=== PATIENT | male | born 1990 | race Caucasian/White ===

== ENCOUNTER 2019-10-18 22:22 | Inpatient (IN) | payer OTHER, SELFPAY ==
[2019-10-18] MEDS ORDERED: NA CHLORIDE 0.9% 1,000 ML ONE ×2 (23:00→23:40)
[2019-10-18 23:06] LABS: Absolute Lymphocytes (CBC) 1.4 K/uL (0.7-4.9); Basophils % 1.2 % (0-1.3); Hematocrit 37.7 % (39.6-49.0); Lymphocytes % 28.3 % (15.3-44.8); MPV 7.3 fL (7.6-11.3); RBC Red Blood Cell Count 4.03 M/uL (4.33-5.43)
[2019-10-18 23:19] LABS: ALT/SGPT 28 U/L (12-78); AST/SGOT 15 U/L (15-37); Albumin 3.7 g/dL (3.4-5.0); Alkaline Phosphatase 84 U/L (45-117); BUN Blood Urea Nitrogen 9 mg/dL (7-18); Bicarbonate 23 mmol/L (21-32); Bilirubin Direct < 0.1 mg/dL (0-0.2); Bilirubin Total 0.3 mg/dL (0.2-1.0); Lipase 1772 U/L (73-393); Potassium 3.6 mmol/L (3.5-5.1); Protein, Total 6.2 g/dL (6.4-8.2); Sodium Level 135 mmol/L (136-145)
[2019-10-18 23:20] LABS: Glucose Level 558 mg/dL (74-106)
--- NOTE | 2019-10-18 23:31 | ER ---
Nurse's Notes [facility] Name: Chinmay Mitchell Age: 29 yrs Sex: Male : 1990 Arrival Date: 10/18/2019 Time: 22:23 Bed 15 Private MD: Diagnosis: Other acute pancreatitis;Hyperglycemia, unspecified Presentation: 10/17 22:29 Chief complaint: Patient states: he is having abdominal pain since this morning with 3 bb to 4 episodes of diarrhea pt is type 1 diabetic his last BGL was 140 at 1800, he denies cough or fever. Coronavirus screen: At this time, the client does not indicate any symptoms associated with coronavirus-19. Ebola Screen: No symptoms or risks identified at this time. Initial Sepsis Screen: Does the patient meet any 2 criteria? No. Patient's initial sepsis screen is negative. Does the patient have a suspected source of infection? No. Patient's initial sepsis screen is negative. Risk Assessment: Do you want to hurt yourself or someone else? Patient reports no desire to harm self or others. Onset of symptoms was October 18, 2019. 22:29 Method Of Arrival: Ambulatory bb 22:29 Acuity: BROOKE 3 bb Triage Assessment: 22:32 General: Appears uncomfortable, slender, Behavior is calm, cooperative. Pain: Complains bb of pain in abdomen Pain currently is 10 out of 10 on a pain scale. GI: Reports upper abdominal pain, diarrhea. Historical: - Allergies: 22:32 Amoxicillin; bb - Home Meds: 22:32 insulin [Active]; bb - PMHx: 22:32 Diabetes - IDDM; bb - PSHx: 22:32 None; bb - Immunization history:: Adult Immunizations up to date. - Social history:: Smoking status: Patient reports the use of cigarette tobacco products, smokes one pack cigarettes per day. Screenin:30 Abuse screen: Denies threats or abuse. Nutritional screening: No deficits noted. vc Tuberculosis screening: No symptoms or risk factors identified. Fall Risk None identified. Assessment: 22:30 GI: Bowel sounds present X 4 quads. Abdomen is tender to palpation Guarding noted. vc 22:30 General: Appears in no apparent distress. uncomfortable, Behavior is calm, cooperative, vc appropriate for age. Pain: Complains of pain in left upper quadrant Pain does not radiate. Pain currently is 10 out of 10 on a pain scale. Quality of pain is described as sharp, stabbing, Pain began gradually, Is intermittent. Neuro: Level of Consciousness is awake, alert, obeys commands, Oriented to person, place, time, situation, Appropriate for age. Cardiovascular: Capillary refill < 3 seconds Patient's skin is warm and dry. Respiratory: Airway is patent Respiratory effort is even, unlabored, Respiratory pattern is regular, symmetrical. : No signs and/or symptoms were reported regarding the genitourinary system. EENT: No signs and/or symptoms were reported regarding the EENT system. Derm: Skin is intact, is healthy with good turgor, Skin temperature is warm. Musculoskeletal: Circulation, motion, and sensation intact. Range of motion:. 23:30 Reassessment: Patient appears in no apparent distress at this time. Patient and/or vc family updated on plan of care and expected duration. Pain level reassessed. Patient is alert, oriented x 3, equal unlabored respirations, skin warm/dry/pink. 10/18 00:30 Reassessment: Patient appears in no apparent distress at this time. Patient and/or vc family updated on plan of care and expected duration. Pain level reassessed. Patient is alert, oriented x 3, equal unlabored respirations, skin warm/dry/pink. Patient states symptoms have not improved. 01:14 Reassessment: FSBS 263. Reassessment: Patient appears in no apparent distress at this vc time. Patient and/or family updated on plan of care and expected duration. Pain level reassessed. Patient is alert, oriented x 3, equal unlabored respirations, skin warm/dry/pink. Patient states symptoms have improved. Vital Signs: 10/17 22:29 BP 146 / 91; Pulse 102; Resp 18 S; Temp 98.3(O); Pulse Ox 98% on R/A; Weight 68.04 kg bb (R); Height 5 ft. 10 in. (177.80 cm) (R); Pain 12/17; 22:30 BP 141 / 86; Pulse 91; Resp 18; Pulse Ox 99% ; vc 23:00 BP 133 / 92; Pulse 84; Resp 18; Pulse Ox 100% on R/A; vc 23:30 BP 139 / 86; Pulse 90; Resp 18; Pulse Ox 100% on R/A; vc 08/11 00:00 BP 126 / 75; Pulse 101; Resp 18; Pulse Ox 99% on R/A; vc 01:10 BP 127 / 79; Pulse 86; Resp 17; Pulse Ox 100% ; vc 10/17 22:29 Body Mass Index 21.52 (68.04 kg, 177.80 cm) bb ED Course: 10/17 22:23 Patient arrived in ED. cl3 22:31 Triage completed. bb 22:32 Arm band placed on Patient placed in an exam room, on a stretcher, on pulse oximetry. bb 22:36 Hiwot Morrison, TRELL is Primary Nurse. vc 22:38 Yusuf Jacobs PA is PHCP. jr8 22:38 Param Walden MD is Attending Physician. jr8 22:45 Initial lab(s) drawn, by me, sent to lab. Inserted saline lock: 20 gauge in right jp3 forearm, using aseptic technique. Blood collected. Patient maintains SpO2 saturation greater than 95% on room air. 22:52 Bed in low position. Call light in reach. Side rails up X 1. Verbal reassurance given. jp3 Pulse ox on. NIBP on. 22:52 Notified Nurse Practitioner and/or Physician Journeyman Molder of POC Blood Sugar reading = HI. jp3 23:30 Zahra Spencer MD is Hospitalizing Provider. jr8 10/18 02:01 No provider procedures requiring assistance completed. Patient admitted, IV remains in vc place. Administered Medications: 10/17 22:55 Drug: NS 0.9% 1000 ml Route: IV; Rate: 1000 ml; Site: right forearm; 23:53 Follow up: IV Status: Completed infusion vc 23:36 Drug: Insulin Regular Human 10 units {Co-Signature: [email or web address] (Liliana Recio RN).} Route: vc Sub-Q; Site: abdomen; 10/18 01:13 Follow up: Response: Blood sugar is lowered 10/17 23:36 Drug: NS 0.9% 1000 ml Route: IV; Rate: 125 ml/hr; Site: right antecubital; 10/18 01:14 Follow up: IV Status: Infusion continued upon admission vc 10/17 23:38 Drug: Insulin Regular Human 10 units {Co-Signature: asher (Liliana Recio RN).} Route: vc IVP; Site: right forearm; 10/18 01:13 Follow up: Response: Blood sugar is lowered vc Outcome: 10/17 23:30 Decision to Hospitalize by Provider. nelly 10/18 02:01 Admitted to Med/surg accompanied by tech, via wheelchair, with chart. vc Condition: good Instructed on the need for admit. 02:01 Patient left the ED. vc Signatures: Bronwyn Holbrook, RN RN Yusuf Maria PA PA jr8 Bo Lorenzo jp3 Brett Bee cl3 Hiwot Morrison RN RN vc Liliana Recio RN ks7
--- NOTE | 2019-10-18 23:31 | EDPHYS ---
Physician Documentation [facility] Name: Chinmay Mitchell Age: 29 yrs Sex: Male : 1990 Arrival Date: 10/18/2019 Time: 22:23 Bed 15 Private MD: ED Physician Param Walden HPI: 10/17 23:22 This 29 yrs old Male presents to ER via Ambulatory with complaints of jr8 Abdominal Pain. 23:22 The patient presents with abdominal pain in the upper abdomen. Onset: The jr8 symptoms/episode began/occurred acutely, this morning. The symptoms do not radiate. Associated signs and symptoms: Pertinent positives: diarrhea, nausea. The symptoms are described as sharp. Modifying factors: The symptoms are alleviated by nothing, the symptoms are aggravated by nothing. Severity of pain: At its worst the pain was moderate in the emergency department the pain is unchanged. The patient has not experienced similar symptoms in the past. The patient has not recently seen a physician. Historical: - Allergies: 22:32 Amoxicillin; bb - Home Meds: 22:32 insulin [Active]; bb - PMHx: 22:32 Diabetes - IDDM; bb - PSHx: 22:32 None; bb - Immunization history:: Adult Immunizations up to date. - Social history:: Smoking status: Patient reports the use of cigarette tobacco products, smokes one pack cigarettes per day. ROS: 23:27 Eyes: Negative for injury, pain, redness, and discharge, ENT: Negative for injury, jr8 pain, and discharge, Neck: Negative for injury, pain, and swelling, Cardiovascular: Negative for chest pain, palpitations, and edema, Respiratory: Negative for shortness of breath, cough, wheezing, and pleuritic chest pain, Back: Negative for injury and pain, MS/Extremity: Negative for injury and deformity, Skin: Negative for injury, rash, and discoloration, Neuro: Negative for headache, weakness, numbness, tingling, and seizure. 23:27 Abdomen/GI: Positive for abdominal pain, nausea, diarrhea, Negative for abdominal distension, anorexia, hematemesis, black/tarry stool, rectal pain, rectal bleeding, bowel incontinence, flatulence. Exam: 23:27 Eyes: Pupils equal round and reactive to light, extra-ocular motions intact. Lids and jr8 lashes normal. Conjunctiva and sclera are non-icteric and not injected. Cornea within normal limits. Periorbital areas with no swelling, redness, or edema. ENT: Nares patent. No nasal discharge, no septal abnormalities noted. Tympanic membranes are normal and external auditory canals are clear. Oropharynx with no redness, swelling, or masses, exudates, or evidence of obstruction, uvula midline. Mucous membranes moist. Neck: Trachea midline, no thyromegaly or masses palpated, and no cervical lymphadenopathy. Supple, full range of motion without nuchal rigidity, or vertebral point tenderness. No Meningismus. Cardiovascular: Regular rate and rhythm with a normal S1 and S2. No gallops, murmurs, or rubs. Normal PMI, no JVD. No pulse deficits. Respiratory: Lungs have equal breath sounds bilaterally, clear to auscultation and percussion. No rales, rhonchi or wheezes noted. No increased work of breathing, no retractions or nasal flaring. Back: No spinal tenderness. No costovertebral tenderness. Full range of motion. Skin: Warm, dry with normal turgor. Normal color with no rashes, no lesions, and no evidence of cellulitis. MS/ Extremity: Pulses equal, no cyanosis. Neurovascular intact. Full, normal range of motion. Neuro: Awake and alert, GCS 15, oriented to person, place, time, and situation. Cranial nerves II-XII grossly intact. Motor strength 5/5 in all extremities. Sensory grossly intact. Cerebellar exam normal. Normal gait. 23:27 Abdomen/GI: Inspection: abdomen appears normal, Bowel sounds: active, all quadrants, Palpation: soft, in all quadrants, moderate abdominal tenderness, in the epigastric area and left upper quadrant, mass, is not appreciated, rebound tenderness, is not appreciated, voluntary guarding, is not appreciated, involuntary guarding, is not appreciated, no appreciated organomegaly, Indicators: McBurney's point is not tender, Lawson's sign is negative, Rovsing's sign is negative, Liver: tenderness, is not appreciated. Vital Signs: 22:29 BP 146 / 91; Pulse 102; Resp 18 S; Temp 98.3(O); Pulse Ox 98% on R/A; Weight 68.04 kg bb (R); Height 5 ft. 10 in. (177.80 cm) (R); Pain 10/10; 22:30 BP 141 / 86; Pulse 91; Resp 18; Pulse Ox 99% ; vc 23:00 BP 133 / 92; Pulse 84; Resp 18; Pulse Ox 100% on R/A; vc 23:30 BP 139 / 86; Pulse 90; Resp 18; Pulse Ox 100% on R/A; vc 10/18 00:00 BP 126 / 75; Pulse 101; Resp 18; Pulse Ox 99% on R/A; vc 01:10 BP 127 / 79; Pulse 86; Resp 17; Pulse Ox 100% ; vc 10/17 22:29 Body Mass Index 21.52 (68.04 kg, 177.80 cm) bb MDM: 10/17 22:38 Patient medically screened. [facility] 23:29 Data reviewed: vital signs, nurses notes, lab test result(s), radiologic studies, CT jr scan. Data interpreted: Pulse oximetry: on room air is 98 %. Interpretation: normal. Counseling: I had a detailed discussion with the patient and/or guardian regarding: the historical points, exam findings, and any diagnostic results supporting the discharge/admit diagnosis, lab results, radiology results, the need for further work-up and treatment in the hospital. 10/17 22:38 Order name: Basic Metabolic Panel [facility] 10/17 22:38 Order name: CBC with Diff [facility] 10/17 22:38 Order name: Hepatic Function [facility] 10/17 22:38 Order name: Lipase [facility] 10/17 22:47 Order name: Ketone, Serum [facility] 10/17 22:59 Order name: Glucose, Ancillary Testing; Complete Time: 23:13 [facility] 10/17 23:08 Order name: CBC with Automated Diff; Complete Time: 23:13 EDOH 10/17 23:20 Order name: Basic Metabolic Panel; Complete Time: 23:23 EDOH 10/17 23:20 Order name: Liver (Hepatic) Function; Complete Time: 23:23 EDOH 10/17 23:20 Order name: Lipase; Complete Time: 23:23 EDOH 10/17 23:25 Order name: CT Abd/Pelvis - IV Contrast Only [facility] 10/18 01:25 Order name: Glucose, Ancillary Testing; Complete Time: 01:34 EDOH 10/17 22:38 Order name: IV Saline Lock; Complete Time: 22:54 [facility] 10/17 22:38 Order name: Labs collected and sent; Complete Time: 22:54 jr8 Administered Medications: 22:55 Drug: NS 0.9% 1000 ml Route: IV; Rate: 1000 ml; Site: right forearm; vc 23:53 Follow up: IV Status: Completed infusion vc 23:36 Drug: Insulin Regular Human 10 units {Co-Signature: [email or web address] (Liliana Recio RN).} Route: vc Sub-Q; Site: abdomen; 10/18 01:13 Follow up: Response: Blood sugar is lowered vc 10/17 23:36 Drug: NS 0.9% 1000 ml Route: IV; Rate: 125 ml/hr; Site: right antecubital; vc 10/18 01:14 Follow up: IV Status: Infusion continued upon admission vc 10/17 23:38 Drug: Insulin Regular Human 10 units {Co-Signature: [email or web address] (Liliana Recio RN).} Route: vc IVP; Site: right forearm; 10/18 01:13 Follow up: Response: Blood sugar is lowered vc Disposition: 10/18/19 23:30 Hospitalization ordered by Zahra Spencer for Inpatient Admission. Preliminary diagnosis are Other acute pancreatitis, Hyperglycemia, unspecified. - Bed requested for Telemetry/MedSurg (Inpatient). - Status is Inpatient Admission. vc - Condition is Stable. - Problem is new. - Symptoms are unchanged. Addendum: 10/25/2019 07:04 Co-signature as Attending Physician, Param Walden MD. r n Signatures: Dispatcher [employer] EDMS Bronwyn Holbrook RN RN bb Nieto, Roman, MD MD rn Roszak, Josh, PA PA jr8 Nelsy Lewis RN RN Hiwot Morrison RN RN Liliana Recio RN [email or web address] Corrections: (The following items were deleted from the chart) 10/18 01:01 10/17 23:30 Hospitalization Ordered by Zahra Spencer MD for Inpatient Admission. cg Preliminary diagnosis is Other acute pancreatitis; Hyperglycemia, unspecified. Bed requested for Telemetry/MedSurg (Inpatient). Status is Inpatient Admission. Condition is Stable. Problem is new. Symptoms are unchanged. jr8 10/18 02:01 01:01 10/18/2019 23:30 Hospitalization Ordered by Zahra Spencer MD for Inpatient vc Admission. Preliminary diagnosis is Other acute pancreatitis; Hyperglycemia, unspecified. Bed requested for Telemetry/MedSurg (Inpatient). Status is Inpatient Admission. Condition is Stable. Problem is new. Symptoms are unchanged. cg
[2019-10-18] MEDS ORDERED: INSULIN -REGULAR HUMAN 50 UNIT/0.5 ML ML ONE (23:39)
--- NOTE | 2019-10-19 01:08 | P.HP ---
Certification for Inpatient With expected LOS: >2 Midnights Patient will require the following post-hospital care: None Practitioner: I am a practitioner with admitting privileges, knowledge of patient current condition, hospital course, and medical plan of care. Services: Services provided to patient in accordance with Admission requirements found in Title 42 Section 412.3 of the Code of Federal Regulations <Jesus Gunter - Last Filed: 10/19/19 01:11> Patient History Date of Service: 10/19/19 Primary Care Provider: Alex Martinez Reason for admission: Acute pancreatitis History of Present Illness: 29-year-old male with a past medical history of type 1 diabetes mellitus presents to the emergency room with complaints of worsening abdominal pain. Patient states that the onset was acutely this morning and has progressively worsened. Patient states he has had some diarrhea and nausea this morning and now has mostly resolved. In the emergency room patient was noted to have a blood glucose higher than 500 on fingerstick with lab work showing a glucose level of 558. Patient states that he did not take his medication today. States he had breakfast and had worsening abdominal pain. States he went to the rest on the bed and his pain never resolved. He came to the emergency room. Patient states he does not drink alcohol. He is a heavy smoker and smokes 1 pack of cigarettes per day. Denies any drug use. Lab work in the emergency room shows a blood glucose of 558. Patient has a lipase of 1772. Rest of lab work is unremarkable. CT scan abdomen pelvis pending. On physical exam patient is complaining of left upper quadrant pain. States that the pain medications have helped but that all last long enough. He is alert and oriented x3. In mild distress from the left upper quadrant pain. Patient will be admitted and further evaluated. Home medications list reviewed: Yes - Past Medical/Surgical History Diabetic: Yes -: Type 1 diabetes mellitus -: None Psychosocial/ Personal History: , lives at home with - Family History Family History: Reviewed- Non-Contributory - Social History Smoking Status: Heavy Tobacco smoker (>10 cigarettes/day) Counseled patient to stop smoking for: more than 10 minutes Smoking therapy provided: No (Refused) Patient receptive to therapy: No Alcohol use: No CD- Drugs: No Caffeine use: Yes Place of Residence: Home <Jesus Gunter - Last Filed: 10/19/19 01:11> Date of Service: 10/26/19 <Zahra Spencer - Last Filed: 10/26/19 11:43> Allergies amoxicillin Allergy (Verified 10/19/19 02:45) Unknown Home Medications: Insulin Detemir [Levemir Flextouch] 30 unit SQ BID 10/19/19 Review of Systems General: As per HPI Eyes: Unremarkable ENT: Unremarkable Respiratory: Unremarkable Cardiovascular: Unremarkable Gastrointestinal: Nausea, Vomiting, Abdominal Pain (Left upper quadrant pain), Diarrhea Genitourinary: Unremarkable Musculoskeletal: Unremarkable Integumentary: Unremarkable Neurological: Unremarkable <Jesus Gunter - Last Filed: 10/19/19 01:11> Physical Examination - Vital Signs Temperature: 98.3 F Blood Pressure: 146/91 Pulse: 102 Respirations: 18 Pulse Ox (%): 98 (RA) - Physical Exam General: Alert, Oriented x3, Mild distress HEENT: Atraumatic, Normocephalic, PERRLA, Mucous membr. moist/pink Neck: Supple, No Thyromegaly Respiratory: Clear to auscultation bilaterally, Normal air movement Cardiovascular: No edema, Normal pulses, Normal S1 S2 Capillary refill: <2 Seconds Gastrointestinal: Normal bowel sounds, Soft and benign, Tenderness (Mild to moderate pain with palpation to left upper quadrant) Musculoskeletal: No clubbing, No swelling, No contractures Integumentary: No breakdown, No significant lesion, No tenderness/swelling Neurological: Normal speech, Normal strength at 5/5 x4 extr, Normal tone - Studies Laboratory Data (last 24 hrs) 10/18/19 22:45: Sodium 135 L, Potassium 3.6, BUN 9, Creatinine 0.80, Glucose 558 H*, Total Bilirubin 0.3, AST 15, ALT 28, Alkaline Phosphatase 84, Lipase 1772 H 10/18/19 22:45: WBC 5.0, Hgb 13.1 L, Hct 37.7 L, Plt Count 302 <Jesus Gunter - Last Filed: 10/19/19 01:11> Assessment and Plan - Plan Impression: Acute pancreatitis: Type 1 diabetes mellitus: Nicotine dependence: Plan: Acute pancreatitis: Sudden onset this morning. Patient denies alcohol use but smokes 1 pack of cigarettes a day. Will start gentle IV hydration and pain control with IV morphine. Will keep patient NPO except for ice chips. Will trend lipase. Goal is to slowly start patient back on clear liquid diet and advanced as tolerated. Type 1 diabetes mellitus: Patient is insulin-dependent type 1 diabetic. Will order hemoglobin A1c for the morning. Will start Accu-Cheks a.c. HS and sliding scale insulin. Monitor blood glucose. Nicotine dependence: Patient smokes 1 pack of cigarettes per day. Patient does not want a nicotine patch at this time. Counseled greater than 15 min. Discharge Plan: Home Plan to discharge in: Greater than 2 days - Advance Directives Does patient have a Living Will: No Does patient have a Durable POA for Healthcare: No - Code Status/Comfort Care Code Status Assessed: Yes Time Spent Managing Pts Care (In Minutes): 55 <Jesus Gunter - Last Filed: 10/19/19 01:11> Date of Service: 10/19/19 Patient was admitted with pain and nausea and vomiting. Lipase was elevated. Patient was found have acute pancreatitis. Vitals-reviewed Physical exam: Awake, alert, oriented x3 cardiovascular: Regular rate and rhythm no murmur Lungs: Clear bilaterally Extremity: No clubbing, no cyanosis Assessment: 1. Acute pancreatitis 2. Poorly controlled diabetes Plan: 1. IV hydration 2. Repeat lipase level 3. Pain control 4. Antiemetics 5. Monitor labs and electrolytes 6. GI and DVT prophylaxis <Zahra Spencer - Last Filed: 10/26/19 11:43>
[2019-10-19] MEDS ORDERED: ACETAMINOPHEN 500 MG TAB PO PRN (01:31)
[2019-10-19] MEDS: NA CHLORIDE 0.9% 1,000 ML IV SCH ×4 (01:31→21:31)
[2019-10-19 02:05] VITALS: BMI 19.6
[2019-10-19] MEDS: INSULIN -REGULAR HUMAN 50 UNIT/0.5 ML ML SQ SCH ×4 (05:26→20:37)
[2019-10-19 06:43] LABS: Potassium 3.3 mmol/L (3.5-5.1)
[2019-10-19] MEDS ORDERED: INSULIN -REGULAR HUMAN 50 UNIT/0.5 ML ML SQ SCH (07:30)
[2019-10-19] MEDS: KCL 20 MEQ/100 mL IVPB 20 MEQ/100 ML BAG IV SCH ×2 (08:00→10:10)
[2019-10-19] MEDS: ENOXAPARIN 40 MG/0.4 ML SQ SCH (08:01)
[2019-10-19 11:37] LABS: Urine Appearance CLEAR; Urine Bilirubin NEGATIVE (NEG); Urine Blood NEGATIVE (NEG); Urine Color YELLOW; Urine Glucose 3+ (NEG); Urine Protein NEGATIVE (NEG); Urine Specific Gravity >=1.030 (1.005-1.030); Urine Urobilinogen 0.2 mg/dL (0.2-1.0)
[2019-10-19 12:03] LABS: Urine Microscopic Reflex NO UMIC
--- NOTE | 2019-10-19 12:48 | RAD REPORT ---
EXAM DESCRIPTION: CT - Abdomen Pelvis W Contrast - 10/19/2019 1:36 am CLINICAL HISTORY: Abdominal pain TECHNIQUE: Contiguous axial images obtained through the abdomen and pelvis following the uneventful administration of IV contrast. Coronal and sagittal reformatted images were provided. This exam was performed according to our departmental dose-optimization program, which includes autom ated exposure control, adjustment of the mA and/or kV according to patient size and/or use of iterati ve reconstruction technique. COMPARISON: None available for comparison. FINDINGS: Lung bases: Clear Liver: The liver is enlarged. Gallbladder and biliary system: Unremarkable Pancreas: Unremarkable Spleen: Unremarkable Adrenals: Unremarkable Kidneys: Normal renal cortical enhancement. No calculi. No hydronephrosis. Bowel: Multiple small bowel loops appear somewhat thickened. Air-fluid levels are present throughout the large bowel. No obstruction. Appendix: Normal caliber appendix. No findings to suggest acute appendicitis. Urinary bladder: The urinary bladder is significantly distended. Reproductive: Unremarkable as visualized Lymph nodes: No pathologically enlarged lymph nodes. Peritoneum: Trace free fluid within the paracolic gutters bilaterally. No free air. Vessels: No abdominal aortic aneurysm. Abdominal wall: Unremarkable Bones: Unremarkable IMPRESSION: 1. Findings which may be related to mild nonspecific enteritis. Air-fluid levels within the large elisabet wel which can be seen in the clinical setting of diarrhea. 2. Other findings as above. Electronically signed by: Barry Roca MD 10/19/2019 1:01 AM CDT Due to temporary technical issues with the PACS/Fluency reporting system, reports are being signed by the in house radiologist without review as a courtesy to ensure prompt reporting. The interpreting r adiologist is fully responsible for the content of the report.
[2019-10-19] MEDS: INSULIN GLARGINE 100 UNITS/ML SQ SCH (20:37)
[2019-10-19] MEDS ORDERED: POTASSIUM 25 MEQ EFFERV TAB PO ONE (22:00)
[2019-10-20] MEDS: NA CHLORIDE 0.9% 1,000 ML IV SCH ×2 (04:34→07:31)
[2019-10-20 06:16] LABS: Absolute Lymphocytes (CBC) 1.6 K/uL (0.7-4.9); Basophils % 0.7 % (0-1.3); Hematocrit 35.9 % (39.6-49.0); Lymphocytes % 28.5 % (15.3-44.8); MPV 6.9 fL (7.6-11.3); RBC Red Blood Cell Count 3.88 M/uL (4.33-5.43)
[2019-10-20 06:22] LABS: BUN Blood Urea Nitrogen 5 mg/dL (7-18); Bicarbonate 25 mmol/L (21-32); Glucose Level 98 mg/dL (74-106); HDL Cholesterol 41 mg/dL (40-60); LDL Cholesterol, Calculated 42 (<130); Lipase 53 U/L (73-393); Magnesium 1.6 mg/dL (1.8-2.4); Phosphorus 3.7 mg/dL (2.5-4.9); Potassium 3.2 mmol/L (3.5-5.1); Sodium Level 142 mmol/L (136-145)
[2019-10-20] MEDS: INSULIN -REGULAR HUMAN 50 UNIT/0.5 ML ML SQ SCH ×2 (07:30→11:30)
[2019-10-20] MEDS ORDERED: MAGNESIUM SULFATE 1 gm IVPB 1 GM/100 ML BAG IV ONE (08:00)
[2019-10-20] MEDS: ENOXAPARIN 40 MG/0.4 ML SQ SCH (08:01)
[2019-10-20] MEDS: INSULIN GLARGINE 100 UNITS/ML SQ SCH (08:01)
[2019-10-20] MEDS ORDERED: POTASSIUM CL SA 10 MEQ TAB PO ONE (09:00)
[2019-10-20 09:16] VITALS: O2SAT 98
[2019-10-20 12:08] VITALS: TEMP 97.5
[2019-10-20 16:51] VITALS: BP 125/79
--- NOTE | 2019-10-26 11:45 | P.DS ---
Discharge Date: 10/20/19 Primary Care Provider: Alex Martinez Disposition: ROUTINE DISCHARGE Discharge Condition: GOOD Reason for Admission: Acute pancreatitis Brief History of Present Illness: Patient is a 29-year-old gentleman who came into the hospital with acute pancreatitis. Hospital Course: Patient's symptoms improve quicker than expected. His lipase normalized. He was not a drinker and did not have gallstones. Triglycerides were normal. I was sure as to the etiology of his pancreatitis. It could have just been a viral gastroenteritis with secondary pancreatitis. At this time, patient is doing well. Was stable for discharge home with outpatient follow up. Vital Signs/Physical Exam: Temp Pulse Resp BP Pulse Ox 97.5 F 68 16 125/79 100 10/20/19 16:00 10/20/19 16:00 10/20/19 16:00 10/20/19 16:00 10/20/19 16:00 General: Alert, In no apparent distress, Oriented x3 Laboratory Data at Discharge: WBC Cancelled 10/20/19 06:00 Hgb Cancelled 10/20/19 06:00 Hct Cancelled 10/20/19 06:00 Plt Count Cancelled 10/20/19 06:00 Sodium Cancelled 10/20/19 06:00 Potassium 3.5 mmol/L (3.5-5.1) 10/20/19 15:26 BUN Cancelled 10/20/19 06:00 Creatinine Cancelled 10/20/19 06:00 Glucose Cancelled 10/20/19 06:00 Phosphorus Cancelled 10/20/19 06:00 Magnesium Cancelled 10/20/19 06:00 Total Bilirubin 0.3 mg/dL (0.2-1.0) 10/18/19 22:45 AST 15 U/L (15-37) 10/18/19 22:45 ALT 28 U/L (12-78) 10/18/19 22:45 Alkaline Phosphatase 84 U/L (45-117) 10/18/19 22:45 Triglycerides Cancelled 10/20/19 06:00 Cholesterol Cancelled 10/20/19 06:00 HDL Cholesterol Cancelled 10/20/19 06:00 Cholesterol/HDL Ratio Cancelled 10/20/19 06:00 Lipase 53 U/L (73-393) L 10/20/19 05:52 Home Medications: Insulin Detemir [Levemir Flextouch] 30 unit SQ BID 10/19/19 Patient Discharge Instructions: OK TO DC IV AND DC HOME. FOLLOW-UP WITH PRIMARY CARE PROVIDER IN 1-2 WEEKS. RETURN TO THE ER IF symptoms worsen. CALL or TEXT DR. CHANEY AT [phone] IF ANY QUESTIONS REGARDING HOSPITAL STAY. PLEASE CALL THE FLOOR AT [phone] IF ANY MEDICATION OR NURSING QUESTIONS. Diet: ADA Activity: Ad jaun Time spent managing pt's care (in minutes): 25
== END 2019-10-20 16:09 | disposition home or self-care (01) | DRG 438 ==
LOC: ER 22:22 → ERHOLD 10-19 00:51 → 2ND 10-19 01:27
PROVIDERS: ADMIT Hospitalist; ATTEND Hospitalist
DX: K85.90 Acute pancreatitis without necrosis or infection, unspecified (principal); E10.10 Type 1 diabetes mellitus with ketoacidosis without coma; F17.210 Nicotine dependence, cigarettes, uncomplicated; Z88.1 Allergy status to other antibiotic agents; Z79.4 Long term (current) use of insulin; Z11.59 Encounter for screening for other viral diseases
CPT/HCPCS: 36415; 74177; 80048; 80061; 80076; 81003; 82947; 83036; 83690; 83735; 84100; 84132; 85025; 96361; 96372; 96374; 99285; J1650; J1815; J3475; J3480; J7030; Q9967; U0002

== ENCOUNTER 2020-03-27 00:59 | Emergency (ER) | payer OTHER, SELFPAY ==
[2020-03-27] MEDS ORDERED: ONDANSETRON 4 MG/2 ML VIAL ONE (01:53)
[2020-03-27] MEDS ORDERED: FAMOTIDINE 20 MG/2 ML VIAL IV ONE (01:53)
[2020-03-27] MEDS ORDERED: MORPHINE 4 MG/ML SYR ONE (01:53)
[2020-03-27] MEDS ORDERED: NA CHLORIDE 0.9% 1,000 ML ONE ×2 (01:53→03:08)
[2020-03-27 01:59] LABS: Absolute Lymphocytes (CBC) 1.3 K/uL (0.7-4.9); Basophils % 0.7 % (0-1.3); Hematocrit 37.7 % (39.6-49.0); Lymphocytes % 25.4 % (15.3-44.8); MPV 7.3 fL (7.6-11.3); RBC Red Blood Cell Count 3.96 M/uL (4.33-5.43)
[2020-03-27 02:48] LABS: ALT/SGPT 27 U/L (12-78); AST/SGOT 14 U/L (15-37); Albumin 3.7 g/dL (3.4-5.0); Alkaline Phosphatase 93 U/L (45-117); BUN Blood Urea Nitrogen 11 mg/dL (7-18); Bicarbonate 26 mmol/L (21-32); Bilirubin Direct < 0.1 mg/dL (0-0.2); Bilirubin Total 0.3 mg/dL (0.2-1.0); Glucose Level 473 mg/dL (74-106); Lipase 635 U/L (73-393); Potassium 3.9 mmol/L (3.5-5.1); Sodium Level 132 mmol/L (136-145)
[2020-03-27] MEDS ORDERED: INSULIN -REGULAR HUMAN 50 UNIT/0.5 ML ML ONE (03:13)
[2020-03-27 03:25] LABS: Arterial Blood Carboxyhemoglob 4.4 % (0-1.5); Blood Gas Oxyhemoglobin 90.5 % (94-97); Blood O2 Saturation 95.5 % (92-98.5)
--- NOTE | 2020-03-27 03:46 | EDPHYS ---
Physician Documentation [facility] Name: Chinmay Mitchell Age: 30 yrs Sex: Male : 1990 Arrival Date: 03/27/2020 Time: 01:02 Bed 5 Private MD: ED Physician Mario Quinonez HPI: 03/27 01:42 This 30 yrs old Male presents to ER via Ambulatory with complaints of mh7 Abdominal Pain. 01:42 The patient presents with abdominal pain in the lower abdomen. Onset: The mh7 symptoms/episode began/occurred 1 week(s) ago. The symptoms do not radiate. Associated signs and symptoms: Pertinent positives: diarrhea, Pertinent negatives: nausea and vomiting, anorexia, blood in stools, chest pain, constipation, dysuria, fever, headache, hematuria, nausea, palpitations, shortness of breath, testicular pain, vomiting, vomiting blood. The symptoms are described as intermittent, vague, waxing/waning. Modifying factors: The symptoms are alleviated by nothing, the symptoms are aggravated by nothing. Severity of pain: At its worst the pain was moderate 5 day(s) ago, in the emergency department the pain has improved moderately. 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 - Social history:: Smoking status: Patient reports the use of cigarette tobacco products, smokes one pack cigarettes per day. ROS: 01:42 Constitutional: Negative for fever, chills, and weight loss, Eyes: Negative for injury, mh7 pain, redness, and discharge, ENT: Negative for injury, pain, and discharge, Neck: Negative for injury, pain, and swelling, Cardiovascular: Negative for chest pain, palpitations, and edema, Respiratory: Negative for shortness of breath, cough, wheezing, and pleuritic chest pain, Back: Negative for injury and pain, : Negative for injury, bleeding, discharge, and swelling, MS/Extremity: Negative for injury and deformity, Skin: Negative for injury, rash, and discoloration, Neuro: Negative for headache, weakness, numbness, tingling, and seizure, Psych: Negative for depression, anxiety, suicide ideation, homicidal ideation, and hallucinations, Allergy/Immunology: Negative for hives, rash, and allergies, Endocrine: Negative for neck swelling, polydipsia, polyuria, polyphagia, and marked weight changes, Hematologic/Lymphatic: Negative for swollen nodes, abnormal bleeding, and unusual bruising. Exam: 01:42 Constitutional: This is a well developed, well nourished patient who is awake, alert, mh7 and in no acute distress. Head/Face: Normocephalic, atraumatic. Eyes: Pupils equal round and reactive to light, extra-ocular motions intact. Lids and lashes normal. Conjunctiva and sclera are non-icteric and not injected. Cornea within normal limits. Periorbital areas with no swelling, redness, or edema. Neck: Trachea midline, no thyromegaly or masses palpated, and no cervical lymphadenopathy. Supple, full range of motion without nuchal rigidity, or vertebral point tenderness. No Meningismus. Chest/axilla: Normal chest wall appearance and motion. Nontender with no deformity. No lesions are appreciated. Cardiovascular: Regular rate and rhythm with a normal S1 and S2. No gallops, murmurs, or rubs. Normal PMI, no JVD. No pulse deficits. Respiratory: Lungs have equal breath sounds bilaterally, clear to auscultation and percussion. No rales, rhonchi or wheezes noted. No increased work of breathing, no retractions or nasal flaring. 01:42 Back: No spinal tenderness. No costovertebral tenderness. Full range of motion. Skin: Warm, dry with normal turgor. Normal color with no rashes, no lesions, and no evidence of cellulitis. MS/ Extremity: Pulses equal, no cyanosis. Neurovascular intact. Full, normal range of motion. Neuro: Awake and alert, GCS 15, oriented to person, place, time, and situation. Cranial nerves II-XII grossly intact. Motor strength 5/5 in all extremities. Sensory grossly intact. Cerebellar exam normal. Normal gait. Psych: Awake, alert, with orientation to person, place and time. Behavior, mood, and affect are within normal limits. 01:42 Abdomen/GI: Inspection: abdomen appears normal, Bowel sounds: normal, in all quadrants, Palpation: moderate abdominal tenderness, in the left lower quadrant, Rectal exam: the exam is deferred, because of patient request, Indicators: McBurney's point is not tender, Lawson's sign is negative, Rovsing's sign is negative, Obturator sign is negative, Psoas sign is negative, Liver: no appreciated palpable abnormalities, Hernia: not appreciated. Vital Signs: 01:16 BP 139 / 94; Pulse 89; Resp 16; Temp 97.9(O); Pulse Ox 99% on R/A; Weight 68.04 kg (R); lp1 Height 6 ft. 0 in. (182.88 cm); Pain 3/10; 03:21 Pulse 86; Resp 18; Pulse Ox 100% on R/A; mg2 03:59 BP 135 / 75; Pulse 80; Resp 17; Pulse Ox 99% ; rr5 01:16 Body Mass Index 20.34 (68.04 kg, 182.88 cm) lp1 MDM: 03:42 Differential diagnosis: bowel obstruction, diverticulitis, non-specific abd pain, mh7 pancreatitis, urinary tract infection, DKA, Colitis, Enteritis. Data reviewed: vital signs, nurses notes, old medical records, lab test result(s), amylase and lipase, CBC, electrolytes, urinalysis, radiologic studies, CT scan. Data interpreted: Pulse oximetry: on room air is 100 %. Interpretation: normal. Counseling: I had a detailed discussion with the patient and/or guardian regarding: the historical points, exam findings, and any diagnostic results supporting the discharge/admit diagnosis, lab results, radiology results, the need for further work-up and treatment in the hospital. Response to treatment: the patient's symptoms have resolved after treatment, the patient's blood pressure is in an acceptable range, mental status has returned to baseline, the patient no longer shows bradycardia, the patient is not short of breath, the patient is not tachycardic, the patient's pain is gone, the patient's temperature has normalized. Refusal of service: The patient/guardian displays adequate decision making capability and despite a detailed discussion of alternatives, benefits, risks, and consequences refuses: Admission to the hospital for further work-up and treatment. 03:46 Patient medically screened. [facility] 03/27 01:33 Order name: Basic Metabolic Panel; Complete Time: 02:49 [facility] 03/27 01:33 Order name: CBC with Diff; Complete Time: 02:18 [facility] 03/27 01:33 Order name: Hepatic Function; Complete Time: 02:49 [facility] 03/27 01:33 Order name: Lipase; Complete Time: 02:49 [facility] 03/27 02:49 Order name: Ketone, Serum; Complete Time: 03:10 [facility] 03/27 03:11 Order name: Arterial Blood Gas [facility] 03/27 02:18 Order name: CT Abd/Pelvis - IV Contrast Only [facility] 03/27 03:50 Order name: Urine Dipstick--Ancillary (enter results) [facility] 03/27 01:33 Order name: IV Saline Lock; Complete Time: 01:47 [facility] 03/27 01:33 Order name: Labs collected and sent; Complete Time: 01:48 [facility] 03/27 01:33 Order name: Urine Dipstick-Ancillary (obtain specimen); Complete Time: 03:44 Administered Medications: 01:46 Drug: Pepcid 20 mg Route: IVP; Site: right antecubital; mg2 03:09 Follow up: Response: No adverse reaction mg2 01:47 Drug: NS 0.9% 1000 ml Route: IV; Rate: 1000 ml; Site: right antecubital; mg2 03:10 Follow up: Response: No adverse reaction; IV Status: Completed infusion; IV Intake: mg2 1000ml 01:47 Drug: morphine 4 mg Route: IVP; Site: right antecubital; mg2 03:10 Follow up: Response: No adverse reaction mg2 01:47 Drug: Zofran (Ondansetron) 4 mg Route: IVP; Site: right antecubital; mg2 03:09 Follow up: Response: No adverse reaction mg2 03:09 Drug: Insulin Regular Human 10 units {Co-Signature: rr5 (Kamari Hays RN).} Route: mg2 IVP; Site: right antecubital; 03:57 Follow up: Response: No adverse reaction; Blood sugar is lowered rr5 03:10 Drug: NS 0.9% 1000 ml Route: IV; Rate: 1000 ml; Site: right antecubital; mg2 03:57 Follow up: Response: No adverse reaction; IV Status: Completed infusion; IV Intake: rr5 1000ml 03:42 CANCELLED (Duplicate Order): Cipro 500 mg PO once rr5 03:42 CANCELLED (Duplicate Order): Flagyl 500 mg PO once rr5 03:55 Drug: Cipro 500 mg Route: PO; rr5 03:57 Follow up: Response: Medication administered at discharge. rr5 03:55 Drug: Flagyl 500 mg Route: PO; rr5 03:57 Follow up: Response: Medication administered at discharge. rr5 Disposition: 03/27/20 03:46 Patient has left against medical advice. Impression: Enteritis, Pancreatitis, Diabetic Ketoacidosis. - Patients states they are going to Home. - Condition is Stable. - Discharge Instructions: Acute Pancreatitis, [id number], Viral Gastroenteritis, Adult, [id number], Diabetic Ketoacidosis. - Prescriptions for Bentyl 20 mg Oral Tablet - take 1 tablet by ORAL route every 6 hours As needed; 20 tablet. Flagyl 500 mg Oral Tablet - take 1 tablet by ORAL route every 8 hours for 7 days; 21 tablet. Pepcid 20 mg Oral Tablet - take 1 tablet by ORAL route every 12 hours for 5 days; 10 tablet. Cipro 500 mg Oral Tablet - take 1 tablet by ORAL route every 12 hours for 7 days; 14 tablet. Follow up: Private Physician; When: Today; Reason: Worsening of condition, Recheck today's complaints, Continuance of care, Re-evaluation by your physician. - Problem is an acute exacerbation. - Symptoms have improved. Signatures: Dispatcher [employer] EDMS Ml Bernardo RN RN lp1 Quan Romero RN RN mg2 Kamari Hays RN RN rr5 Mario Quinonez MD MD 7 Kamari Hays RN rr5 Corrections: (The following items were deleted from the chart) 03:42 03:42 Cipro 500 mg PO once ordered. [facility] rr5 03:42 03:42 Flagyl 500 mg PO once ordered. [facility] rr5 03:59 03:46 03/27/2020 03:46 Patients has left against medical advice. Impression: Enteritis; rr5 Pancreatitis; Diabetic Ketoacidosis. Patient states they are going to Home. Condition is Stable. Follow up: Private Physician; When: Today; Reason: Worsening of condition, Recheck today's complaints, Continuance of care, Re-evaluation by your physician. Problem is an acute exacerbation. Symptoms have improved. [facility]
--- NOTE | 2020-03-27 03:46 | ER ---
Nurse's Notes [facility] Name: Chinmay Mitchell Age: 30 yrs Sex: Male : 1990 Arrival Date: 03/27/2020 Time: 01:02 Bed 5 Private MD: Diagnosis: Enteritis;Pancreatitis;Diabetic Ketoacidosis Presentation: 03/27 01:16 Chief complaint: Patient states: left lower abdominal pain and rectal pain; reports lp1 diarrhea x 1 week; Denies fever, N/V. Coronavirus screen: Client denies travel out of the [place] in the last 14 days. At this time, the client does not indicate any symptoms associated with coronavirus-19. Ebola Screen: No symptoms or risks identified at this time. Initial Sepsis Screen: Does the patient meet any 2 criteria? No. Patient's initial sepsis screen is negative. Does the patient have a suspected source of infection? No. Patient's initial sepsis screen is negative. Risk Assessment: Do you want to hurt yourself or someone else? Patient reports no desire to harm self or others. Onset of symptoms was March 27, 2020. 01:16 Method Of Arrival: Ambulatory lp1 01:16 Acuity: BROOKE 3 lp1 Triage Assessment: 02:16 General: Appears in no apparent distress. comfortable, Behavior is calm, cooperative. mg2 Historical: - Allergies: 01:21 Amoxicillin; lp1 - Home Meds: 01:21 None [Active]; lp1 - PMHx: 01:21 Diabetes - IDDM; lp1 - PSHx: 01:21 None; lp1 - Immunization history:: Adult Immunizations up to date. - Social history:: Smoking status: Patient reports the use of cigarette tobacco products, smokes one pack cigarettes per day. Screenin:21 Abuse screen: Denies threats or abuse. Denies injuries from another. Nutritional lp1 screening: No deficits noted. Tuberculosis screening: No symptoms or risk factors identified. Fall Risk None identified. Assessment: 01:50 General: Appears in no apparent distress. comfortable. mg2 02:15 Pain: Complains of pain in left lower quadrant. Neuro: Level of Consciousness is awake, mg2 alert, obeys commands, Oriented to person, place, time, situation. Cardiovascular: Capillary refill < 3 seconds Patient's skin is warm and dry. Respiratory: Airway is patent Respiratory effort is even, unlabored, Respiratory pattern is regular, symmetrical. GI: Bowel sounds present X 4 quads. Reports lower abdominal pain, nausea. EENT: No signs and/or symptoms were reported regarding the EENT system. Derm: Skin is intact, is healthy with good turgor, Skin is pink, warm \T\ dry. normal. Musculoskeletal: Circulation, motion, and sensation intact. Capillary refill < 3 seconds. 02:49 Reassessment: blood sugar 473 mg/Dl checked ED provider aware. rr5 03:21 Reassessment: RT at bedside for ABG. mg2 03:35 Reassessment: ED provider advised for admission, patient refused and will sign AMA. rr5 03:35 Reassessment: Patient appears in no apparent distress at this time. Patient is alert, rr5 oriented x 3, equal unlabored respirations, skin warm/dry/pink. discharge instruction given and explained without complaints made, AMA form signed, repeat CBG 281 mg/Dl rechecked ED provider informed Patient states symptoms have improved. Vital Signs: 01:16 BP 139 / 94; Pulse 89; Resp 16; Temp 97.9(O); Pulse Ox 99% on R/A; Weight 68.04 kg (R); lp1 Height 6 ft. 0 in. (182.88 cm); Pain 3/10; 03:21 Pulse 86; Resp 18; Pulse Ox 100% on R/A; mg2 03:59 BP 135 / 75; Pulse 80; Resp 17; Pulse Ox 99% ; rr5 01:16 Body Mass Index 20.34 (68.04 kg, 182.88 cm) lp1 ED Course: 01:02 Patient arrived in ED. ag3 01:10 Mario Quinonez MD is Attending Physician. mh7 01:20 Triage completed. lp1 01:20 Arm band placed on. lp1 01:24 Kamari Hays RN is Primary Nurse. rr5 01:40 Inserted saline lock: 20 gauge in right antecubital area, using aseptic technique. mg2 Blood collected. 02:16 Patient has correct armband on for positive identification. mg2 02:16 No provider procedures requiring assistance completed. mg2 03:09 CT Abd/Pelvis - IV Contrast Only In Process Unspecified. EDMS 03:44 EKG done, by ED staff, reviewed by Mario Quinonez MD. rr5 Administered Medications: 01:46 Drug: Pepcid 20 mg Route: IVP; Site: right antecubital; mg2 03:09 Follow up: Response: No adverse reaction mg2 01:47 Drug: NS 0.9% 1000 ml Route: IV; Rate: 1000 ml; Site: right antecubital; mg2 03:10 Follow up: Response: No adverse reaction; IV Status: Completed infusion; IV Intake: mg2 1000ml 01:47 Drug: morphine 4 mg Route: IVP; Site: right antecubital; mg2 03:10 Follow up: Response: No adverse reaction mg2 01:47 Drug: Zofran (Ondansetron) 4 mg Route: IVP; Site: right antecubital; mg2 03:09 Follow up: Response: No adverse reaction mg2 03:09 Drug: Insulin Regular Human 10 units {Co-Signature: rr5 (Kamari Hays RN).} Route: mg2 IVP; Site: right antecubital; 03:57 Follow up: Response: No adverse reaction; Blood sugar is lowered rr5 03:10 Drug: NS 0.9% 1000 ml Route: IV; Rate: 1000 ml; Site: right antecubital; mg2 03:57 Follow up: Response: No adverse reaction; IV Status: Completed infusion; IV Intake: rr5 1000ml 03:42 CANCELLED (Duplicate Order): Cipro 500 mg PO once rr5 03:42 CANCELLED (Duplicate Order): Flagyl 500 mg PO once rr5 03:55 Drug: Cipro 500 mg Route: PO; rr5 03:57 Follow up: Response: Medication administered at discharge. rr5 03:55 Drug: Flagyl 500 mg Route: PO; rr5 03:57 Follow up: Response: Medication administered at discharge. rr5 Intake: 03:10 IV: 1000ml; Total: 1000ml. mg2 03:57 IV: 1000ml; Total: 2000ml. rr5 Outcome: 03:59 Patient left the ED. rr5 Signatures: Dispatcher [employer] EDMS Ml Bernardo RN RN lp1 Quan Romero, RN RN mg2 Yi Etienne 3 Kamari Hays RN RN rr5 Mario Quinonez MD MD 7 Kamari Hays RN rr5
[2020-03-27 04:04] VITALS: TEMP 97.9
[2020-03-27 04:07] VITALS: BP 135/75; O2SAT 99
[2020-03-27 05:50] LABS: Urine Blood NEGATIVE (NEG); Urine Glucose 2+ (NEG); Urine Protein NEGATIVE (NEG); Urine Specific Gravity 1.015 (1.005-1.030); Urine pH 5.5 (5.0-7.0)
--- NOTE | 2020-03-27 11:30 | RAD REPORT ---
EXAM DESCRIPTION: CT - Abdomen Pelvis W Contrast - 03/27/2020 7:24 am CLINICAL HISTORY: The patient is 30 years old and is Male; ABD PAIN TECHNIQUE: Axial computed tomography images of the abdomen and pelvis with intravenous contrast. S agittal and coronal reformatted images were created and reviewed. This CT exam was performed using one or more of the following dose reduction techniques: automated exposure control, adjustment of t he mA and/or kV according to patient size, and/or use of iterative reconstruction technique. COMPARISON: CT of the abdomen and pelvis October 19, 2019 FINDINGS: LUNG BASES: Unremarkable. No mass. No consolidation. ABDOMEN: LIVER: Unremarkable. No mass. GALLBLADDER AND BILE DUCTS: The gallbladder slightly contracted. PANCREAS: No ductal dilation. No mass. SPLEEN: Unremarkable. ADRENALS: Unremarkable. No mass. KIDNEYS AND URETERS: Unremarkable. The kidneys enhance symmetrically. No obstructing renal or ur eteral calculus is seen. No hydronephrosis or hydroureter. No perinephric fluid or stranding. STOMACH AND BOWEL: The stomach is not well distended. Multiple small bowel loops within the left upper quadrant are distended and filled with fecal material. There is associated mucosal thickening. The remainder the small bowel is normal in caliber. A moderate amount stool is present throughout co murray. There is no bowel obstruction. PELVIS: APPENDIX: The appendix is normal in caliber without surrounding inflammation. BLADDER: The bladder is significantly distended. REPRODUCTIVE: Unremarkable as visualized. ABDOMEN and PELVIS: INTRAPERITONEAL SPACE: Unremarkable. No free air. No significant fluid collection. BONES/JOINTS: No acute fracture. SOFT TISSUES: The soft tissues are normal. VASCULATURE: Unremarkable. No abdominal aortic aneurysm. LYMPH NODES: Unremarkable. No enlarged lymph nodes. IMPRESSION: 1. Findings suggest a focal enteritis involving several small bowel loops within left upper quadrant. 2. Significant distention of the bladder. Electronically signed by: Delaney Kee MD 03/27/2020 3:26 AM LINE MAINTAINER Due to temporary technical issues with the PACS/Fluency reporting system, reports are being signed by the in house radiologist without review as a courtesy to ensure prompt reporting. The interpreting r adiologist is fully responsible for the content of the report.
== END 2020-03-27 03:59 | disposition left against medical advice (07) ==
LOC: ER 00:59
DX: K52.9 Noninfective gastroenteritis and colitis, unspecified (principal); E11.10 Type 2 diabetes mellitus with ketoacidosis without coma; K85.90 Acute pancreatitis without necrosis or infection, unspecified; F17.210 Nicotine dependence, cigarettes, uncomplicated; Z79.4 Long term (current) use of insulin
CPT/HCPCS: 36415; 74177; 80048; 80076; 81003; 82010; 82805; 82947; 83690; 85025; 96361; 96374; 96375; 99284; J2405; J7030; Q9967

== ENCOUNTER 2020-05-31 01:08 | Observation (INO) | payer OTHER, SELFPAY ==
[2020-05-31 02:04] LABS: Absolute Lymphocytes (CBC) 1.5 K/uL (0.7-4.9); Basophils % 0.9 % (0-1.3); Hematocrit 35.4 % (39.6-49.0); Lymphocytes % 30.2 % (15.3-44.8); MPV 7.5 fL (7.6-11.3); RBC Red Blood Cell Count 3.77 M/uL (4.33-5.43)
[2020-05-31] MEDS ORDERED: MORPHINE 4 MG/ML SYR ONE (02:15)
[2020-05-31] MEDS ORDERED: FAMOTIDINE 20 MG/2 ML VIAL IV ONE (02:16)
[2020-05-31] MEDS ORDERED: NA CHLORIDE 0.9% 2,000 ML ONE (02:16)
[2020-05-31] MEDS ORDERED: ONDANSETRON 4 MG/2 ML VIAL ONE (02:16)
[2020-05-31 04:02] LABS: ALT/SGPT 27 U/L (12-78); AST/SGOT 11 U/L (15-37); Albumin 3.3 g/dL (3.4-5.0); Alkaline Phosphatase 71 U/L (45-117); BUN Blood Urea Nitrogen 10 mg/dL (7-18); Bicarbonate 19 mmol/L (21-32); Bilirubin Direct < 0.1 mg/dL (0-0.2); Bilirubin Total 0.2 mg/dL (0.2-1.0); Glucose Level 392 mg/dL (74-106); Lipase 331 U/L (73-393); Potassium 3.8 mmol/L (3.5-5.1); Protein, Total 5.5 g/dL (6.4-8.2); Sodium Level 137 mmol/L (136-145)
[2020-05-31] MEDS ORDERED: NA CHLORIDE 0.9% 1,000 ML ONE ×3 (04:58→11:02)
--- NOTE | 2020-05-31 05:09 | ER ---
Nurse's Notes [facility] Name: Chinmay Mitchell Age: 30 yrs Sex: Male : 1990 Arrival Date: 05/31/2020 Time: 01:11 Bed 6 Private MD: Diagnosis: Abdominal tenderness-enteritis;Hyperlipidemia, unspecified-hypertriglyceridemia;Vomiting;Type 1 diabetes mellitus Presentation: 05/31 01:34 Chief complaint: Patient states: abd pain that started yesterday evening. Pt C/O left side abdominal pain and diarrhea. Coronavirus screen: Client denies travel out of the [place] in the last 14 days. At this time, the client does not indicate any symptoms associated with coronavirus-19. Ebola Screen: Patient negative for fever greater than or equal to 101.5 degrees Fahrenheit, and additional compatible Ebola Virus Disease symptoms Patient denies exposure to infectious person. Risk Assessment: Do you want to hurt yourself or someone else? Patient reports no desire to harm self or others. Onset of symptoms was May 31, 2020. :34 Method Of Arrival: Ambulatory 01:34 Acuity: BROOKE 3 01:39 Initial Sepsis Screen: Does the patient meet any 2 criteria? No. Patient's initial sepsis screen is negative. Does the patient have a suspected source of infection? Yes: Acute abdominal pain. Historical: - Allergies: :37 Amoxicillin; - Home Meds: 01:37 Insulin: Regular Sub-Q [Active]; - PMHx: 01:37 Diabetes - IDDM; - PSHx: 01:37 None; - Immunization history:: Adult Immunizations unknown. - Social history:: Smoking status: Patient reports the use of cigarette tobacco products, smokes one-half pack cigarettes per day. - Family history:: not pertinent. Screenin:37 Abuse screen: Denies threats or abuse. Denies injuries from another. Nutritional screening: No deficits noted. Tuberculosis screening: No symptoms or risk factors identified. Fall Risk None identified. Assessment: 01:37 General: Appears in no apparent distress. Behavior is calm, cooperative, appropriate for age. Pain: Complains of pain in abdomen Quality of pain is described as burning, Pain began 4 hours ago. Neuro: Level of Consciousness is awake, alert, obeys commands, Oriented to person, place, time, situation, Appropriate for age. Cardiovascular: Capillary refill < 3 seconds. Respiratory: Airway is patent Respiratory effort is even, unlabored, Respiratory pattern is regular, symmetrical. GI: Abdomen is flat, non-distended, Abd is soft Abd is non tender Reports lower abdominal pain, diarrhea. : No signs and/or symptoms were reported regarding the genitourinary system. EENT: No signs and/or symptoms were reported regarding the EENT system. Derm: Skin is intact, is healthy with good turgor, Skin is pink, warm \T\ dry. normal. Musculoskeletal: Circulation, motion, and sensation intact. 03:41 Reassessment: Patient appears in no apparent distress at this time. Patient and/or mg2 family updated on plan of care and expected duration. Pain level reassessed. Patient is alert, oriented x 3, equal unlabored respirations, skin warm/dry/pink. 05:10 Reassessment: Patient appears in no apparent distress at this time. Patient and/or wh family updated on plan of care and expected duration. Pain level reassessed. Patient is alert, oriented x 3, equal unlabored respirations, skin warm/dry/pink. Vital Signs: 01:39 BP 138 / 84; Pulse 80; Resp 18; Temp 98.2; Pulse Ox 99% ; Weight 68.04 kg; Height 5 ft. 11 in. (180.34 cm); Pain 8/10; 03:41 BP 138 / 94; Pulse 94; Resp 18; Pulse Ox 98% on R/A; mg2 05:08 BP 131 / 86; Pulse 101; Resp 18; Pulse Ox 100% on R/A; mg2 01:39 Body Mass Index 20.92 (68.04 kg, 180.34 cm) ED Course: 01:11 Patient arrived in ED. am4 01:27 Larry Mejia, TRELL is Primary Nurse. 01:35 Triage completed. 01:36 Dorian Mckenzie MD is Attending Physician. [facility] [place] 01:37 Arm band placed on right wrist. 01:40 Patient has correct armband on for positive identification. Placed in gown. Bed in low wh position. Call light in reach. Side rails up X 1. Pulse ox on. NIBP on. 01:49 No provider procedures requiring assistance completed. Inserted saline lock: 20 gauge mg2 in right antecubital area, using aseptic technique. Blood collected. 04:40 CT Abd/Pelvis - IV Contrast Only In Process Unspecified. EDMS 05:07 Zahra Spencer MD is Hospitalizing Provider. [facility] [place] 05:20 COVID swab sent to lab. Patient admitted, IV remains in place. mg2 07:08 Primary Nurse role handed off by Larry Mejia, TRELL bd 08:19 Jack Wright, TRELL is Primary Nurse. jl7 10:35 Lipase Sent. jl7 10:35 Hepatic Function Sent. jl7 10:35 CBC with Diff Sent. jl7 10:35 Basic Metabolic Panel Sent. jl7 Administered Medications: 02:03 Drug: Pepcid 20 mg Route: IVP; Site: right antecubital; mg2 04:38 Follow up: Response: No adverse reaction mg2 02:03 Drug: Zofran (Ondansetron) 4 mg Route: IVP; Site: right antecubital; mg2 04:38 Follow up: Response: No adverse reaction mg2 02:03 Drug: NS 0.9% 1000 ml Route: IV; Rate: 1 bolus; Site: right antecubital; mg2 04:38 Follow up: Response: No adverse reaction; IV Status: Completed infusion; IV Intake: mg2 1000ml 02:04 Drug: morphine 4 mg Route: IVP; Site: right antecubital; mg2 04:38 Follow up: Response: No adverse reaction mg2 02:45 Drug: NS 0.9% 1000 ml Route: IV; Rate: 1 bolus; Site: right antecubital; wh 04:38 Follow up: Response: No adverse reaction; IV Status: Completed infusion; IV Intake: mg2 1000ml 04:38 Drug: NS 0.9% 1000 ml Route: IV; Rate: 1 bolus; Site: right antecubital; mg2 07:00 Follow up: Response: No adverse reaction; IV Status: Completed infusion; IV Intake: jl7 1000ml 05:08 Drug: Insulin Regular Human 8 units {Co-Signature: wh (Larry Mejia RN).} Route: IVP; mg2 Site: left antecubital; 07:00 Follow up: Response: No adverse reaction; Blood sugar is lowered jl7 Intake: 04:38 IV: 1000ml; Total: 1000ml. mg2 04:38 IV: 1000ml; Total: 2000ml. mg2 07:00 IV: 1000ml; Total: 3000ml. jl7 Outcome: 05:09 Decision to Hospitalize by Provider. carlos 10:34 Admitted to ER Hold. Please see [facility] for further documentation. jlErma 10:34 Condition: stable 10:34 Discharge instructions given to patient, Instructed on the need for admit, Demonstrated understanding of instructions. 12:54 Patient left the ED. jl7 Signatures: Dispatcher [employer] EDMS Marii Brown Corey, MD MD cha Leal, Jahala, RN RN jl7 Habalo, Winsy, RN RN Quan Romero RN RN [facility] Johanna Paiz RN
--- NOTE | 2020-05-31 05:09 | EDPHYS ---
Physician Documentation [facility] Name: Chinmay Mitchell Age: 30 yrs Sex: Male : 1990 Arrival Date: 05/31/2020 Time: 01:11 Bed 6 Private MD: MAGAN Physician Dorian Mckenzie HPI: 05/31 01:55 This 30 yrs old Male presents to ER via Ambulatory with complaints of STOMACH carlos INFLAMMATION. 01:55 The patient presents with abdominal pain in the epigastric area, in the upper abdomen. carlos Onset: The symptoms/episode began/occurred 1 day(s) ago. The symptoms do not radiate. Associated signs and symptoms: Pertinent positives: anorexia. The symptoms are described as constant, crampy. Modifying factors: The symptoms are alleviated by nothing, the symptoms are aggravated by nothing. Severity of pain: At its worst the pain was mild in the emergency department the pain is unchanged. The patient has experienced similar episodes in the past, a few times, today's symptoms are similar, to previous DX PANCREATITIS. Historical: - Allergies: 01:37 Amoxicillin; - Home Meds: 01:37 Insulin: Regular Sub-Q [Active]; - PMHx: 01:37 Diabetes - IDDM; - PSHx: 01:37 None; - Immunization history:: Adult Immunizations unknown. - Social history:: Smoking status: Patient reports the use of cigarette tobacco products, smokes one-half pack cigarettes per day. - Family history:: not pertinent. ROS: 01:55 Constitutional: Negative for fever, chills, and weight loss, Eyes: Negative for injury, carlos pain, redness, and discharge, ENT: Negative for injury, pain, and discharge, Neck: Negative for injury, pain, and swelling, Cardiovascular: Negative for chest pain, palpitations, and edema, Respiratory: Negative for shortness of breath, cough, wheezing, and pleuritic chest pain, Back: Negative for injury and pain, : Negative for injury, bleeding, discharge, and swelling, MS/Extremity: Negative for injury and deformity, Skin: Negative for injury, rash, and discoloration, Neuro: Negative for headache, weakness, numbness, tingling, and seizure, Psych: Negative for depression, anxiety, suicide ideation, homicidal ideation, and hallucinations, Allergy/Immunology: Negative for hives, rash, and allergies, Endocrine: Negative for neck swelling, polydipsia, polyuria, polyphagia, and marked weight changes, Hematologic/Lymphatic: Negative for swollen nodes, abnormal bleeding, and unusual bruising. 01:55 Abdomen/GI: Positive for abdominal pain, nausea and vomiting, abdominal cramps, of the epigastric area, left upper quadrant and left lower quadrant. Exam: 01:55 Constitutional: This is a well developed, well nourished patient who is awake, alert, carlos and in no acute distress. Head/Face: Normocephalic, atraumatic. Eyes: Pupils equal round and reactive to light, extra-ocular motions intact. Lids and lashes normal. Conjunctiva and sclera are non-icteric and not injected. Cornea within normal limits. Periorbital areas with no swelling, redness, or edema. ENT: Nares patent. No nasal discharge, no septal abnormalities noted. Tympanic membranes are normal and external auditory canals are clear. Oropharynx with no redness, swelling, or masses, exudates, or evidence of obstruction, uvula midline. Mucous membranes moist. Neck: Trachea midline, no thyromegaly or masses palpated, and no cervical lymphadenopathy. Supple, full range of motion without nuchal rigidity, or vertebral point tenderness. No Meningismus. Chest/axilla: Normal chest wall appearance and motion. Nontender with no deformity. No lesions are appreciated. Cardiovascular: Regular rate and rhythm with a normal S1 and S2. No gallops, murmurs, or rubs. Normal PMI, no JVD. No pulse deficits. Respiratory: Lungs have equal breath sounds bilaterally, clear to auscultation and percussion. No rales, rhonchi or wheezes noted. No increased work of breathing, no retractions or nasal flaring. Back: No spinal tenderness. No costovertebral tenderness. Full range of motion. Male : Normal genitalia with no discharge or lesions. Skin: Warm, dry with normal turgor. Normal color with no rashes, no lesions, and no evidence of cellulitis. MS/ Extremity: Pulses equal, no cyanosis. Neurovascular intact. Full, normal range of motion. Neuro: Awake and alert, GCS 15, oriented to person, place, time, and situation. Cranial nerves II-XII grossly intact. Motor strength 5/5 in all extremities. Sensory grossly intact. Cerebellar exam normal. Normal gait. Psych: Awake, alert, with orientation to person, place and time. Behavior, mood, and affect are within normal limits. 01:55 Abdomen/GI: Inspection: abdomen appears normal, Bowel sounds: normal, Palpation: mild abdominal tenderness, in the left upper quadrant and left lower quadrant, Liver: no appreciated palpable abnormalities, Hernia: not appreciated. Vital Signs: 01:39 BP 138 / 84; Pulse 80; Resp 18; Temp 98.2; Pulse Ox 99% ; Weight 68.04 kg; Height 5 ft. wh 11 in. (180.34 cm); Pain 8/10; 03:41 BP 138 / 94; Pulse 94; Resp 18; Pulse Ox 98% on R/A; mg2 05:08 BP 131 / 86; Pulse 101; Resp 18; Pulse Ox 100% on R/A; mg2 01:39 Body Mass Index 20.92 (68.04 kg, 180.34 cm) MDM: 01:37 Patient medically screened. carlos 01:58 Differential diagnosis: cholecystitis, Cholelithiasis, diverticulitis, gastritis, carlos gastroesophageal reflux disease, non-specific abd pain, pancreatitis, Peptic Ulcer Disease, Perf. Duodenal Ulcer, Pyelonephritis, Ureterolithiasis, urinary tract infection. Data reviewed: vital signs, nurses notes, lab test result(s), radiologic studies, CT scan. Data interpreted: compliance monitor: rate is 80 beats/min, rhythm is regular. Counseling: I had a detailed discussion with the patient and/or guardian regarding: the historical points, exam findings, and any diagnostic results supporting the discharge/admit diagnosis, lab results, radiology results. 05/31 01:35 Order name: Basic Metabolic Panel mg2 05/31 01:35 Order name: CBC with Diff mg2 05/31 01:35 Order name: Hepatic Function mg2 05/31 01:35 Order name: Lipase mg2 05/31 01:37 Order name: Basic Metabolic Panel; Complete Time: 04:33 EDMS 05/31 01:37 Order name: Liver (Hepatic) Function; Complete Time: 04:33 EDMS 05/31 01:37 Order name: Lipase; Complete Time: 04:33 EDMS 05/31 01:37 Order name: CBC with Automated Diff; Complete Time: 03:02 EDMS 05/31 04:10 Order name: Urine Dipstick--Ancillary (enter results) mw2 05/31 06:17 Order name: SARS-COV-2 RT PCR EDNE 05/31 06:48 Order name: Glucose, Ancillary Testing EDNE 05/31 09:12 Order name: CBC with Automated Diff EDNE 05/31 09:12 Order name: CBC with Automated Diff EDNE 05/31 01:35 Order name: IV Saline Lock; Complete Time: 01:49 mg2 05/31 01:54 Order name: CT Abd/Pelvis - IV Contrast Only [facility] 05/31 09:12 Order name: Clear Liquid EDNE 05/31 09:12 Order name: Comprehensive Metabolic Panel EDNE 05/31 09:12 Order name: Comprehensive Metabolic Panel EDNE 05/31 09:12 Order name: Lipase EDNE 05/31 09:12 Order name: Lipase EDNE 05/31 09:12 Order name: Lipid Profile EDNE 05/31 09:12 Order name: Lipid Profile EDNE 05/31 01:35 Order name: Labs collected and sent; Complete Time: 01:49 [facility] 05/31 01:54 Order name: Urine Dipstick-Ancillary (obtain specimen); Complete Time: 04:01 [facility] Administered Medications: 02:03 Drug: Pepcid 20 mg Route: IVP; Site: right antecubital; mg2 04:38 Follow up: Response: No adverse reaction mg2 02:03 Drug: Zofran (Ondansetron) 4 mg Route: IVP; Site: right antecubital; mg2 04:38 Follow up: Response: No adverse reaction mg2 02:03 Drug: NS 0.9% 1000 ml Route: IV; Rate: 1 bolus; Site: right antecubital; mg2 04:38 Follow up: Response: No adverse reaction; IV Status: Completed infusion; IV Intake: mg2 1000ml 02:04 Drug: morphine 4 mg Route: IVP; Site: right antecubital; mg2 04:38 Follow up: Response: No adverse reaction mg2 02:45 Drug: NS 0.9% 1000 ml Route: IV; Rate: 1 bolus; Site: right antecubital; wh 04:38 Follow up: Response: No adverse reaction; IV Status: Completed infusion; IV Intake: mg2 1000ml 04:38 Drug: NS 0.9% 1000 ml Route: IV; Rate: 1 bolus; Site: right antecubital; mg2 07:00 Follow up: Response: No adverse reaction; IV Status: Completed infusion; IV Intake: jl7 1000ml 05:08 Drug: Insulin Regular Human 8 units {Co-Signature: bear (Larry Mejia RN).} Route: IVP; mg2 Site: left antecubital; 07:00 Follow up: Response: No adverse reaction; Blood sugar is lowered jl7 Disposition: 05/31/20 05:09 Hospitalization ordered by Zahra Spencer for Observation. Preliminary diagnosis are Abdominal tenderness - enteritis, Hyperlipidemia, unspecified - hypertriglyceridemia, Vomiting, Type 1 diabetes mellitus. - Bed requested for [facility] ER HOLD. - Status is Observation. jl7 - Condition is Fair. - Problem is new. - Symptoms have improved. Signatures: Dispatcher [employer] [facility] Dorian Mckenzie MD MD cha Smirch, Shelby, RN RN Jack Wright RN RN Larry Benjamin RN RN Quan Romero RN RN [facility] Larry Mejia RN Corrections: (The following items were deleted from the chart) 05:36 05:10 CORONAVIRUS+MR.LAB.BRZ ordered. [facility] EDNE 08:21 05:09 Hospitalization Ordered by Zahra Spencer MD for Observation. Preliminary ss diagnosis is Abdominal tenderness - enteritis; Hyperlipidemia, unspecified - hypertriglyceridemia; Vomiting; Type 1 diabetes mellitus. Bed requested for Telemetry/MedSurg (observation). Status is Observation. Condition is Fair. Problem is new. Symptoms have improved. [facility] 12:54 08:21 05/31/2020 05:09 Hospitalization Ordered by Zahra Spencer MD for Observation. jl7 Preliminary diagnosis is Abdominal tenderness - enteritis; Hyperlipidemia, unspecified - hypertriglyceridemia; Vomiting; Type 1 diabetes mellitus. Bed requested for [facility] ER HOLD. Status is Observation. Condition is Fair. Problem is new. Symptoms have improved. ss
[2020-05-31 05:10] LABS: Urine Blood NEGATIVE (NEG); Urine Glucose 2+ (NEG); Urine Protein NEGATIVE (NEG); Urine Specific Gravity 1.015 (1.005-1.030); Urine pH 5.5 (5.0-7.0)
[2020-05-31] MEDS ORDERED: INSULIN -REGULAR HUMAN 50 UNIT/0.5 ML ML ONE (05:22)
[2020-05-31] MEDS ORDERED: ONDANSETRON 4 MG/2 ML VIAL IV PRN (09:11)
[2020-05-31] MEDS ORDERED: ACETAMINOPHEN 500 MG TAB PO PRN (09:11)
[2020-05-31] MEDS ORDERED: MORPHINE 2 MG/ML SYR IV PRN (09:11)
[2020-05-31] MEDS ORDERED: NA CHLORIDE 0.9% 1,000 ML IV SCH ×2 (09:11)
--- NOTE | 2020-05-31 11:31 | RAD REPORT ---
EXAM DESCRIPTION: CT - Abdomen Pelvis W Contrast - 05/31/2020 7:16 am CLINICAL HISTORY: The patient is 30 years old and is Male; ABD PAIN TECHNIQUE: Axial computed tomography images of the abdomen and pelvis with intravenous contrast. S agittal and coronal reformatted images were created and reviewed. This CT exam was performed using one or more of the following dose reduction techniques: automated exposure control, adjustment of t he mA and/or kV according to patient size, and/or use of iterative reconstruction technique. COMPARISON: CT abdomen pelvis 03/27/2020. FINDINGS: Lung bases: Unremarkable. No mass. No consolidation. ABDOMEN: Liver: Unremarkable. No mass. Gallbladder and bile ducts: Unremarkable. No calcified stones. No ductal dilation. Pancreas: Unremarkable. No mass. No ductal dilation. Spleen: Unremarkable. No splenomegaly. Adrenals: Unremarkable. No mass. Kidneys and ureters: Unremarkable. No solid mass. No hydronephrosis. Stomach and bowel: There is mild distention and wall thickening involving the small bowel. PELVIS: Appendix: No findings to suggest acute appendicitis. Bladder: Significant distention the bladder, similar to prior. Reproductive: Unremarkable as visualized. ABDOMEN and PELVIS: Intraperitoneal space: Unremarkable. No free air. No significant fluid collection. Bones/joints: No acute fracture. No dislocation. Soft tissues: Unremarkable. Vasculature: Unremarkable. No abdominal aortic aneurysm. Lymph nodes: Unremarkable. No enlarged lymph nodes. IMPRESSION: 1. There is mild distention and wall thickening involving the small bowel. Findings are suggestive of enteritis, similar to prior. 2. Significant distention the bladder, similar to prior. Electronically signed by: Claus Bauer MD 05/31/2020 4:55 AM CDT Due to temporary technical issues with the PACS/Fluency reporting system, reports are being signed by the in house radiologist without review as a courtesy to ensure prompt reporting. The interpreting r adiologist is fully responsible for the content of the report.
[2020-05-31 12:04] VITALS: BP 110/70; TEMP 98
--- NOTE | 2020-05-31 12:04 | P.SSS ---
Patient History Date of Service: 05/31/20 Reason for admission: ABD pain/N/V History of Present Illness: Patient is a 30-year-old gentleman came hospital with abdominal pain along with nausea and vomiting. Patient states his symptoms were at home and he is feeling better. Will admit him to the hospital for observation. Patient has a history of chronic issues with nausea and vomiting. He is a diabetic type 1. He denies having DKA episodes. He is not severely acidotic. He will need admission for IV fluids and monitoring diet. Allergies amoxicillin Allergy (Verified 10/19/19 02:45) Unknown Home Medications: Insulin Detemir [Levemir Flextouch] 30 unit SQ BID 10/19/19 Ondansetron [Zofran] 4 mg PO Q6H PRN #20 tab 05/31/20 - Past Medical/Surgical History Diabetic: Yes -: Type 1 diabetes mellitus -: None Psychosocial/ Personal History: , lives at home with - Family History Father -: Diabetes - Social History Alcohol use: No CD- Drugs: No Caffeine use: Yes Review of Systems 10-point ROS is otherwise unremarkable Physical Examination - Vital Signs Temperature: 98 F Blood Pressure: 110/70 Pulse: 80 Respirations: 18 Pulse Ox (%): 99 - Physical Exam General: Alert, In no apparent distress, Oriented x3 HEENT: Atraumatic, PERRLA, Mucous membr. moist/pink, EOMI, Sclerae nonicteric Neck: Supple, 2+ carotid pulse no bruit, No LAD, Without JVD or thyroid abnormality Respiratory: Clear to auscultation bilaterally, Normal air movement Cardiovascular: Regular rate/rhythm, Normal S1 S2 Gastrointestinal: Normal bowel sounds, Soft and benign, Non-distended, No tenderness Musculoskeletal: No clubbing, No swelling, No tenderness Integumentary: No rashes Neurological: Normal gait, Normal speech, Normal strength at 5/5 x4 extr, Normal tone, Sensation intact, Cranial nerves 3-12 intact, Normal affect Lymphatics: No axilla or inguinal lymphadenopathy - Studies Laboratory Data (last 24 hrs) 05/31/20 02:33: Sodium 137, Potassium 3.8, BUN 10, Creatinine 0.46 L, Glucose 392 H, Total Bilirubin 0.2, AST 11 L, ALT 27, Alkaline Phosphatase 71, Lipase 331 05/31/20 01:40: WBC 5.00, Hgb 13.0 L, Hct 35.4 L, Plt Count 310 - Diagnosis (Problem(s)) (1) Enteritis Status: Acute Treatment Summary: Patient has done well during hospital stay. Patient is tolerating diet. Patient was hydrated with IV fluids. He clinically feels much better. At this time patient stable for discharge home. - Disposition Disposition: ROUTINE DISCHARGE Condition: GOOD Patient Discharge Instructions: OK TO DC IV AND DC HOME. FOLLOW-UP WITH PCP IN 1-2 WEEKS. CALL ME AT [phone] IF ANY QUESTIONS REGARDING HOSPITAL STAY. RETURN TO THE ER IF SYMPTOMS WORSENS. FOLLOW-UP WITH GI IN 1-2 WEEKS Diet: Regular Activity: Ad jaun Critical Care: No Time Spent Managing Pts Care (In Minutes): 35
[2020-05-31] MEDS ORDERED: GLUCAGON 1 MG/VIAL IM PRN (12:06)
[2020-05-31] MEDS ORDERED: D50W 25 GM/50 ML SYRINGE IV PRN (12:06)
[2020-05-31] MEDS ORDERED: INSULIN GLARGINE 100 UNITS/ML SQ ONE (12:07)
[2020-05-31 13:07] VITALS: O2SAT 100
== END 2020-05-31 12:59 | disposition home or self-care (01) ==
LOC: ER 01:08 → ERHOLD 09:11
PROVIDERS: ADMIT Hospitalist; ATTEND Hospitalist
DX: K52.9 Noninfective gastroenteritis and colitis, unspecified (principal); E10.9 Type 1 diabetes mellitus without complications; Z79.4 Long term (current) use of insulin; E78.5 Hyperlipidemia, unspecified; E78.1 Pure hyperglyceridemia; F17.210 Nicotine dependence, cigarettes, uncomplicated; Z88.0 Allergy status to penicillin; Z20.822 Contact with and (suspected) exposure to COVID-19; Z83.3 Family history of diabetes mellitus
CPT/HCPCS: 36415; 74177; 80048; 80076; 81003; 82947; 83690; 85025; 99285; G0378; J2405; J7030; Q9967; U0003

== ENCOUNTER 2020-06-19 22:26 | Emergency (ER) | payer OTHER, SELFPAY ==
[2020-06-19 23:24] LABS: Arterial Blood Carboxyhemoglob 6.5 % (0-1.5); Blood Gas Oxyhemoglobin 89.3 % (94-97); Blood O2 Saturation 97.2 % (92-98.5)
[2020-06-19] MEDS ORDERED: NA CHLORIDE 0.9% 3,000 ML ONE (23:36)
[2020-06-19] MEDS ORDERED: INSULIN -REGULAR HUMAN 50 UNIT/0.5 ML ML ONE (23:36)
[2020-06-19 23:47] LABS: Urine Blood Negative (Negative); Urine Glucose 2+ (Negative); Urine Protein Negative (Negative)
[2020-06-20 00:02] LABS: Absolute Lymphocytes (CBC) 1.2 K/uL (0.7-4.9); Basophils % 0.8 % (0-1.3); Hematocrit 37.4 % (39.6-49.0); Lymphocytes % 26.3 % (15.3-44.8); MPV 7.1 fL (7.6-11.3); RBC Red Blood Cell Count 3.85 M/uL (4.33-5.43)
[2020-06-20 00:13] LABS: ALT/SGPT 31 U/L (12-78); AST/SGOT 10 U/L (15-37); Albumin 3.9 g/dL (3.4-5.0); Alkaline Phosphatase 93 U/L (45-117); BUN Blood Urea Nitrogen 10 mg/dL (7-18); Bicarbonate 27 mmol/L (21-32); Bilirubin Total 0.2 mg/dL (0.2-1.0); Glucose Level 561 mg/dL (74-106); Potassium 3.2 mmol/L (3.5-5.1); Protein, Total 6.2 g/dL (6.4-8.2); Sodium Level 131 mmol/L (136-145)
--- NOTE | 2020-06-20 01:42 | ER ---
Nurse's Notes [facility] Name: Chinmay Mitchell Age: 30 yrs Sex: Male : 1990 Arrival Date: 06/19/2020 Time: 22:31 Bed 2 Private MD: Diagnosis: Hyperglycemia, unspecified Presentation: 06/19 22:52 Chief complaint: Patient states: I am having headache, bodyache started these morning I rr5 just want to be tested for COVID. denies fever and cough. Coronavirus screen: Client denies travel out of the [place] in the last 14 days. headache, muscle pain, Client presents with at least one sign or symptom that may indicate coronavirus-19. Standard/surgical mask placed on the client. Provider contacted for isolation considerations. Ebola Screen: Patient negative for fever greater than or equal to 101.5 degrees Fahrenheit, and additional compatible Ebola Virus Disease symptoms Patient denies exposure to infectious person. Patient denies travel to an Ebola-affected area in the 21 days before illness onset. Initial Sepsis Screen: Does the patient meet any 2 criteria? No. Patient's initial sepsis screen is negative. Does the patient have a suspected source of infection? No. Patient's initial sepsis screen is negative. Risk Assessment: Do you want to hurt yourself or someone else? Patient reports no desire to harm self or others. Onset of symptoms was June 19, 2020. 22:52 Method Of Arrival: Ambulatory rr5 22:52 Acuity: BROOKE 4 rr5 23:15 Acuity: BROOKE 2 rr5 Historical: - Allergies: 22:54 Amoxicillin; rr5 - Home Meds: 22:54 Insulin: Regular Sub-Q [Active]; rr5 - PMHx: 22:54 Diabetes - IDDM; rr5 - PSHx: 22:54 None; rr5 - Immunization history:: Adult Immunizations up to date. - Social history:: Smoking status: Patient reports the use of cigarette tobacco products, smokes one pack cigarettes per day. Patient/guardian denies using alcohol, street drugs. Screenin:00 Abuse screen: Denies threats or abuse. Denies injuries from another. Nutritional rr5 screening: No deficits noted. Tuberculosis screening: No symptoms or risk factors identified. Fall Risk IV access (20 points). Total Villarreal Fall Scale indicates No Risk (0-24 pts). Assessment: 23:10 General: Appears in no apparent distress. comfortable, Behavior is calm, cooperative, rr5 appropriate for age. Pain: Complains of pain in head, and body Pain currently is 5 out of 10 on a pain scale. Quality of pain is described as aching, Pain began gradually, Is intermittent. Neuro: Level of Consciousness is awake, alert, obeys commands, Oriented to person, place, time, Reports headache. Cardiovascular: Capillary refill < 3 seconds Patient's skin is warm and dry. Respiratory: Airway is patent Respiratory effort is even, unlabored, Respiratory pattern is regular, symmetrical. GI: No signs and/or symptoms were reported involving the gastrointestinal system. : No signs and/or symptoms were reported regarding the genitourinary system. EENT: No signs and/or symptoms were reported regarding the EENT system. Derm: Skin is intact, is healthy with good turgor, Skin temperature is warm. Musculoskeletal: Capillary refill < 3 seconds, Reports pain in body. 23:25 Reassessment: finger stick result HIGH ED provider aware, blood glucose test per rr5 protocol included to BMP test that the provider ordered. Vital Signs: 22:52 BP 139 / 77; Pulse 86; Resp 16; Temp 98.1; Pulse Ox 99% ; Weight 68.04 kg; Height 5 ft. rr5 11 in. (180.34 cm); Pain 5/10; 23:47 BP 128 / 85; Pulse 80; Resp 17; Pulse Ox 98% ; rr5 06/20 00:15 BP 128 / 91; Pulse 101; Resp 18; Temp 98; Pulse Ox 100% on R/A; mg2 06/19 22:52 Body Mass Index 20.92 (68.04 kg, 180.34 cm) rr5 ED Course: 06/19 22:31 Patient arrived in ED. ag3 22:48 Kamari Hays, TRELL is Primary Nurse. rr5 22:54 Triage completed. rr5 22:55 Arm band placed on right wrist. rr5 22:56 Chu Workman PA is PHCP. brendam 22:56 Zahra Smith MD is Attending Physician. jmm 23:10 Patient has correct armband on for positive identification. Bed in low position. Call rr5 light in reach. shelter monitor on. Pulse ox on. NIBP on. 23:20 COVID swab sent to lab. rr5 23:40 Inserted saline lock: 18 gauge in right forearm, using aseptic technique. Blood rr5 collected. 23:40 First set of blood cultures drawn by me. rr5 06/20 01:50 No provider procedures requiring assistance completed. IV discontinued, intact, mg2 bleeding controlled, No redness/swelling at site. Pressure dressing applied. Administered Medications: 06/19 23:40 Drug: NS 0.9% 3000 ml Route: IV; Rate: 1 bolus; Site: right forearm; rr5 06/20 00:52 Follow up: Response: No adverse reaction; IV Status: Completed infusion; IV Intake: rr5 3000ml 06/19 23:40 Drug: Insulin Regular Human 10 units {Co-Signature: mg2 (Quan Romero RN).} Route: rr5 IVP; Site: right forearm; 06/20 00:52 Follow up: Response: No adverse reaction; Blood sugar is lowered rr5 Intake: 00:52 IV: 3000ml; Total: 3000ml. rr5 Outcome: 01:42 Discharge ordered by . [email or web address] 01:49 Discharged to home ambulatory. mg2 01:49 Condition: stable 01:49 Discharge instructions given to patient, Instructed on discharge instructions, follow up and referral plans. Demonstrated understanding of instructions, follow-up care. 01:51 Patient left the ED. mg2 Signatures: Chu Workman PA PA jmm Alzahri, Mohammad, MD MD ma2 Gardose, Michele, RN RN mg2 Yi Etienne Raymond, RN RN rr5 Quan Romero RN mg2
--- NOTE | 2020-06-20 01:42 | EDPHYS ---
Physician Documentation [facility] Name: Chinmay Mitchell Age: 30 yrs Sex: Male : 1990 Arrival Date: 06/19/2020 Time: 22:31 Bed 2 Private MD: ED Physician Zahra Smith HPI: 06/19 23:06 This 30 yrs old Male presents to ER via Ambulatory with complaints of jmm Headache, BODY ACHES. 23:06 Onset: The symptoms/episode began/occurred gradually, this morning. Associated signs jmm and symptoms:. The symptoms are alleviated by nothing. the symptoms are aggravated by nothing. This is a 30 year old male with a history of IDDM that presents to the ED with complaints of headache, diarrhea, body aches beginning this morning. Patient is concerned he may have covid 19. Denies abdominal pain, patient states having a mild cough, denies shortness of breath. Denies neck stiffness. Historical: - Allergies: 22:54 Amoxicillin; rr5 - Home Meds: 22:54 Insulin: Regular Sub-Q [Active]; rr5 - PMHx: 22:54 Diabetes - IDDM; rr5 - PSHx: 22:54 None; rr5 - Immunization history:: Adult Immunizations up to date. - Social history:: Smoking status: Patient reports the use of cigarette tobacco products, smokes one pack cigarettes per day. Patient/guardian denies using alcohol, street drugs. ROS: 23:06 Constitutional: Positive for body aches. jmm 23:06 Respiratory: Positive for cough. 23:06 Respiratory: Positive for 23:06 Abdomen/GI: Positive for diarrhea, Negative for abdominal pain, nausea and vomiting. 23:06 All other systems are negative. Exam: 23:06 Constitutional: This is a well developed, well nourished patient who is awake, alert, jmm and in no acute distress. Head/Face: atraumatic. Eyes: EOMI, no conjunctival erythema appreciated ENT: Moist Mucus Membranes Neck: Trachea midline, Supple Chest/axilla: Normal chest wall appearance and motion. Cardiovascular: Regular rate and rhythm. No edema appreciated Respiratory: Normal respirations, no respiratory distress appreciated Abdomen/GI: Non distended, soft Back: Normal ROM Skin: General appearance color normal MS/ Extremity: Moves all extremities, no obvious deformities appreciated, no edema noted to the lower extremities Neuro: Awake and alert, normal gait Psych: Behavior is normal, Mood is normal, Patient is cooperative and pleasant Vital Signs: 22:52 BP 139 / 77; Pulse 86; Resp 16; Temp 98.1; Pulse Ox 99% ; Weight 68.04 kg; Height 5 ft. rr5 11 in. (180.34 cm); Pain 5/10; 23:47 BP 128 / 85; Pulse 80; Resp 17; Pulse Ox 98% ; rr5 06/20 00:15 BP 128 / 91; Pulse 101; Resp 18; Temp 98; Pulse Ox 100% on R/A; mg2 06/19 22:52 Body Mass Index 20.92 (68.04 kg, 180.34 cm) rr5 MDM: 06/19 22:59 Patient medically screened. [facility] 06/20 00:47 Transition of care: After a detail discussion of the patient's case, care is [facility] transferred to Zahra Smith MD. 01:41 Differential diagnosis: hypoglycemia, hyponatremia, sinusitis, uremia. Data reviewed: ma2 vital signs, nurses notes. Counseling: I had a detailed discussion with the patient and/or guardian regarding: the historical points, exam findings, and any diagnostic results supporting the discharge/admit diagnosis, the presence of at least one elevated blood pressure reading (>120/80) during this emergency department visit, radiology results, the need for outpatient follow up. Response to treatment: the patient's symptoms have markedly improved after treatment. 06/19 23:13 Order name: ABG [facility] 06/19 23:14 Order name: ABG Arterial Blood Gas; Complete Time: 23:29 [facility] 06/19 23:14 Order name: CBC with Diff; Complete Time: 00:21 [facility] 06/19 23:14 Order name: CMP; Complete Time: 00:21 [facility] 06/19 23:14 Order name: Ketone, Serum; Complete Time: 00:21 [facility] 06/19 23:15 Order name: Blood Culture Adult (2) [facility] 06/19 23:15 Order name: Lactate; Complete Time: 00:21 [facility] 06/19 23:15 Order name: Procalcitonin [facility] 06/19 23:24 Order name: Glucose, Ancillary Testing; Complete Time: 23:29 [facility] 06/19 23:47 Order name: Urine Dipstick-Ancillary; Complete Time: 23:52 [facility] 06/20 01:03 Order name: Glucose, Ancillary Testing [facility] 06/20 01:31 Order name: SARS-COV-2 RT PCR [facility] 06/19 23:04 Order name: Fingerstick Glucose; Complete Time: 23:46 [facility] 06/19 23:14 Order name: Saline Lock; Complete Time: 23:46 [facility] Administered Medications: 06/19 23:40 Drug: NS 0.9% 3000 ml Route: IV; Rate: 1 bolus; Site: right forearm; rr5 06/20 00:52 Follow up: Response: No adverse reaction; IV Status: Completed infusion; IV Intake: rr5 3000ml 06/19 23:40 Drug: Insulin Regular Human 10 units {Co-Signature: mg2 (Quan Romero RN).} Route: rr5 IVP; Site: right forearm; 06/20 00:52 Follow up: Response: No adverse reaction; Blood sugar is lowered rr5 Disposition: 06/20/20 01:42 Discharged to Home. Impression: Hyperglycemia, unspecified. - Condition is Stable. - Discharge Instructions: Hyperglycemia, Hyperglycemia, [id number]. - Medication Reconciliation Form, Thank You Letter, Antibiotic Education, Prescription Opioid Use form. - Follow up: Private Physician; When: Tomorrow; Reason: If symptoms return, Continuance of care. Addendum: 07/10/2020 11:07 Co-signature as Attending Physician, Zahra Smith MD. m a2 Signatures: Dispatcher [employer] [facility] Chu Workman PA PA [facility] Umberto Santos, CONCRETE SCULPTOR-C CONCRETE SCULPTOR-Cla1 Zahra Smith MD MD ma2 Quan Romero RN RN mg2 Kamari Hays RN RN rr5 Quan Romero RN mg2 Corrections: (The following items were deleted from the chart) 06/19 23:40 23:06 This is a 30 year old male with a history of IDDM that presents to the ED with [facility] complaints of headache, diarrhea, body aches beginning this morning. Patient is concerned he may have covid 19. Denies abdominal pain, patient states having a mild cough, denies shortness of breath. . [facility] 23:47 22:56 CORONAVIRUS+MR.LAB.BRZ ordered. [facility] EDMS 06/20 01:51 01:42 06/20/2020 01:42 Discharged to Home. Impression: Hyperglycemia, unspecified. mg2 Condition is Stable. Forms are Medication Reconciliation Form, Thank You Letter, Antibiotic Education, Prescription Opioid Use. Follow up: Private Physician; When: Tomorrow; Reason: If symptoms return, Continuance of care. ma2
[2020-06-20 01:58] VITALS: BP 128/91; TEMP 98; O2SAT 100
[2020-06-20] MEDS ORDERED: CEFTRIAXONE/SWI 1gm 1 GM/10 ML SYR ONE (02:02)
[2020-06-20] MEDS ORDERED: NA CHLORIDE 0.9% 100 ML ONE (02:02)
== END 2020-06-20 01:51 | disposition home or self-care (01) ==
LOC: ER 22:26
DX: E11.65 Type 2 diabetes mellitus with hyperglycemia (principal); Z79.4 Long term (current) use of insulin; F17.210 Nicotine dependence, cigarettes, uncomplicated; Z20.822 Contact with and (suspected) exposure to COVID-19
CPT/HCPCS: 96361; 87040 ×2; 85025; 36415; 82010; 82947 ×2; 83605; 81003; 80053; 84145; 82805; 96374; 99284; U0003; J0696; J7030

== ENCOUNTER 2021-04-20 09:08 | Emergency (ER) | payer BC ==
--- NOTE | 2021-04-20 10:00 | ER ---
Nurse's Notes [facility] Name: Chinmay Mitchell Age: 31 yrs Sex: Male : 1990 Arrival Date: 04/20/2021 Time: 09:13 Bed 20 Private MD: Diagnosis: Dental caries, unspecified;Cracked tooth;Acute gingivitis;Type 1 diabetes mellitus with hyperglycemia Presentation: 04/20 09:16 Chief complaint: Patient states: Went to dentist, clindamycin isn't helping for 2 ll1 weeks. N/V started today. Coronavirus screen: Vaccine status: Patient reports being unvaccinated. Client denies travel out of the [place] in the last 14 days. At this time, the client does not indicate any symptoms associated with coronavirus-19. Ebola Screen: Patient denies travel to an Ebola-affected area in the 21 days before illness onset. Initial Sepsis Screen: Does the patient meet any 2 criteria? No. Patient's initial sepsis screen is negative. Does the patient have a suspected source of infection? Yes: Other: teeth. Risk Assessment: Do you want to hurt yourself or someone else? Patient reports no desire to harm self or others. Onset of symptoms was April 07, 2021. 09:16 Method Of Arrival: Ambulatory ll1 09:16 Acuity: BROOKE 3 ll1 Triage Assessment: 09:19 General: Appears uncomfortable, Behavior is calm, cooperative, appropriate for age. ll1 Pain: Complains of pain in L mandible Quality of pain is described as aching. EENT: Reports pain in L mandible area. Neuro: No deficits noted. Cardiovascular: No deficits noted. GI: Reports nausea, vomiting. Historical: - Allergies: 09:16 Amoxicillin; ll1 - Home Meds: 09:37 Insulin: Regular Sub-Q [Active]; sf1 - PMHx: 09:16 Diabetes - IDDM; ll1 - PSHx: 09:16 None; ll1 - Immunization history:: Client reports having NOT received the Covid vaccine. Flu vaccine status is unknown. - Social history:: Smoking status: Patient reports the use of cigarette tobacco products, smokes one-half pack cigarettes per day. - Family history:: not pertinent. Screenin:35 Abuse screen: Denies threats or abuse. Denies injuries from another. Nutritional sf1 screening: No deficits noted. Tuberculosis screening: No symptoms or risk factors identified. Fall Risk None identified. Assessment: 09:35 General: Appears uncomfortable, Behavior is calm, cooperative. Pain: Complains of pain sf1 in pt reported tooth infection, seen dentist took anti-biotics need to see oral surgeon unable to get appointment til apr 26. EENT: Reports. Vital Signs: 09:16 Resp 16; Height 5 ft. 11 in. (180.34 cm); Pain 6/10; ll1 09:20 BP 126 / 89; Pulse 105; Temp 97.5; Pulse Ox 100% ; ll1 ED Course: 09:13 Patient arrived in ED. mr 09:16 Arm band placed on Patient placed in an exam room, on a stretcher. ll1 09:17 Dorian Mckenzie MD is Attending Physician. [facility] 09:18 Triage completed. ll1 09:35 Patient has correct armband on for positive identification. Bed in low position. sf1 09:35 No provider procedures requiring assistance completed. sf1 09:58 Manuel Marsh DDS is Referral Physician. [facility] 10:23 Patient did not have IV access during this emergency room visit. sf1 Administered Medications: 10:18 Drug: Clindamycin 300 mg Route: PO; sf1 10:23 Follow up: Response: No adverse reaction sf1 10:18 Drug: [place] (HYDROcodone-acetaminophen) 10 mg-325 mg 1 tabs Route: PO; sf1 10:23 Follow up: Response: No adverse reaction sf1 10:19 Drug: Ketorolac 60 mg Route: IM; Site: right gluteus; sf1 10:23 Follow up: Response: No adverse reaction sf1 Outcome: 10:00 Discharge ordered by . [facility] 10:23 Discharged to home sf1 10:23 Condition: good 10:23 Discharge instructions given to patient, Prescriptions given X 3. 10:23 Patient left the ED. sf1 Signatures: Dorian Mckenzie MD MD cha Rivera, Mary mr Lewis, Lynsay, RN RN 1 Zelda Rooney RN RN sf1
--- NOTE | 2021-04-20 10:00 | EDPHYS ---
Physician Documentation [facility] Name: Chinmay Mitchell Age: 31 yrs Sex: Male : 1990 Arrival Date: 04/20/2021 Time: 09:13 Bed 20 Private MD: MAGAN Physician Dorian Mckenzie HPI: 04/20 09:53 This 31 yrs old Male presents to ER via Ambulatory with complaints of carlos Toothache, Vomiting. 09:53 The patient presents with broken tooth/teeth, redness, swelling. The problem is located carlos in the lower left second molar. Onset: The symptoms/episode began/occurred 2 day(s) ago. Duration: The symptoms are continuous, and are steadily getting worse. Modifying factors: The symptoms are alleviated by nothing, the symptoms are aggravated by chewing, cold fluids, talking. Associated signs and symptoms: The patient has no apparent associated signs or symptoms. The patient has experienced similar episodes in the past, multiple times. Historical: - Allergies: 09:16 Amoxicillin; ll1 - Home Meds: 09:37 Insulin: Regular Sub-Q [Active]; sf1 - PMHx: 09:16 Diabetes - IDDM; ll1 - PSHx: 09:16 None; ll1 - Immunization history:: Client reports having NOT received the Covid vaccine. Flu vaccine status is unknown. - Social history:: Smoking status: Patient reports the use of cigarette tobacco products, smokes one-half pack cigarettes per day. - Family history:: not pertinent. ROS: 09:53 Constitutional: Negative for fever, chills, and weight loss, Eyes: Negative for injury, carlos pain, redness, and discharge, Neck: Negative for injury, pain, and swelling, Cardiovascular: Negative for chest pain, palpitations, and edema, Respiratory: Negative for shortness of breath, cough, wheezing, and pleuritic chest pain, Abdomen/GI: Negative for abdominal pain, nausea, vomiting, diarrhea, and constipation, Back: Negative for injury and pain, : Negative for injury, bleeding, discharge, and swelling, MS/Extremity: Negative for injury and deformity, Skin: Negative for injury, rash, and discoloration, Neuro: Negative for headache, weakness, numbness, tingling, and seizure, Psych: Negative for depression, anxiety, suicide ideation, homicidal ideation, and hallucinations, Allergy/Immunology: Negative for hives, rash, and allergies, Endocrine: Negative for neck swelling, polydipsia, polyuria, polyphagia, and marked weight changes, Hematologic/Lymphatic: Negative for swollen nodes, abnormal bleeding, and unusual bruising. 09:53 ENT: Positive for Gum pain Teeth pain Exam: 09:53 Constitutional: This is a well developed, well nourished patient who is awake, alert, carlos and in no acute distress. Eyes: Pupils equal round and reactive to light, extra-ocular motions intact. Lids and lashes normal. Conjunctiva and sclera are non-icteric and not injected. Cornea within normal limits. Periorbital areas with no swelling, redness, or edema. Neck: Trachea midline, no thyromegaly or masses palpated, and no cervical lymphadenopathy. Supple, full range of motion without nuchal rigidity, or vertebral point tenderness. No Meningismus. Chest/axilla: Normal chest wall appearance and motion. Nontender with no deformity. No lesions are appreciated. Cardiovascular: Regular rate and rhythm with a normal S1 and S2. No gallops, murmurs, or rubs. Normal PMI, no JVD. No pulse deficits. Respiratory: Lungs have equal breath sounds bilaterally, clear to auscultation and percussion. No rales, rhonchi or wheezes noted. No increased work of breathing, no retractions or nasal flaring. Abdomen/GI: Soft, non-tender, with normal bowel sounds. No distension or tympany. No guarding or rebound. No evidence of tenderness throughout. Back: No spinal tenderness. No costovertebral tenderness. Full range of motion. Male : Normal genitalia with no discharge or lesions. Skin: Warm, dry with normal turgor. Normal color with no rashes, no lesions, and no evidence of cellulitis. MS/ Extremity: Pulses equal, no cyanosis. Neurovascular intact. Full, normal range of motion. Neuro: Awake and alert, GCS 15, oriented to person, place, time, and situation. Cranial nerves II-XII grossly intact. Motor strength 5/5 in all extremities. Sensory grossly intact. Cerebellar exam normal. Normal gait. Psych: Awake, alert, with orientation to person, place and time. Behavior, mood, and affect are within normal limits. 09:53 Head/face: Noted is swelling, tenderness, that is mild, of the left jaw. 09:53 ENT: Mouth: Oral mucosa: normal, pink and intact, moist, Gums: noted to have cellulitis, reddened, swollen, on the lower left second molar, Posterior pharynx: is normal, airway is patent, no erythema, no exudate, no peritonsilar mass, no pooling of secretions, no swelling, normal tonsil apperance, normal sized tonsils, normal uvula appearance, normal uvula size, no acute changes, Airway: normal, no evidence of obstruction. Vital Signs: 09:16 Resp 16; Height 5 ft. 11 in. (180.34 cm); Pain 6/10; ll1 09:20 BP 126 / 89; Pulse 105; Temp 97.5; Pulse Ox 100% ; ll1 MDM: 09:17 Patient medically screened. carlos 09:57 Differential diagnosis: dental caries, gingivitis, dental abscess, pericoronitis. Data carlos reviewed: vital signs, EMS record. Data interpreted: library monitor: rate is 105 beats/min, rhythm is regular, Pulse oximetry: on room air is 100 %. Counseling: I had a detailed discussion with the patient and/or guardian regarding: the historical points, exam findings, and any diagnostic results supporting the discharge/admit diagnosis, lab results, radiology results. Administered Medications: 10:18 Drug: Clindamycin 300 mg Route: PO; sf1 10:23 Follow up: Response: No adverse reaction sf1 10:18 Drug: [place] (HYDROcodone-acetaminophen) 10 mg-325 mg 1 tabs Route: PO; sf1 10:23 Follow up: Response: No adverse reaction sf1 10:19 Drug: Ketorolac 60 mg Route: IM; Site: right gluteus; sf1 10:23 Follow up: Response: No adverse reaction sf1 Disposition Summary: 04/20/21 10:00 Discharge Ordered Location: Home carlos Problem: new carlos Symptoms: have improved carlos Condition: Stable carlos Diagnosis - Dental caries, unspecified carlos - Cracked tooth carlos - Acute gingivitis carlos - Type 1 diabetes mellitus with hyperglycemia carlos Followup: carlos - With: Private Physician - When: Today - Reason: Recheck today's complaints, Continuance of care, Re-evaluation by your physician Followup: carlos - With: Manuel Marsh DDS - When: Upon discharge from the Emergency Department - Reason: Recheck today's complaints, Continuance of care, Re-evaluation by your physician Discharge Instructions: - Discharge Summary Sheet carlos - Dental Caries, Adult carlos - Dental Pain carlos - Type 1 Diabetes Mellitus, Diagnosis, Adult carlos - Dental Pain, [id number] carlos - Diabetes Mellitus and Nutrition, Adult carlos - Dental Caries, Adult, [id number] [facility] Forms: - Medication Reconciliation Form [facility] - Thank You Letter carlos - Antibiotic Education [facility] - Prescription Opioid Use [facility] Prescriptions: - Clindamycin HCl 300 mg Oral Capsule - take 1 capsule by ORAL route every 6 hours for 10 days; 40 capsule; Refills: 0, [facility] Product Selection Permitted - Ibuprofen 600 mg Oral Tablet - take 1 tablet by ORAL route every 6 hours As needed take with food; 30 tablet; [facility] Refills: 0, Product Selection Permitted - Tylenol-Codeine #3 300 mg-30 mg Oral - take 2 tablet by ORAL route every 6 hours; 20 tablet; Refills: 0, Product [facility] Selection Permitted Signatures: Dorian Mckenzie MD MD cha Lewis, Lynsay RN RN ll1 Zelda Rooney RN RN sf1
[2021-04-20] MEDS ORDERED: KETOROLAC 30 MG/ML INJ ONE (10:14)
[2021-04-20] MEDS ORDERED: HYDROCODONE/APAP 10/325 TAB ONE (10:14)
[2021-04-20 10:30] VITALS: BP 126/89; TEMP 97.5; O2SAT 100
== END 2021-04-20 10:23 | disposition home or self-care (01) ==
LOC: ER 09:08
DX: K03.81 Cracked tooth (principal); K05.00 Acute gingivitis, plaque induced; K02.9 Dental caries, unspecified; E10.65 Type 1 diabetes mellitus with hyperglycemia; F17.210 Nicotine dependence, cigarettes, uncomplicated; Z79.4 Long term (current) use of insulin; Z88.1 Allergy status to other antibiotic agents
CPT/HCPCS: 96372; 99283

== ENCOUNTER 2022-03-25 12:49 | Observation (INO) | payer BC ==
--- NOTE | 2022-03-25 13:34 | RAD REPORT ---
EXAM DESCRIPTION: RAD - Chest Single View - 03/25/2022 1:22 pm CLINICAL HISTORY: CHEST PAIN Chest pain. COMPARISON: CHEST SINGLE VIEW dated 06/28/2011 FINDINGS: Portable technique limits examination quality. The lungs are grossly clear. The heart is normal in size. No displaced fractures. IMPRESSION: No acute intrathoracic process suspected.
[2022-03-25 13:50] LABS: Absolute Lymphocytes (CBC) 0.8 K/uL (0.7-4.9); Hematocrit 38.1 % (39.6-49.0); Lymphocytes % 10.6 % (15.3-44.8); MCV 94.8 fL (80-100); MPV 6.5 fL (7.6-11.3); RBC Red Blood Cell Count 4.02 M/uL (4.33-5.43)
[2022-03-25 14:21] LABS: ALT/SGPT 36 U/L (16-61); AST/SGOT 9 U/L (15-37); Albumin 3.5 g/dL (3.4-5.0); Alkaline Phosphatase 84 U/L (45-117); BUN Blood Urea Nitrogen 11 mg/dL (7-18); Bicarbonate 19 mmol/L (21-32); Bilirubin Total 0.4 mg/dL (0.2-1.0); Glomerular Filtration Rate 130 ml/min (=/>90); Lipase 346 U/L (73-393); Potassium 3.2 mmol/L (3.5-5.1); Protein, Total 6.3 g/dL (6.4-8.2); Sodium Level 135 mmol/L (136-145); Troponin High Sensitivity 4.7 pg/mL (<58.9)
[2022-03-25 14:23] LABS: Bilirubin Direct < 0.1 mg/dL (0-0.2)
[2022-03-25 14:26] LABS: Glucose Level 606 mg/dL (74-106)
[2022-03-25] MEDS ORDERED: POTASSIUM 25 MEQ EFFERV TAB ONE (15:01)
[2022-03-25] MEDS ORDERED: FAMOTIDINE 20 MG/2 ML VIAL IV ONE (15:02)
[2022-03-25] MEDS ORDERED: NA CHLORIDE 0.9% 1,000 ML ONE ×2 (15:02→15:32)
[2022-03-25] MEDS ORDERED: INSULIN -REGULAR HUMAN 50 UNIT/0.5 ML ML ONE (15:02)
--- NOTE | 2022-03-25 15:33 | ER ---
Nurse's Notes [facility] Name: Chinmay Mitchell Age: 32 yrs Sex: Male : 1990 Arrival Date: 03/25/2022 Time: 12:55 Bed 8 Private MD: Diagnosis: Other specified diabetes mellitus with ketoacidosis Presentation: 03/25 13:07 Chief complaint: Patient states: i have chest pain, its here to my left side of my jh5 chest. It just palacios, nothing else. Coronavirus screen: Vaccine status: Patient reports being unvaccinated. Client denies travel out of the [place] in the last 14 days. Ebola Screen: Patient negative for fever greater than or equal to 101.5 degrees Fahrenheit, and additional compatible Ebola Virus Disease symptoms Patient denies exposure to infectious person. Patient denies travel to an Ebola-affected area in the 21 days before illness onset. Initial Sepsis Screen: Does the patient meet any 2 criteria? No. Patient's initial sepsis screen is negative. Does the patient have a suspected source of infection? No. Patient's initial sepsis screen is negative. Risk Assessment: Do you want to hurt yourself or someone else? Patient reports no desire to harm self or others. Onset of symptoms was March 2022. 13:07 Method Of Arrival: Ambulatory [facility] 13:07 Acuity: BROOKE 3 jh5 Triage Assessment: 13:07 General: Appears in no apparent distress. slender, Behavior is calm, cooperative, jh5 appropriate for age. Pain: Complains of pain in chest. Cardiovascular: Reports chest pain. Historical: - Allergies: 13:07 Amoxicillin; [facility] - PMHx: 13:07 Diabetes - IDDM; [facility] - Immunization history:: Adult Immunizations up to date. - Social history:: Smoking status: Patient reports the use of cigarette tobacco products, smokes one-half pack cigarettes per day. Screenin:35 [facility] ED Fall Risk Assessment (Adult) History of falling in the last 3 months, ld1 including since admission No falls in past 3 months (0 pts). Abuse screen: Denies threats or abuse. Denies injuries from another. Nutritional screening: No deficits noted. Tuberculosis screening: No symptoms or risk factors identified. Assessment: 14:35 General: Appears in no apparent distress. comfortable, Behavior is calm, cooperative, ld1 appropriate for age. Pain: Complains of pain in chest Pain does not radiate. Pain currently is 8 out of 10 on a pain scale. Quality of pain is described as throbbing, Pain began gradually. 14:35 Neuro: Level of Consciousness is awake, alert, obeys commands, Oriented to person, ld1 place, time, situation. Cardiovascular: Capillary refill < 3 seconds Patient's skin is warm and dry. Rhythm is sinus tachycardia. Respiratory: Airway is patent Respiratory effort is even, unlabored. GI: Abdomen is flat, non-distended. : No signs and/or symptoms were reported regarding the genitourinary system. EENT: No signs and/or symptoms were reported regarding the EENT system. Derm: No signs and/or symptoms reported regarding the dermatologic system. Musculoskeletal: No signs and/or symptoms reported regarding the musculoskeletal system. 15:30 Reassessment: Patient appears in no apparent distress at this time. Patient and/or ld1 family updated on plan of care and expected duration. Pain level reassessed. Patient is alert, oriented x 3, equal unlabored respirations, skin warm/dry/pink. 16:30 Reassessment: Patient appears in no apparent distress at this time. Patient and/or ld1 family updated on plan of care and expected duration. Pain level reassessed. Patient denies pain at this time. 17:14 Reassessment: Patient appears in no apparent distress at this time. No changes from ld1 previously documented assessment. Patient and/or family updated on plan of care and expected duration. Pain level reassessed. 18:10 Reassessment: Patient appears in no apparent distress at this time. No changes from kc6 previously documented assessment. Patient and/or family updated on plan of care and expected duration. Pain level reassessed. Patient is alert, oriented x 3, equal unlabored respirations, skin warm/dry/pink. insulin drip increased to 9 units/hr per protocol. please see Tabtor for further charting Patient denies pain at this time. 18:32 Reassessment: attempted to call report to ICU. stated it will have to be after shift kc6 change because they only have one nurse. Vital Signs: 13:07 BP 115 / 73; Pulse 113; Resp 18; Temp 98.6; Pulse Ox 98% ; Weight 65.77 kg; Height 5 jh5 ft. 11 in. (180.34 cm); Pain 6/10; 14:35 BP 129 / 86; Pulse 115; Resp 14; Pulse Ox 98% on R/A; Pain 8/10; ld1 15:30 BP 123 / 89; Pulse 106; Resp 12; Temp 98.4(O); Pulse Ox 98% on R/A; ld1 16:30 BP 123 / 85; Pulse 96; Resp 18; Pulse Ox 99% on R/A; ld1 17:13 BP 131 / 85; Pulse 103; Resp 18; Pulse Ox 98% on R/A; Pain 0/10; ld1 18:12 BP 112 / 70; Pulse 110; Resp 13 S; Pulse Ox 98% on R/A; Pain 0/10; kc6 19:11 BP 119 / 75; Pulse 105; Resp 19; Pulse Ox 97% on R/A; kd3 13:07 Body Mass Index 20.22 (65.77 kg, 180.34 cm) [facility] ED Course: 12:55 Patient arrived in ED. mr 12:56 [facility]un[facility] Rod [facility] 12:56 Reza Cain MD is Attending Physician. [facility] 13:07 Arm band placed on right wrist. [facility] 13:09 Triage completed. [facility] 13:12 Michelle Colvin, TRELL is Primary Nurse. ld1 13:24 XRAY Chest (1 view) In Process Unspecified. EDMS 13:40 Inserted saline lock: 20 gauge in right forearm, using aseptic technique. Blood zm collected. 14:35 Patient has correct armband on for positive identification. Placed in gown. Bed in low ld1 position. Call light in reach. Side rails up X2. residential monitor on. Pulse ox on. NIBP on. Door closed. Noise minimized. Warm blanket given. 14:35 No provider procedures requiring assistance completed. Patient maintains SpO2 ld1 saturation greater than 95% on room air. 15:31 Fareed Infante MD is Hospitalizing Provider. [facility] 18:54 Patient admitted, IV remains in place. [facility] 19:15 Primary Nurse role handed off by Michelle Colvin, RN mw2 19:19 Elis Fry, TRELL is Primary Nurse. 3 Administered Medications: 15:08 Drug: Insulin Regular Human 10 units {Co-Signature: vg1 (Janie Lewis RN).} Route: ld1 IVP; Site: right forearm; 16:08 Follow up: Response: No adverse reaction; Blood sugar is lowered kc6 15:08 Drug: Potassium Effervescent Tablet 50 mEq Route: PO; ld1 16:08 Follow up: Response: No adverse reaction kc6 15:08 Drug: Pepcid (famotidine) 20 mg Route: IVP; Site: right forearm; ld1 16:08 Follow up: Response: No adverse reaction kc6 15:09 Drug: NS 0.9% 1000 ml Route: IV; Rate: 1 bolus; Site: right forearm; ld1 16:09 Follow up: Response: No adverse reaction; IV Status: Completed infusion; IV Intake: kc6 1000ml 15:31 Drug: NS 0.9% 1000 ml Route: IV; Rate: 1 bolus; Site: right antecubital; kc6 16:31 Follow up: Response: No adverse reaction; IV Status: Completed infusion; IV Intake: kc6 1000ml 16:10 Drug: Insulin Drip - (Insulin Regular Human 100 units, NS 0.9% 100 ml) {Co-Signature: ld1 vg1 (Janie Lewis RN).} Route: IV; Rate: calculated rate; Site: right forearm; 17:12 Follow up: Rate change 8 units/hr; IV Status: Infusion continued ld1 Medication: 14:35 VIS not applicable for this client. ld1 Point of Care Testing: Blood Glucose: 18:10 Blood Glucose: 276 mg/dL; kc6 Ranges: Intake: 16:09 IV: 1000ml; Total: 1000ml. kc6 16:31 IV: 1000ml; Total: 2000ml. kc6 Outcome: 15:32 Decision to Hospitalize by Provider. 7 18:54 Condition: stable kc6 18:54 Instructed on the need for admit. 19:38 Patient left the ED. kd3 Signatures: Dispatcher [employer] MAGANJodi Quintanilla MyKena mw2 Michelle Colvin, RN RN ld1 Marisela Laguerre RN RN jh5 Elis Fry RN RN kd3 Dana Paiz Jennifer, SANDWICH MACHINE OPERATOR SANDWICH MACHINE OPERATOR 7 Abby Tijerina RN RN kc6 Janie Joshua RN vg1 Corrections: (The following items were deleted from the chart) 17:15 16:30 Reassessment: Patient appears in no apparent distress at this time. No changes ld1 from previously documented assessment. Patient and/or family updated on plan of care and expected duration. Pain level reassessed. ld1 18:54 18:10 Reassessment: Patient appears in no apparent distress at this time. No changes kc6 from previously documented assessment. Patient and/or family updated on plan of care and expected duration. Pain level reassessed. Patient is alert, oriented x 3, equal unlabored respirations, skin warm/dry/pink. insulin drip increased to 9 units/hr per protocol. Patient denies pain at this time. kc6 18:59 18:12 Pulse 110bpm; Resp 13bpm; Spontaneous; Pulse Ox 98% RA; Pain 0/10; kc6 kc6
--- NOTE | 2022-03-25 15:33 | EDPHYS ---
Physician Documentation [facility] Name: Chinmay Mitchell Age: 32 yrs Sex: Male : 1990 Arrival Date: 03/25/2022 Time: 12:55 Bed 8 Private MD: ED Physician Reza Cain HPI: 03/25 13:10 This 32 yrs old Male presents to ER via Ambulatory with complaints of Chest Pain. [facility] 13:10 Onset: The symptoms/episode began/occurred acutely. Associated signs and symptoms: [facility] Pertinent negatives: abdominal pain, congestion, constipation, cough, fever, headache, shortness of breath, sore throat. 32-year-old male presents with left-sided chest pain for the past 2 to 3 hours. He denies any other symptoms, but states that the pain palacios when drinking liquids. History of type 1 diabetes. Denies any PCP due to just getting new insurance.. Historical: - Allergies: 13:07 Amoxicillin; jh5 - PMHx: 13:07 Diabetes - IDDM; 5 - Immunization history:: Adult Immunizations up to date. - Social history:: Smoking status: Patient reports the use of cigarette tobacco products, smokes one-half pack cigarettes per day. ROS: 13:10 Constitutional: Negative for fever, chills, and weight loss, Eyes: Negative for injury, jh7 pain, redness, and discharge, Respiratory: Negative for shortness of breath, cough, wheezing, and pleuritic chest pain, Abdomen/GI: Negative for abdominal pain, nausea, vomiting, diarrhea, and constipation, Back: Negative for injury and pain, Skin: Negative for injury, rash, and discoloration, Neuro: Negative for headache, weakness, numbness, tingling, and seizure. 13:10 Cardiovascular: Positive for chest pain, Negative for palpitations. 13:10 All other systems are negative. Exam: 13:10 Constitutional: This is a well developed, well nourished patient who is awake, alert, jh7 and in no acute distress. Head/Face: Normocephalic, atraumatic. ENT: Nares patent. No nasal discharge, no septal abnormalities noted. Oropharynx with no redness, swelling, or masses, exudates, or evidence of obstruction, uvula midline. Mucous membranes moist. Neck: Trachea midline, no thyromegaly or masses palpated, and no cervical lymphadenopathy. Supple, full range of motion without nuchal rigidity, or vertebral point tenderness. No Meningismus. Cardiovascular: Regular rate and rhythm with a normal S1 and S2. No gallops, murmurs, or rubs. Normal PMI, no JVD. No pulse deficits. Respiratory: Lungs have equal breath sounds bilaterally, clear to auscultation and percussion. No rales, rhonchi or wheezes noted. No increased work of breathing, no retractions or nasal flaring. Abdomen/GI: Soft, non-tender, with normal bowel sounds. No distension or tympany. No guarding or rebound. No evidence of tenderness throughout. Back: No spinal tenderness. No costovertebral tenderness. Full range of motion. Skin: Warm, dry with normal turgor. Normal color with no rashes, no lesions, and no evidence of cellulitis. MS/ Extremity: Pulses equal, no cyanosis. Neurovascular intact. Full, normal range of motion. Neuro: Awake and alert, GCS 15, oriented to person, place, time, and situation. Motor strength 5/5 in all extremities. Sensory grossly intact. Normal gait. Vital Signs: 13:07 BP 115 / 73; Pulse 113; Resp 18; Temp 98.6; Pulse Ox 98% ; Weight 65.77 kg; Height 5 jh5 ft. 11 in. (180.34 cm); Pain 6/10; 14:35 BP 129 / 86; Pulse 115; Resp 14; Pulse Ox 98% on R/A; Pain 8/10; ld1 15:30 BP 123 / 89; Pulse 106; Resp 12; Temp 98.4(O); Pulse Ox 98% on R/A; ld1 16:30 BP 123 / 85; Pulse 96; Resp 18; Pulse Ox 99% on R/A; ld1 17:13 BP 131 / 85; Pulse 103; Resp 18; Pulse Ox 98% on R/A; Pain 0/10; ld1 18:12 BP 112 / 70; Pulse 110; Resp 13 S; Pulse Ox 98% on R/A; Pain 0/10; kc6 19:11 BP 119 / 75; Pulse 105; Resp 19; Pulse Ox 97% on R/A; kd3 13:07 Body Mass Index 20.22 (65.77 kg, 180.34 cm) jh5 MDM: 12:56 Patient medically screened. 7 15:38 Differential diagnosis: pneumonia Acute NC, DKA, bronchitis, costochondritis. Data [facility] reviewed: vital signs, nurses notes, lab test result(s), EKG, radiologic studies, plain films. Consideration of Admission/Observation Patient was admitted/placed on observation. Management of patient was discussed with the following: Hospitalist: Carlos, with Dr. Infante. I considered the following discharge prescriptions or medication management in the emergency department Medications were administered in the Emergency Department. See MAR. Independent interpretation of the following test(s) in the Emergency Department EKG: See my EKG interpretation above X-Ray: My interpretation is no acute findings. Care significantly affected by the following chronic conditions: Diabetes. Care significantly affected by the following Social Determinants of Health: Poor access to healthcare and/or lack of insurance. Counseling: I had a detailed discussion with the patient and/or guardian regarding: the historical points, exam findings, and any diagnostic results supporting the discharge/admit diagnosis, the need for further work-up and treatment in the hospital. Response to treatment: the patient's symptoms have mildly improved after treatment. 03/25 13:03 Order name: Basic Metabolic Panel; Complete Time: 14:26 [facility] 03/25 13:03 Order name: CBC with Diff; Complete Time: 14:09 [facility] 03/25 13:03 Order name: LFT's; Complete Time: 14:26 [facility] 03/25 13:03 Order name: Troponin HS; Complete Time: 14:26 [facility] 03/25 13:03 Order name: Lipase; Complete Time: 14:26 [facility] 03/25 14:28 Order name: Ketone, Serum; Complete Time: 15:30 [facility] 03/25 14:28 Order name: ABG; Complete Time: 15:59 [facility] 03/25 14:29 Order name: Magnesium; Complete Time: 15:30 [facility] 03/25 14:29 Order name: Phosphorus; Complete Time: 15:30 [facility] 03/25 15:34 Order name: SARS RAPID; Complete Time: 16:37 aa5 03/25 16:18 Order name: Glucose, Ancillary Testing; Complete Time: 16:37 EDMS 03/25 17:01 Order name: Basic Metabolic Panel EDMS 03/25 17:01 Order name: Basic Metabolic Panel; Complete Time: 18:40 EDMS 03/25 17:01 Order name: Basic Metabolic Panel EDMS 03/25 17:01 Order name: Basic Metabolic Panel EDMS 03/25 17:01 Order name: CBC with Automated Diff EDMS 03/25 17:01 Order name: CBC with Automated Diff EDMS 03/25 17:01 Order name: CBC with Automated Diff EDMS 03/25 17:01 Order name: CBC with Automated Diff EDMS 03/25 17:01 Order name: Magnesium EDMS 03/25 17:01 Order name: Magnesium EDMS 03/25 17:01 Order name: Magnesium EDMS 03/25 17:01 Order name: Magnesium EDMS 03/25 17:01 Order name: Osmolality, Serum EDMS 03/25 17:01 Order name: Osmolality, Serum EDMS 03/25 17:01 Order name: Osmolality, Serum EDMS 03/25 17:01 Order name: Osmolality, Serum EDMS 03/25 17:01 Order name: Phosphorus EDMS 03/25 17:01 Order name: Phosphorus EDMS 03/25 17:01 Order name: Phosphorus EDMS 03/25 13:03 Order name: XRAY Chest (1 view); Complete Time: 13:46 [facility] 03/25 13:03 Order name: EKG; Complete Time: 13:03 [facility] 03/25 13:03 Order name: Cardiac monitoring; Complete Time: 13:27 [facility] 03/25 13:03 Order name: EKG - Nurse/Tech; Complete Time: 13:27 [facility] 03/25 13:03 Order name: IV Saline Lock; Complete Time: 13:39 [facility] 03/25 13:03 Order name: Labs collected and sent; Complete Time: 13:39 [facility] 03/25 13:03 Order name: O2 Per Protocol; Complete Time: 13:27 [facility] 03/25 13:03 Order name: O2 Sat Monitoring; Complete Time: 13:27 [facility] 03/25 16:54 Order name: CONS Physician Consult EDMS 03/25 16:56 Order name: NPO EDMS 03/25 17:01 Order name: Phosphorus EDMS 03/25 17:03 Order name: Echo with Doppler EDMS 03/25 17:03 Order name: T4 Free EDMS 03/25 17:03 Order name: Thyroid Stimulating Hormone EDMS 03/25 17:03 Order name: Troponin High Sensitivity EDMS 03/25 17:03 Order name: Troponin High Sensitivity EDMS 03/25 17:03 Order name: Troponin High Sensitivity EDMS 03/25 17:22 Order name: Glucose, Ancillary Testing; Complete Time: 17:33 EDMS 03/25 18:07 Order name: Phosphorus; Complete Time: 18:40 EDMS 03/25 18:07 Order name: Magnesium; Complete Time: 18:40 EDMS 03/25 18:22 Order name: Glucose, Ancillary Testing; Complete Time: 18:40 EDMS 03/25 19:30 Order name: Glucose, Ancillary Testing EDMS EC:21 Rate is 100 beats/min. Rhythm is regular. QRS [place] is Normal. NH interval is normal at jh7 146 msec. QRS interval is normal at 88 msec. QT interval is normal at 340 msec. No Q waves. Clinical impression: NSR w/ Non-specific ST/T Changes. Administered Medications: 15:08 Drug: Insulin Regular Human 10 units {Co-Signature: vg1 (Janie Lewis RN).} Route: ld1 IVP; Site: right forearm; 16:08 Follow up: Response: No adverse reaction; Blood sugar is lowered kc6 15:08 Drug: Potassium Effervescent Tablet 50 mEq Route: PO; ld1 16:08 Follow up: Response: No adverse reaction kc6 15:08 Drug: Pepcid (famotidine) 20 mg Route: IVP; Site: right forearm; ld1 16:08 Follow up: Response: No adverse reaction kc6 15:09 Drug: NS 0.9% 1000 ml Route: IV; Rate: 1 bolus; Site: right forearm; ld1 16:09 Follow up: Response: No adverse reaction; IV Status: Completed infusion; IV Intake: kc6 1000ml 15:31 Drug: NS 0.9% 1000 ml Route: IV; Rate: 1 bolus; Site: right antecubital; kc6 16:31 Follow up: Response: No adverse reaction; IV Status: Completed infusion; IV Intake: kc6 1000ml 16:10 Drug: Insulin Drip - (Insulin Regular Human 100 units, NS 0.9% 100 ml) {Co-Signature: ld1 vg1 (Janie Lewis RN).} Route: IV; Rate: calculated rate; Site: right forearm; 17:12 Follow up: Rate change 8 units/hr; IV Status: Infusion continued ld1 Point of Care Testing: Blood Glucose: 18:10 Blood Glucose: 276 mg/dL; kc6 Ranges: Critical Glucose Levels:Adult <50 mg/dl or >400 mg/dl <40 mg/dl or >180 mg/dl Disposition: 03/26 08:09 Co-signature as Attending Physician, Reza Cain MD I reviewed the patient's care rt provided by the Advanced Practice Provider and agree with the diagnosis and treatment plan. Disposition Summary: 03/25/22 15:32 Hospitalization Ordered Hospitalization Status: Inpatient Admission [facility] Provider: Fareed Infante [facility] Location: Intensive Care Unit [facility] Condition: Fair [facility] Problem: an ongoing problem [facility] Symptoms: are unchanged [facility] Bed/Room Type: Standard [facility] Room Assignment: 6-(03/25/22 18:25) bd Diagnosis - Other specified diabetes mellitus with ketoacidosis [facility] Forms: - Medication Reconciliation Form [facility] - SBAR form [facility] Signatures: Dispatcher [employer] EDMarii Del Toro Lauren, RN RN ld1 Marisela Laguerre RN RN jh5 Eunice Rod, BUSINESS INTELLIGENCE CONSULTANT BUSINESS INTELLIGENCE CONSULTANT 7 Abby Tijerina RN RN kc6 Reza Cani MD MD rt Janie Lewis RN vg1 Corrections: (The following items were deleted from the chart) 03/25 18:25 15:32 [facility]
[2022-03-25] MEDS ORDERED: GLUCAGON 1 MG/VIAL IM PRN ×2 (15:36→18:29)
[2022-03-25] MEDS ORDERED: D10W 250 ML BAG IV PRN ×2 (15:39→18:34)
[2022-03-25 15:44] LABS: Arterial Blood Carboxyhemoglob 3.8 % (0-1.5); Blood Gas Oxyhemoglobin 90.6 % (94-97); Blood O2 Saturation 95.6 % (92-98.5)
[2022-03-25] MEDS ORDERED: INSULIN -REGULAR HUMAN 100 UNIT in NA CHLORIDE 0.9% 100 ML IV SCH (15:45)
[2022-03-25 16:25] LABS: SARS-CoV-2 Antigen Rapid Res Negative (Negative)
[2022-03-25] MEDS ORDERED: MORPHINE 2 MG/ML SYR IV PRN (16:53)
[2022-03-25] MEDS ORDERED: ACETAMINOPHEN 325 MG TABLET PO PRN (16:53)
[2022-03-25] MEDS ORDERED: ONDANSETRON 4 MG/2 ML VIAL IV PRN (16:58)
[2022-03-25] MEDS: NS KCL 20MEQ 1,000 ML IV SCH ×2 (17:00→19:00)
--- NOTE | 2022-03-25 17:02 | P.HP ---
Certification for Inpatient Patient admitted to: Inpatient With expected LOS: >2 Midnights Patient will require the following post-hospital care: None Practitioner: I am a practitioner with admitting privileges, knowledge of patient current condition, hospital course, and medical plan of care. Services: Services provided to patient in accordance with Admission requirements found in Title 42 Section 412.3 of the Code of Federal Regulations <Jacob Marc - Last Filed: 03/25/22 23:47> Patient History Date of Service: 03/25/22 Reason for admission: Chest pain History of Present Illness: Patient is a 32 -year-old male with a past medical history significant for DM 1, nicotine dependence who presents with complaint of substernal chest pain onset today. Patient rated pain as 8/10 in severity and described pain as burning\sharp in quality. Patient reported associated signs and symptoms of polydipsia and polyuria. Patient denies any other signs or symptoms. Symptoms are aggravated or relieved by nothing. Patient decided to present to the hospital for medical evaluation. Of note, patient has not been taking his insulin regimen for quite some time now. - Past Medical/Surgical History Diabetic: Yes -: Type 1 diabetes mellitus -: Nicotine dependence -: None Psychosocial/ Personal History: , lives at home with - Family History Father -: Diabetes - Social History Smoking Status: Current every day smoker Counseled patient to stop smoking for: less than 10 minutes Smoking therapy provided: Yes Patient receptive to therapy: No Alcohol use: No CD- Drugs: No Caffeine use: Yes Place of Residence: Home <Jacob Marc - Last Filed: 03/25/22 23:47> Date of Service: 03/26/22 <Fareed Infante - Last Filed: 03/26/22 06:20> Allergies amoxicillin Allergy (Verified 10/19/19 02:45) Unknown Home Medications: RX: Insulin Detemir [Levemir Flextouch] 30 unit SQ BID 10/19/19 Ondansetron [Zofran] 4 mg PO Q6H PRN #20 tab 05/31/20 Review of Systems General: Other (Polydipsia) Eyes: Unremarkable ENT: Unremarkable Respiratory: Unremarkable Cardiovascular: Chest Pain Gastrointestinal: Unremarkable Genitourinary: Other (Polyuria ) Musculoskeletal: Unremarkable Integumentary: Unremarkable Neurological: Unremarkable Lymphatics: Unremarkable <Jacob Marc - Last Filed: 03/25/22 23:47> Physical Examination - Physical Exam General: Alert, In no apparent distress, Oriented x3, Cooperative HEENT: Atraumatic, PERRLA, Mucous membr. moist/pink, EOMI, Sclerae nonicteric Neck: Supple, 2+ carotid pulse no bruit, No LAD, Without JVD or thyroid abnormality Respiratory: Clear to auscultation bilaterally, Normal air movement, Diminished Cardiovascular: No edema, Regular rate/rhythm, Normal S1 S2 Capillary refill: <2 Seconds Gastrointestinal: Normal bowel sounds, Soft and benign, Non-distended, No tenderness Musculoskeletal: No clubbing, No swelling, No tenderness Integumentary: No rashes, No significant lesion, No tenderness/swelling, No erythema Neurological: Normal speech, Normal tone, Normal affect Lymphatics: No axilla or inguinal lymphadenopathy - Studies Laboratory Data (last 24 hrs) 03/25/22 13:38: Phosphorus 4.0, Magnesium 2.0 03/25/22 13:38: WBC 7.50, Hgb 13.0 L, Hct 38.1 L, Plt Count 372 03/25/22 13:38: Sodium 135 L, Potassium 3.2 L, BUN 11, Creatinine 0.63 L, Glucose 606 H*, Total Bilirubin 0.4, AST 9 L, ALT 36, Alkaline Phosphatase 84, Lipase 346 <Jacob Marc Aidan - Last Filed: 03/25/22 23:47> - Studies Laboratory Data (last 24 hrs) 03/25/22 13:38: Phosphorus 4.0, Magnesium 2.0 03/25/22 13:38: WBC 7.50, Hgb 13.0 L, Hct 38.1 L, Plt Count 372 03/25/22 13:38: Sodium 135 L, Potassium 3.2 L, BUN 11, Creatinine 0.63 L, Glucose 606 H*, Total Bilirubin 0.4, AST 9 L, ALT 36, Alkaline Phosphatase 84, Lipase 346 <Fareed Infante - Last Filed: 03/26/22 06:20> Assessment and Plan - Plan --DKA associated with DM type I. The patient has not been compliant with his home insulin regimen. Patient placed on insulin drip. Continue IV hydration. Will replete electrolytes as needed. Continue supportive care. --Nicotine dependence. Patient counseled on tobacco cessation and patient refuses nicotine patch --Chest pain. Likely atypical. Serial troponins negative so far. We will trend troponin levels. Cardiology consulted. Echocardiogram pending to assess cardiac function and structure. Telemetry. Will await further recommendation from teacher learning disabled --Hypokalemia. Replete as needed. --Anemia of chronic disease. H&H stable. We will continue monitor hemoglobin and transfuse if less than 7.0. --Anion gap metabolic acidosis. Secondary to DKA. Continue current treatment regimen. --DVT prophylaxis with Lovenox subQ. Discharge Plan: Home Plan to discharge in: Greater than 2 days - Advance Directives Does patient have a Living Will: No Does patient have a Durable POA for Healthcare: Yes - Code Status/Comfort Care Code Status Assessed: Yes Physician Review: Patient Assessed, Agree with Above Assessment and Plan Critical Care: No <Jacob Marc - Last Filed: 03/25/22 23:47> Physician Review: Patient Assessed, Agree with Above Assessment and Plan <Fareed Infante - Last Filed: 03/26/22 06:20>
[2022-03-25 17:51] LABS: Potassium 3.2 mmol/L (3.5-5.1)
[2022-03-25] MEDS: ENOXAPARIN 40 MG/0.4 ML SQ SCH (18:00)
[2022-03-25 18:07] LABS: Magnesium 1.8 mg/dL (1.6-2.4); Phosphorus 2.6 mg/dL (2.5-4.9)
--- NOTE | 2022-03-25 18:11 | CON ---
Date of Consultation: 03/25/2022 Reason For Consultation: Chest pain. History Of Present Illness: This is a 32-year-old male, history of type 1 diabetes, presented to the emergency room because of chest pain on the left side, no radiation. He describes it as burning sen sation, not related to exertion. No shortness of breath. He is usually very weak, found to be in mi ld case of DKA and very high blood glucose. No other complaints. Past Medical History: Diabetes. Medications: Refer to reconciliation sheet for detailed list. Allergies: AMOXICILLIN. Family History: No premature coronary artery disease or cancer. Social History: Does not drink, use any drugs. Review of Systems: All systems reviewed and they were negative except what mentioned in HPI. Physical Examination: Vital Signs: Reviewed. Head and Neck: Pupils are equal, reactive to light. Intact eye movements. No JVD. No cervical lym phadenopathy. Neck is supple. Thyroid is not enlarged. Lungs: Clear to auscultation bilaterally. No rhonchi, wheezing, or crackles. No accessory muscle u se. Heart: Regular rate and rhythm. No extra sounds. Abdomen: Soft, nontender. Bowel sounds positive. No organomegaly. No masses or hernia. No rigidi ty or rebound. Extremities: No edema, clubbing, or cyanosis. Intact pulses. Skin: No rash. Neurologic: Alert, awake, oriented x3. No acute focal deficits appreciated. Investigations: First troponin was 4.7. BUN is 11, creatinine 0.63, glucose was 606 and now down to 318. His CO2 was 19. Assessment And Recommendations: 1.Chest pain. The patient is diabetic, has insulin-dependent diabetes for long time. Recommend hos pitalization and serial cardiac enzymes and obtain an echocardiogram in the morning. Further recomme ndation will follow after the trending troponin and was evaluated. Meanwhile, the patient can take medications by mouth, start him on aspirin 81 mg. If he is n.p.o., can use rectal aspirin 300 mg daily until he is able to take medications by mouth. Keep him on telemetry and trend troponin s. 2.Hyperglycemia with mild case of diabetic ketoacidosis. This is improving. Continue IV hydration. SR/MODL Voice ID: [id number] Report ID: [id number]
[2022-03-25] MEDS ORDERED: INSULIN GLARGINE 100 UNIT/ML SQ ONE ×2 (18:30→18:41)
[2022-03-25] MEDS ORDERED: ENOXAPARIN 40 MG/0.4 ML SQ ONE (18:41)
[2022-03-25 18:42] LABS: Thyroid Stimulating Hormone 0.605 uIU/mL (0.358-3.740)
[2022-03-25] MEDS ORDERED: NS KCL 20MEQ 1,000 ML IV ONE (18:42)
[2022-03-25] MEDS: Ringers Lactate 1,000 ML IV SCH (19:56)
[2022-03-25 20:25] VITALS: O2SAT 97
[2022-03-25] MEDS: INSULIN -REGULAR HUMAN 50 UNIT/0.5 ML ML SQ SCH (21:24)
[2022-03-25 21:59] VITALS: BMI 16.5
[2022-03-26] MEDS: Ringers Lactate 1,000 ML IV SCH (05:03)
[2022-03-26 05:23] LABS: Absolute Lymphocytes (CBC) 1.3 K/uL (0.7-4.9); Hematocrit 33.2 % (39.6-49.0); Lymphocytes % 18.4 % (15.3-44.8); MCV 93.6 fL (80-100); MPV 6.5 fL (7.6-11.3); RBC Red Blood Cell Count 3.55 M/uL (4.33-5.43)
[2022-03-26 05:43] LABS: Magnesium 1.6 mg/dL (1.6-2.4); Phosphorus 2.4 mg/dL (2.5-4.9)
[2022-03-26 06:37] LABS: Potassium 3.1 mmol/L (3.5-5.1)
[2022-03-26] MEDS ORDERED: MAGNESIUM SULFATE 1 gm IVPB 1 GM/100 ML BAG IV ONE (07:00)
[2022-03-26] MEDS ORDERED: POTASSIUM 25 MEQ EFFERV TAB PO ONE (07:01)
--- NOTE | 2022-03-26 07:37 | EKG ---
Test Date: 2022-03-25 Test Time: 13:21:15 Manager Valuation: ULISES MEASUREMENT RESULTS: Intervals: Rate: 100 AL: 146 QRSD: 88 QT: 340 QTc: 438 [place]: P: 69 AL: 146 QRS: 79 T: 57 INTERPRETIVE STATEMENTS: Normal sinus rhythm Possible Left atrial enlargement Nonspecific T wave abnormality Abnormal ECG No previous ECG available for comparison Electronically Signed On 03-26-22 07:35:54 MAILHOUSE OPERATOR by Sergio Saldivar
[2022-03-26] MEDS ORDERED: Magnesium Sulfate 2gm IVPB 2 G/50 ML BAG IV ONE (07:42)
[2022-03-26] MEDS: ENOXAPARIN 40 MG/0.4 ML SQ SCH (07:57)
[2022-03-26] MEDS: POTASS/SODIUM PHOSPHATE 1 PKT POWD.PACK PO SCH ×3 (07:57→10:02)
[2022-03-26] MEDS ORDERED: KCL 20 MEQ/100 mL IVPB 20 MEQ/100 ML BAG IV SCH (08:00)
[2022-03-26] MEDS: INSULIN -REGULAR HUMAN 50 UNIT/0.5 ML ML SQ SCH ×3 (08:01→15:06)
[2022-03-26 13:30] LABS: Magnesium 2.3 mg/dL (1.6-2.4); Phosphorus 3.1 mg/dL (2.5-4.9); Potassium 3.6 mmol/L (3.5-5.1)
[2022-03-26 13:34] VITALS: TEMP 97.7
[2022-03-26] MEDS ORDERED: POTASSIUM CL SA 10 MEQ TAB PO ONE (14:58)
--- NOTE | 2022-03-26 15:54 | P.DS ---
Admission Date: 03/25/22 Discharge Date: 03/26/22 Disposition: ROUTINE DISCHARGE Discharge Condition: GOOD Reason for Admission: Chest pain Consultations: 1. Cardiology Hospital Course: DIAGNOSES: # Mild Diabetic Ketoacidosis in Type I Diabetes Mellitus due to Medication Noncompliance # Atypical Chest Pain # Tobacco Use Disorder HOSPITAL COURSE: Mr. Chinmay Mitchell is a 32 year old male with a past medical history significant for type I diabetes mellitus who was admitted to the [facility] on 03/25/2022 for chest pain, polydipsia, and polyuria. He was admitted to the Medicine service. Upon further evaluation, he was found to have a mild case of diabetic ketoacidosis, for which he was admitted to the intensive care unit, started on IV fluids, and an insulin drip per DKA protocol. His glucose levels and anion gap quickly normalized and he was transitioned to subcutaneous insulin. In regards to his chest pain, his EKG was without STEMI criteria. His troponin trend was 4.7 -> 7.2 -> 7.0. His chest x-ray revealed, "no acute intrathoracic process suspected." Transthoracic echocardiogram was obtained, and per Dr. Elizabeth, it revealed a normal left ventricular ejection fraction (55-60%), normal wall motion, mild mitral regurgitation, and normal diastolic dysfunction. Dr. Elizabeth has cleared him for discharge with an outpati ent cardiac stress test. He does not know his home insulin regimen, so he was started on insulin glargine with moderate control of his glucose levels. He was instructed to check his glucose levels four times daily (once before each meal and once at night). He was instructed to keep these levels recorded in a journal. He was instructed to bring this to his primary care appointment with Dr. Weinstein on 04/01/2022. He verbalized understanding and agreed to monitor his glucose levels and attend this appointment. I have spoken with and updated Dr. Weinstein. On 03/26/2022, he was seen on rounds and deemed medically stable for discharge. He was discharged with instructions to schedule follow-up appointments with his PCP (Dr. Weinstein) and with Cardiology (Dr. Elizabeth). He was provided a prescription for insulin glargine. He and his were given the opportunity to ask questions and reported no further questions. Furthermore, all questions were answered to the best of my ability. A copy of this discharge summary will be sent to the above providers to facilitate continuity of care. Today, I personally spent 35 minutes on his case, of which greater than 50% of the time was spent in patient education, counseling, and coordination of care as described above. Vital Signs/Physical Exam: Temp Pulse Resp BP Pulse Ox 97.7 F 94 H 17 126/91 H 100 03/26/22 12:00 03/26/22 15:00 03/26/22 15:00 03/26/22 15:00 03/26/22 10:00 General: Alert, In no apparent distress, Oriented x3 HEENT: Atraumatic, Mucous membr. moist/pink, Sclerae nonicteric Neck: JVD not distended Respiratory: Clear to auscultation bilaterally, Normal air movement Cardiovascular: No edema, Regular rate/rhythm, Normal S1 S2, No murmurs Gastrointestinal: Soft and benign, Non-distended, No tenderness, No rebound, No guarding Musculoskeletal: No clubbing Integumentary: No rashes Neurological: Normal speech, Normal affect Laboratory Data at Discharge: WBC 7.00 K/uL (4.3-10.9) 03/26/22 04:34 Hgb 11.6 g/dL (13.6-17.9) L D 03/26/22 04:34 Hct 33.2 % (39.6-49.0) L 03/26/22 04:34 Plt Count 327 K/uL (152-406) 03/26/22 04:34 Sodium 135 mmol/L (136-145) L 03/26/22 13:07 Potassium 3.6 mmol/L (3.5-5.1) D 03/26/22 13:07 BUN 4 mg/dL (7-18) L 03/26/22 13:07 Creatinine 0.60 mg/dL (0.70-1.30) L 03/26/22 13:07 Glucose 334 mg/dL (74-106) H 03/26/22 13:07 Phosphorus 3.1 mg/dL (2.5-4.9) 03/26/22 13:07 Magnesium 2.3 mg/dL (1.6-2.4) 03/26/22 13:07 Total Bilirubin 0.4 mg/dL (0.2-1.0) 03/25/22 13:38 AST 9 U/L (15-37) L 03/25/22 13:38 ALT 36 U/L (16-61) 03/25/22 13:38 Alkaline Phosphatase 84 U/L (45-117) 03/25/22 13:38 Lipase 346 U/L (73-393) 03/25/22 13:38 Home Medications: Insulin Glargine,Hum.rec.anlog [Lantus Solostar] 10 unit SQ DAILY #10 ml New Medications: Insulin Glargine,Hum.rec.anlog [Lantus Solostar] 10 unit SQ DAILY #10 ml Physician Discharge Instructions: PROBLEM: DKA GOAL: Clear understanding of disease process INSTRUCTIONS: Follow up with PCP in one week. Follow up with Dr. Elizabeth in one week. Check blood sugar 30 minutes before meals and at night, keep log of readings. Diet: ADA Activity: Ad jaun DME DME: Date Ordered: Name of Company: [employer] Services Needed: Name of Company: Date or Referral: IMMUNIZATION Influenza Vaccine Indicated: No Influenza Vaccine Given: Date Given: Pneumonia Vaccine Indicated: No Pneumonia Vaccine Given: Date Given: Diet: ADA Activity: Ad jaun Followup: Adarsh Weinstein DO [ACTIVE - CAN ADMIT] - Milo Elizabeth MD [ACTIVE - CAN ADMIT] - Time spent managing pt's care (in minutes): 35
[2022-03-26 16:38] VITALS: BP 130/86
--- NOTE | 2022-03-26 18:47 | PN ---
Date of Progress Note: 03/26/2022 Subjective: Seen by bedside. Doing well. No further chest pain. Review of Systems: No chest pain, shortness of breath, orthopnea, cough. No nausea, vomiting, diarrhea. No abdominal p ain. No dysuria, polyuria, or urinary urgency. All other systems reviewed, they are negative. Physical Examination: Vital Signs: Reviewed. Head and Neck: Pupils are equal, reactive to light. Intact eye movements. No JVD. No cervical lym phadenopathy. Neck is supple. Thyroid is not enlarged. Lungs: Clear to auscultation bilaterally. No rhonchi, rales, or crackles. No accessory muscle use. Heart: Regular rate and rhythm. No extra sounds. Abdomen: Soft, nontender. Bowel sounds positive. No organomegaly. No masses or hernia. No rigidi ty or rebound. Extremities: No edema, clubbing, cyanosis. Intact pulses. Skin: No rash or nodules. Neurologic: Alert, awake, oriented x3. No acute focal deficits appreciated. Investigations: BUN 4, creatinine 0.6. Troponins x3 are negative. CO2 level 31. Assessment And Recommendations: 1.Chest pain. Cardiac enzymes are negative. He has risk factors with type 1 diabetes for long time . Recommend outpatient exercise stress test. His ejection fraction on echo was normal. From cardio logy standpoint, patient can be released and follow up as an outpatient for stress test. 2.Diabetic ketoacidosis. This has resolved. Continue current management. Recommend placing the patient on high-dose statin, Lipitor 40 mg at bedtime at the time of discharge. SR/MODL Voice ID: [id number] Report ID: [id number]
--- NOTE | 2022-03-27 08:16 | ECHO ---
HEIGHT: 5 ft 11 in WEIGHT: 118 lb 13.267 oz DATE OF STUDY: 03/26/[address]: Jacob Marc 2-DIMENSIONAL: YES M.MODE: YES DOPPLER: YES COLOR FLOW: YES TDS: PORTABLE: YES DEFINITY: BUBBLE STUDY: DIAGNOSIS: CHEST PAIN CARDIAC HISTORY: CATHERIZATION: NO SURGERY: NO PROSTHETIC VALVE: NO PACEMAKER: NO MEASUREMENTS (cm) DIASTOLIC (NORMALS) SYSTOLIC (NORMALS) IVSd 0.8 (0.6-1.2) LA Diam 3.1 (1.9-4.0) LVEF 67% LVIDd 4.8 (3.5-5.7) LVIDs 3.0 (2.0-3.5) %FS 37% LVPWd 0.8 (0.6-1.2) Ao Diam 2.5 (2.0-3.7) 2 DIMENSIONAL ASSESSMENT: RIGHT ATRIUM: NORMAL LEFT ATRIUM: NORMAL RIGHT VENTRICLE: NORMAL LEFT VENTRICLE: NORMAL TRICUSPID VALVE: TRACE TRICUSPID REGURGITATION MITRAL VALVE: MILD MITRAL REGURGITATION PULMONIC VALVE: NORMAL AORTIC VALVE: NORMAL PERICARDIAL EFFUSION: TRACE AORTIC ROOT: NORMAL LEFT VENTRICULAR WALL MOTION: NORMAL DOPPLER/COLOR FLOW: SEE BELOW COMMENTS: 1. NORMAL LEFT VENTRICULAR EJECTION FRACTION 55-60% 2. NORMAL WALL MOTION 3. MILD MITRAL REGURGITATION 4. NORMAL DIASTOLIC FUNCTION TECHNOLOGIST: JULIUS PIRES
[2022-03-27 08:23] LABS: C.diff Antigen/Toxin Ag neg : Tox neg (NEG : NEG)
== END 2022-03-26 16:20 | disposition home or self-care (01) ==
LOC: ER 12:49 → ERHOLD 16:51 → INTOOBSV 16:51 → 3RD-ICU 19:08
PROVIDERS: ADMIT Internal Medicine; ATTEND Internal Medicine
DX: E10.10 Type 1 diabetes mellitus with ketoacidosis without coma (principal); E10.65 Type 1 diabetes mellitus with hyperglycemia; F17.200 Nicotine dependence, unspecified, uncomplicated; E87.6 Hypokalemia; D63.1 Anemia in chronic kidney disease; N18.9 Chronic kidney disease, unspecified; Z88.1 Allergy status to other antibiotic agents; Z79.4 Long term (current) use of insulin; Z91.14 Patient's other noncompliance with medication regimen
CPT/HCPCS: 93005; 93306; 85025 ×2; 80048 ×4; 36415 ×2; 82010; 83735 ×4; 84100 ×4; 82947 ×8; 80076; 84443; 87324; 83036; 84484 ×3; 84439; 83690; 71045; 82805; 87811; J1815 ×6; J3480 ×2; J1650 ×2; J3475 ×2; J7120 ×2; J7030 ×2; 96361; 96365; 96375; 99285; G0378

== ENCOUNTER 2022-10-19 17:17 | Emergency (ER) | payer SELFPAY ==
--- OUTSIDE RECORDS SUMMARY | 2022-10-19 17:20 | XMS REPORT | Continuity of Care Document ---
:1990 Author Organization [facility] t Address [address] [place] [id number] Care Team Providers Name Role Phone ALAINA PEÑA Attending Clinician Unavailable ANA CASTELLON Attending Clinician Unavailable Payers Payer Name Policy Type Policy Number Effective Date Expiration Date S sergio [facility] 2 [id number] 2022 00:00:00 Problems This patient has no known problems. Allergies, Adverse Reactions, Alerts This patient has no known allergies or adverse reactions. Social History Social Habit Start Date Stop Date Quantity Comments Source Gender identity Aryan hutchinson - External Sexual orientation Aryan Sandersjasper - External Sex Assigned At [birth year] [place] - 00:00:00 00:00:00 External Smoking Status Start Date Stop Date Source Tobacco smoking consumption unknown Aryan Sandersjasper - External Medications This patient has no known medications. Procedures This patient has no known procedures. Encounters Start End Encounter Admission Attending Care Care Encounter Source Date/Time Date/Time Type Type Clinicians Facility Department ID 2022-08-14 2022-08-14 Outpatient ARYAN PEÑA [id number] Aryan 11:15:00 11:15:00 ALAINA Seybol d 2022-07-15 2022-07-15 Outpatient ARYAN CASTELLON [id number] Aryan 08:00:00 08:00:00 ANA pierson 2022-04-01 2022-04-01 Outpatient ARYAN PEÑA [id number] Aryan 09:15:00 09:15:00 ALAINA De Jesusol d Results Test Description Test Time Test Comments Results Result Comments Source COMPREHENSIVE METABOLIC PANEL 2022-07-17 09:19:37 Test Item Value Reference Range Interpretation Comme nts GLUCOSE (test code = 2217) 301 MG/DL 70-99 H BUN (test code = 220) 8 MG/DL 6-20 CREATININE (test code = 0.55 MG/DL 0.60-1.30 L 2213) eGFR (2020 CKD-EPI) (test 125 ML/MIN/1.73 >60 code = 83355) CALC BUN/CREAT (test code = 15 RATIO 6-28 2234) SODIUM (test code = 2230) 138 MEQ/L 133-146 POTASSIUM (test code = 222) 3.7 MEQ/L 3.5-5.4 CHLORIDE (test code = 2214) 96 MEQ/L 95-107 CARBON DIOXIDE (test code = 23 MEQ/L -2205) CALCIUM (test code = 2208) 9.4 MG/DL 8.5-10.5 PROTEIN, TOTAL (test code = 5.7 G/DL 6.1-8.3 L 2228) ALBUMIN (test code = 2200) 3.9 G/DL 3.5-5.2 CALC GLOBULIN (test code = 1.8 G/DL 1.9-3.7 L 2239) CALC A/G RATIO (test code = 2.2 RATIO 1.0-2.6 2233) BILIRUBIN, TOTAL (test code <0.2 MG/DL See_Comment [Automated message] The = 2206) system which ge nerated this result transmit cj reference range : <=1.2. The reference range was not used to interpr et this result as leroy l/abnormal. ALKALINE PHOSPHATASE (test 75 U/L 40-114 code = 2204) AST (test code = 2218) 9 U/L 9-40 ALT (test code = 2219) 12 U/L 5-40 LIPID [id number] 09:19:37 Test Item Value Reference Range Interpretation Comments CHOLESTEROL (test 140 MG/DL <200 code = 2210) TRIGLYCERIDES (test 209 MG/DL <150 H code = 2232) HDL CHOLESTEROL (test 35 MG/DL >39 L code = 2220) CALC LDL CHOL (test 75 MG/DL <100 NOTE: C ALCULATED LDL code = 2237) IS BASED ON PERCY-HOLLINS METHOD WHICHINCLUDES ADJUSTABLE TRIGLYCERIDE:VL DL CHOLESTEROL RAT IO.THIS FACTOR VARIES B Y MEASURED TRIGLY CERIDE AND NON-HDLCHOL ESTEROL CONCENTRATIONS WITH INCREASED CALCU LATED LDL SEENIN HIGH ER TRIGLYCERIDE OR LOWER NON-HDL SPECIME NS. FOR MOREINFORMATION , SEE CLIENT ANNOUNCE MENT AT [email or web address] [email or web address] RATIO LDL/HDL 2.14 RATIO <3.22 (test code = 2238) HEMOGLOBIN [id number] 06:49:19 Test Item Value Reference Range Interpretation Comments HEMOGLOBIN A1c (test 13.9 % 4.2-5.6 H AMERIC AN DIABETES code = 02080) ASSOCIATION IDELINES FOR HGB A1C: PREDIABETES/INC REASED RISK . . . . . . . 5 .7-6.4% DIAGNOSIS OF DI ABETES . . . . . . . . . >=6 .5% WITH CONFIRMATION OR APPROPRIATE SYMPTOMS NOTE: ASSAY MAY BE AFFECTED BY HEMOGLOBINOPATH IES (SICKLE CELL ANEMIA, S- C DISEASE, OTHERS) OR IZABEL FICIALLY LOWERED BY DECR EASED RED CELL SURVIVAL ( HEMOLYTIC ANEMIAS, BLOOD LOSS, ETC.). CONSIDER ALTERN ATE TESTING OR LABORATORY C ONSULTATION. UNLESS OTHERWIS E INDICATED, ALL TESTING PER FORMED AT [facility] [employer], [place]. [address] [place] [id number] LABORATORY DIRE CTOR: DAOWOD MEDRANO M.D. CLIA NUMBER [id number] CAP ACCREDITATION N O. [id number]
[2022-10-19 18:23] LABS: Hematocrit 32.5 % (39.6-49.0); Lymphocytes % 23.5 % (15.3-44.8); MCV 93.2 fL (80-100); MPV 6.3 fL (7.6-11.3); Platelets 513 thou/uL (152-406); RBC Red Blood Cell Count 3.49 M/uL (4.33-5.43)
[2022-10-19] MEDS ORDERED: NA CHLORIDE 0.9% 1,000 ML ONE ×2 (18:27→19:43)
[2022-10-19 18:35] LABS: ALT/SGPT 15 U/L (16-61); AST/SGOT 5 U/L (15-37); Albumin 2.5 g/dL (3.4-5.0); Alkaline Phosphatase 52 U/L (45-117); BUN Blood Urea Nitrogen 8 mg/dL (7-18); Bicarbonate 27 mEq/L (21-32); Bilirubin Total 0.3 mg/dL (0.2-1.0); Glomerular Filtration Rate 123 ml/min (=/>90); Lipase 35 U/L (13-75); Magnesium 1.9 mg/dL (1.6-2.4); Phosphorus 3.4 mg/dL (2.5-4.9); Potassium 2.8 mEq/L (3.5-5.1); Protein, Total 4.5 g/dL (6.4-8.2); Sodium Level 130 mEq/L (136-145)
[2022-10-19 18:36] LABS: Bilirubin Direct < 0.1 mg/dL (0-0.2); Bilirubin Indirect, Calculated ND mg/dL (0.2-0.8)
[2022-10-19 18:42] LABS: Glucose Level 573 mg/dL (74-106)
[2022-10-19] MEDS ORDERED: POTASSIUM 25 MEQ EFFERV TAB ONE (19:42)
[2022-10-19] MEDS ORDERED: INSULIN -REGULAR HUMAN 50 UNIT/0.5 ML ML ONE ×2 (19:42→22:21)
[2022-10-19] MEDS ORDERED: KCL 20 MEQ/100 mL IVPB 100 ML IV ONE (19:43)
[2022-10-19 20:22] LABS: Specific Gravity > 1.030 (1.005-1.030); Urine Bilirubin NEGATIVE (Negative); Urine Blood Negative (Negative); Urine Clarity Clear (Clear); Urine Color Colorless (Yellow); Urine Glucose 4+ (Over) (Negative); Urine Protein NEGATIVE (Negative); Urine Urobilinogen Normal (Normal); Urine pH 6.5 (5.0-7.0)
--- NOTE | 2022-10-19 22:16 | ER ---
Nurse's Notes [facility] Name: Chinmay Mitchell Age: 32 yrs Sex: Male : 1990 Arrival Date: 10/19/2022 Time: 17:17 Bed 15 Private MD: Diagnosis: Type 1 diabetes mellitus with hyperglycemia;Hypokalemia Presentation: 10/19 17:37 Chief complaint: Patient states: Dizziness and lethargy x 2 days. Diarrhea x "a few ss weeks.". Coronavirus screen: Client denies travel out of the [place] in the last 14 days. Ebola Screen: Patient denies exposure to infectious person. Patient denies travel to an Ebola-affected area in the 21 days before illness onset. Initial Sepsis Screen: Does the patient meet any 2 criteria? No. Patient's initial sepsis screen is negative. Does the patient have a suspected source of infection? No. Patient's initial sepsis screen is negative. Risk Assessment: Do you want to hurt yourself or someone else? Patient reports no desire to harm self or others. Onset of symptoms is unknown. 17:37 Method Of Arrival: Ambulatory ss 17:37 Acuity: BROOKE 3 ss Triage Assessment: 18:26 Respiratory: Onset: The symptoms/episode began/occurred at an unknown time. me1 20:15 Respiratory: the patient has moderate shortness of breath. kd3 Historical: - Allergies: 17:46 Amoxicillin; ss - PMHx: 17:46 Diabetes - IDDM; ss - PSHx: 17:46 None; ss - Immunization history:: Client reports having NOT received the Covid vaccine. - Social history:: Smoking status: Patient reports the use of cigarette tobacco products, smokes one pack cigarettes per day. Screenin:24 [facility] ED Fall Risk Assessment (Adult) Score/Fall Risk Level 0 - 2 = Low Risk. Abuse me1 screen: Denies threats or abuse. Nutritional screening: No deficits noted. Tuberculosis screening: No symptoms or risk factors identified. Assessment: 18:22 General: Appears uncomfortable, slender, Behavior is calm, cooperative, appropriate for me1 age. Pain: Denies pain. Neuro: Level of Consciousness is awake, alert, obeys commands, Oriented to person, place, time, situation, Appropriate for age. Cardiovascular: Capillary refill < 3 seconds Patient's skin is warm and dry. Cardiovascular: Rhythm is sinus rhythm. Respiratory: Airway is patent Respiratory effort is even, unlabored, Respiratory pattern is regular, symmetrical. GI: Reports diarrhea, since "for a few weeks now.". 18:24 Respiratory: Breath sounds are clear bilaterally. me1 Vital Signs: 17:37 BP 135 / 84; Pulse 93; Resp 17; Temp 98.4(TE); Pulse Ox 100% on R/A; Weight 54.43 kg; ss Height 5 ft. 11 in. ; Pain 0/10; 18:26 BP 124 / 84; Pulse 89; Resp 8; Pulse Ox 100% on R/A; me1 20:15 BP 129 / 87; Pulse 87; Resp 16; Pulse Ox 100% on R/A; kd3 21:23 BP 124 / 88; Pulse 95; Resp 16; Pulse Ox 100% on R/A; kd3 22:01 BP 94 / 70; Pulse 90; Resp 19; Pulse Ox 100% on R/A; kd3 22:41 BP 131 / 97; Pulse 94; Resp 19; Pulse Ox 100% on R/A; kd3 17:37 Body Mass Index 16.74 (54.43 kg, 180.34 cm) ss 17:37 Pain Scale: Adult ss ED Course: 17:18 Patient arrived in ED. rg4 17:18 Lindsey Lopez PA-C is PHCP. sb4 17:18 Alex Waters MD is Attending Physician. sb4 17:46 Triage completed. ss 17:46 Arm band placed on right wrist. ss 17:53 Angela Espinosa, RTELL is Primary Nurse. me1 18:06 Inserted saline lock: 20 gauge in right antecubital area, using aseptic technique. me1 18:06 Basic Metabolic Panel Sent. me1 18:06 CBC with Diff Sent. me1 18:06 Hepatic Function Sent. me1 18:06 Lipase Sent. me1 18:06 Magnesium Sent. me1 18:06 Phosphorus Sent. me1 18:24 Patient has correct armband on for positive identification. Placed in gown. Bed in low me1 position. Call light in reach. Side rails up X 1. Provided Education on: POC. Verbalized understanding. . 18:24 No provider procedures requiring assistance completed. me1 22:12 IV discontinued, intact, bleeding controlled, No redness/swelling at site. Pressure wm dressing applied. 22:12 Inserted saline lock: 20 gauge in right forearm, using aseptic technique. wm 23:39 IV discontinued, intact, bleeding controlled, No redness/swelling at site. Pressure kd3 dressing applied. Administered Medications: 18:17 Drug: NS 0.9% IV 1000 ml Route: IV; Rate: 1000 ml; Site: right antecubital; me1 23:40 Follow up: IV Status: Completed infusion; IV Intake: 1000ml kd3 20:13 Drug: NS 0.9% IV 1000 ml Route: IV; Rate: 1 bolus; Site: right antecubital; kd3 23:40 Follow up: IV Status: Completed infusion; IV Intake: 1000ml kd3 20:13 Drug: Potassium Chloride IV 20 mEq Route: IV; Rate: calculated rate; Site: right kd3 antecubital; 23:40 Follow up: IV Status: Completed infusion; IV Intake: 100ml kd3 20:13 Drug: Potassium PO Effervescent Tablet 50 mEq Route: PO; kd3 23:40 Follow up: Response: No adverse reaction kd3 20:13 Drug: Insulin Regular Human IVP 10 units {Co-Signature: eh3 (Kelly Singer RN).} Route: kd3 IVP; Site: right antecubital; 23:40 Follow up: Response: No adverse reaction kd3 22:16 Drug: Famotidine IVP 20 mg Route: IVP; Site: right forearm; kd3 23:39 Follow up: Response: No adverse reaction kd3 23:04 Drug: Insulin Regular Human Sub-Q 10 units {Co-Signature: kd3 (Elsi Fry RN).} jb4 Route: Sub-Q; Site: abdomen; 23:39 Follow up: Response: No adverse reaction kd3 Medication: 18:24 VIS not applicable for this client. me1 Point of Care Testing: Blood Glucose: 18:21 Blood Glucose: High (>450 mg/dL); me1 Ranges: Intake: 23:40 IV: 100ml; Total: 100ml. kd3 23:40 IV: 1000ml; Total: 1100ml. kd3 23:40 IV: 1000ml; Total: 2100ml. kd3 Outcome: 22:15 Discharge ordered by . sb4 23:39 Discharged to home ambulatory. kd3 23:39 Condition: stable 23:39 Discharge instructions given to patient, family, Instructed on discharge instructions, follow up and referral plans. Demonstrated understanding of instructions, follow-up care. 23:41 Patient left the ED. kd3 Signatures: Carli Mccoy, RN RN Irma Thorne 4 Justin Bo RN RN jb4 Sophia Gregory Kyli, RN RN kd3 Lindsey Lopez, PA-C PA-C arron4 Angela Espinosa RN RN me1 Kelly Singer RN 3 Elis Fry RN kd3
--- NOTE | 2022-10-19 22:16 | EDPHYS ---
Physician Documentation [facility] Name: Chinmay Mitchell Age: 32 yrs Sex: Male : 1990 Arrival Date: 10/19/2022 Time: 17:17 Bed 15 Private MD: ED Physician Alex Waters HPI: 10/19 17:34 This 32 yrs old Male presents to ER via Unassigned with complaints of Shortness Of sb4 Breath, Dizziness. 17:38 patient with history of type 1 diabetes, significant other states that for the past 2-3 sb4 days he has been dizzy, short of breath, and his blood sugar has been reading "high." patient denies any recent change in his insulin regimen, new medications, infections. Historical: - Allergies: 17:46 Amoxicillin; ss - PMHx: 17:46 Diabetes - IDDM; ss - PSHx: 17:46 None; ss - Immunization history:: Client reports having NOT received the Covid vaccine. - Social history:: Smoking status: Patient reports the use of cigarette tobacco products, smokes one pack cigarettes per day. ROS: 17:38 Constitutional: Negative for fever, chills, and weight loss. sb4 17:38 Respiratory: Positive for shortness of breath. 17:38 Abdomen/GI: Positive for nausea, vomiting, and diarrhea. 17:38 Neuro: Positive for dizziness. 17:38 Endocrine: 17:38 All other systems are negative. Exam: 17:38 Constitutional: This is a well developed, well nourished patient who is awake, alert, sb4 and in no acute distress. Head/Face: Normocephalic, atraumatic. Eyes: Extra-ocular motions intact. Periorbital areas with no swelling, redness, or edema. ENT: Mucous membranes moist. Cardiovascular: Regular rate and rhythm with a normal S1 and S2. Respiratory: Lungs have equal breath sounds bilaterally, clear to auscultation and percussion. No rales, rhonchi or wheezes noted. No increased work of breathing, no retractions or nasal flaring. Abdomen/GI: Soft, non-tender, no distension. Skin: Warm, dry with normal turgor. Normal color with no rashes, no lesions, and no evidence of cellulitis. MS/ Extremity: Pulses equal, no cyanosis. Neurovascular intact. Full, normal range of motion. Neuro: Awake and alert, GCS 15, oriented to person, place, time, and situation. Cranial nerves II-XII grossly intact. Motor strength 5/5 in all extremities. Sensory grossly intact. Cerebellar exam normal. Normal gait. Vital Signs: 17:37 BP 135 / 84; Pulse 93; Resp 17; Temp 98.4(TE); Pulse Ox 100% on R/A; Weight 54.43 kg; ss Height 5 ft. 11 in. ; Pain 0/10; 18:26 BP 124 / 84; Pulse 89; Resp 8; Pulse Ox 100% on R/A; me1 20:15 BP 129 / 87; Pulse 87; Resp 16; Pulse Ox 100% on R/A; kd3 21:23 BP 124 / 88; Pulse 95; Resp 16; Pulse Ox 100% on R/A; kd3 22:01 BP 94 / 70; Pulse 90; Resp 19; Pulse Ox 100% on R/A; kd3 22:41 BP 131 / 97; Pulse 94; Resp 19; Pulse Ox 100% on R/A; kd3 17:37 Body Mass Index 16.74 (54.43 kg, 180.34 cm) ss 17:37 Pain Scale: Adult ss MDM: 17:18 Patient medically screened. sb4 17:38 Differential diagnosis: Anemia DKA, HHS, hyperglycemia, dehydration, sepsis. sb4 20:33 Data reviewed: vital signs, nurses notes, lab test result(s), and as a result, I will sb4 discharge patient. Consideration of Admission/Observation Escalation of care including admission/observation considered. Test considered but Not performed: CT: abdominal CT, not indicated, labs benign, no tenderness. Historians other than the Patient: Spouse/Significant Other: . Care significantly affected by the following chronic conditions: Diabetes. Counseling: I had a detailed discussion with the patient and/or guardian regarding: the historical points, exam findings, and any diagnostic results supporting the discharge/admit diagnosis, lab results, the need for outpatient follow up, endocrinology. Special discussion: I discussed with the patient/guardian in detail that at this point there is no indication for admission to the hospital. It is understood, however, that if the symptoms persist or worsen the patient needs to return immediately for re-evaluation. ED course: patient has appointment with his PCP next week to discuss his insulin regimen. i instructed him to monitor his blood sugar closely and to increase his insulin as needed according to his blood sugar readings. he understands. 10/19 17:30 Order name: Basic Metabolic Panel; Complete Time: 19:02 sb4 10/19 17:30 Order name: CBC with Diff; Complete Time: 18:25 sb4 10/19 17:30 Order name: Hepatic Function; Complete Time: 19:02 sb4 10/19 17:30 Order name: Lipase; Complete Time: 19:02 sb4 10/19 17:30 Order name: Magnesium; Complete Time: 19:02 sb4 10/19 17:30 Order name: Phosphorus; Complete Time: 19:02 sb4 10/19 18:27 Order name: Urinalysis w/ reflexes; Complete Time: 20:22 sb4 10/19 18:33 Order name: Glucose, Ancillary Testing; Complete Time: 18:41 EDMS 12 21:10 Order name: Glucose, Ancillary Testing; Complete Time: 21:20 EDMS 10/19 22:22 Order name: Glucose, Ancillary Testing; Complete Time: 22:37 EDMS 12 23:11 Order name: Glucose, Ancillary Testing; Complete Time: 23:14 EDMS 12 17:30 Order name: EKG; Complete Time: 17:31 sb4 10/19 17:30 Order name: Cardiac monitoring; Complete Time: 17:57 sb4 10/19 17:30 Order name: EKG - Nurse/Tech; Complete Time: 18:17 sb4 10/19 17:30 Order name: IV Saline Lock; Complete Time: 18:06 sb4 10/19 17:30 Order name: NPO; Complete Time: 18:06 sb4 10/19 17:30 Order name: O2 Per Protocol; Complete Time: 17:57 sb4 10/19 17:30 Order name: O2 Sat Monitoring; Complete Time: 17:57 sb4 10/19 17:30 Order name: Accucheck Blood Glucose; Complete Time: 18:21 sb4 EC:16 Rate is 86 beats/min. Rhythm is regular, Normal Sinus Rhythm. [place] interval is normal at sb4 138 msec. QRS interval is normal at 104 msec. QT interval is normal at 378 msec. No Q waves. No ST changes noted. Clinical impression: Normal ECG. Interpreted by me. Reviewed by me. Administered Medications: 18:17 Drug: NS 0.9% IV 1000 ml Route: IV; Rate: 1000 ml; Site: right antecubital; me1 23:40 Follow up: IV Status: Completed infusion; IV Intake: 1000ml kd3 20:13 Drug: NS 0.9% IV 1000 ml Route: IV; Rate: 1 bolus; Site: right antecubital; kd3 23:40 Follow up: IV Status: Completed infusion; IV Intake: 1000ml kd3 20:13 Drug: Potassium Chloride IV 20 mEq Route: IV; Rate: calculated rate; Site: right kd3 antecubital; 23:40 Follow up: IV Status: Completed infusion; IV Intake: 100ml kd3 20:13 Drug: Potassium PO Effervescent Tablet 50 mEq Route: PO; kd3 23:40 Follow up: Response: No adverse reaction kd3 20:13 Drug: Insulin Regular Human IVP 10 units {Co-Signature: eh3 (Kelly Singer RN).} Route: kd3 IVP; Site: right antecubital; 23:40 Follow up: Response: No adverse reaction kd3 22:16 Drug: Famotidine IVP 20 mg Route: IVP; Site: right forearm; kd3 23:39 Follow up: Response: No adverse reaction kd3 23:04 Drug: Insulin Regular Human Sub-Q 10 units {Co-Signature: kd3 (Elis Fry RN).} jb4 Route: Sub-Q; Site: abdomen; 23:39 Follow up: Response: No adverse reaction kd3 Point of Care Testing: Blood Glucose: 18:21 Blood Glucose: High (>450 mg/dL); me1 Ranges: Critical Glucose Levels:Adult <50 mg/dl or >400 mg/dl <40 mg/dl or >180 mg/dl Disposition: 10/20 07:55 Co-signature as Attending Physician, Alex Waters MD I agree with the assessment and kdr plan of care. Disposition Summary: 10/19/22 22:15 Discharge Ordered Location: Home sb4 Problem: an acute exacerbation sb4 Symptoms: have improved sb4 Condition: Stable sb4 Diagnosis - Type 1 diabetes mellitus with hyperglycemia sb4 - Hypokalemia sb4 Followup: sb4 - With: Private Physician - When: 2 - 3 days - Reason: Recheck today's complaints, Continuance of care, Re-evaluation by your physician Discharge Instructions: - Discharge Summary Sheet sb4 - Type 1 Diabetes Mellitus, Diagnosis, Adult sb4 - Potassium Content of Foods sb4 - Hypokalemia sb4 Forms: - Medication Reconciliation Form sb4 - Thank You Letter sb4 - Antibiotic Education sb4 - Prescription Opioid Use sb4 - Patient Portal Instructions sb4 - Leadership Thank You Letter sb4 Signatures: Dispatcher [employer] Alex Polo MD MD [facility] Carli Mccoy, TRELL RN Justin Bo RN RN 4 Elis Fry, RN RN kd3 Lindsey Lopez, PA-C PA-C sb4 Angela Espinosa RN RN me1 Kelly Singer RN 3 Elis Fry RN kd3
[2022-10-19] MEDS ORDERED: FAMOTIDINE 20 MG/2 ML VIAL IV ONE (22:22)
[2022-10-20 00:22] VITALS: TEMP 98.4; O2SAT 100
[2022-10-20 00:27] VITALS: BP 131/97
--- NOTE | 2022-10-20 15:28 | EKG ---
Test Date: 2022-10-19 Test Time: 18:14:14 Supervisor Steno Pool: MEASUREMENT RESULTS: Intervals: Rate: 86 IN: 138 QRSD: 104 QT: 378 QTc: 452 [place]: P: 51 IN: 138 QRS: 91 T: 10 INTERPRETIVE STATEMENTS: Normal sinus rhythm T wave abnormality, consider inferior ischemia Abnormal ECG Compared to ECG 03/25/2022 13:21:15 Possible ischemia now present T-wave abnormality still present Electronically Signed On 10-20-22 15:27:40 CDT by Milo Elizabeth
== END 2022-10-19 23:41 | disposition home or self-care (01) ==
LOC: ER 17:17
DX: E10.65 Type 1 diabetes mellitus with hyperglycemia (principal); E87.6 Hypokalemia
CPT/HCPCS: 36415; 80048; 80076; 81003; 82947; 83690; 83735; 84100; 85025; 93005; 96372; 99284; J1815; J3480; J7030

== ENCOUNTER 2023-04-12 00:02 | Inpatient (IN) | payer SELFPAY ==
--- OUTSIDE RECORDS SUMMARY | 2023-04-12 00:05 | XMS REPORT | Continuity of Care Document ---
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 Name Role Phone ALAINA PEÑA Attending Clinician Unavailable ANA CASTELLON Attending Clinician Unavailab le Payers Payer Name Policy Type Policy Number Effective Date Expirati on Date Source BCBS 2 [id number] 2022 00:00:00 Social History Social Habit Start Date Stop Date Quantity Comments Source Sexual orientation Roni Adams - External Gender identity Carmina Adams - External Sex Assigned At 1990 00:00:00 1990 00:[birth year]:00 Rajani Adams - External Smoking Status Start Date Stop Date Source Tobacco smoking consumption unknown Rajani Adams - External Encounters Start Date/Time End Date/Time Encounter Type Admission Type Attending Clinicians Care Facility Care Department Encounter ID Source 2022-08-14 11:15:00 2022-08-14 11:15:00 Outpatient ALAINA PEÑA [id number] Rajani Adams 2022-07-15 08:00:00 2022-07-15 08:00:00 Outpatient ANA CASTELLON [id number] Rajani Adams 2022-04-01 09:15:00 2022-04-01 09:15:00 Outpatient ALAINA PEÑA [id number] Rajani Adams Results Test Description Test Time Test Comments Results Result Co mments Source COMPREHENSIVE METABOLIC [id number] 09:19:37* Test Item Value Reference Range Interpretation Comme nts GLUCOSE (test code = 2217) 301 MG/DL 70-99 H BUN (test code = 2208) 8 MG/DL 6-20 CREATININE (test code = 2213) 0.55 MG/DL 0.60-1.30 L eGFR (2020 CKD-EPI) (test code = ) 125 ML/MIN/1.73 >60 CALC BUN/CREAT (test code = 2234) 15 RATIO 6-28 SODIUM (test code = 2230) 138 MEQ/L 133-146 POTASSIUM (test code = 2227) 3.7 MEQ/L 3.5-5.4 CHLORIDE (test code = 2214) 96 MEQ/L 95-107 CARBON DIOXIDE (test code = 2205) 23 MEQ/L 19-31 CALCIUM (test code = 2208) 9.4 MG/DL 8.5-10.5 PROTEIN, TOTAL (test code = 2228) 5.7 G/DL 6.1-8.3 L ALBUMIN (test code = 2200) 3.9 G/DL 3.5-5.2 CALC GLOBULIN (test code = 2239) 1.8 G/DL 1.9-3.7 L CALC A/G RATIO (test code = 2233) 2.2 RATIO 1.0-2.6 BILIRUBIN, TOTAL (test code = 2206) <0.2 MG/DL See_Comment [Automated me ssage] The system which generated this result transmitted reference range: <=1.2. The reference range was not used to interpret this result as normal/abnormal. ALKALINE PHOSPHATASE (test code = 220) 75 U/L 40-114 AST (test code = 2217) 9 U/L 9-40 ALT (test code = 2218) 12 U/L 5-40 HEMOGLOBIN [id number] 06:49:19* Test Item Value Reference Range Interpretation Comme nts HEMOGLOBIN A1c (test code = 24716) 13.9 % 4.2-5.6 H [employer] GUIDELINES FOR HGB A1C: PREDIABETES/INCREASED RISK . . . . . . . 5.7-6.4% DIAGNOSIS OF DIABETES . . . . . . . . . >=6.5% WITH CONFIRMATION OR APPROPRIATE SYMPTOMS NOTE: ASSAY MAY BE AFFECTED BY HEMOGLOBINOPATHIES (SICKLE CELL ANEMIA, S-C DISEASE, OTHERS) OR ARTIFICIALLY LOWERED BY DECREASED RED CELL SURVIVAL (HEMOLYTIC ANEMIAS, BLOOD LOSS, ETC.). CONSIDER ALTERNATE TESTING OR LABORATORY CONSULTATION. UNLESS OTHERWISE INDICATED, ALL TESTING PERFORMED AT [facility] [address] [place] [id number] CINDER WORKER: DAWOOD DUARTE M.D. CLIA NUMBER [id number] [facility] [place] [place]. [id number]
[2023-04-12] MEDS ORDERED: ASPIRIN 81 MG CHEWABLE TABLET ONE (00:32)
[2023-04-12 00:44] LABS: Absolute Lymphocytes (CBC) 0.8 K/uL (0.7-4.9); Hematocrit 32.9 % (39.6-49.0); Lymphocytes % 11.2 % (15.3-44.8); MCV 91.2 fL (80-100); MPV 6.8 fL (7.6-11.3); Platelets 415 thou/uL (152-406)
[2023-04-12 00:57] LABS: Magnesium 2.3 mg/dL (1.6-2.4); Potassium 3.3 mEq/L (3.5-5.1)
[2023-04-12] MEDS ORDERED: INSULIN REGULAR (HUMAN) 100 UNIT/ML ONE ×2 (01:30→01:32)
[2023-04-12] MEDS ORDERED: NA CHLORIDE 0.9% 100 ML ONE (01:30)
[2023-04-12] MEDS ORDERED: NA CHLORIDE 0.9% 1,000 ML ONE (01:30)
[2023-04-12] MEDS ORDERED: KCL 20 MEQ/100 mL IVPB 100 ML IV ONE (01:30)
--- NOTE | 2023-04-12 01:38 | ER ---
Nurse's Notes [facility] Name: Chinmay Mitchell Age: 33 yrs Sex: Male : 1990 Arrival Date: 04/12/2023 Time: 00:02 Bed 7 Private MD: Diagnosis: Type 1 diabetes mellitus with hyperglycemia;Chest pain, unspecified Presentation: 04/12 00:18 Chief complaint: Patient states: SUDDEN ONSET OF CHEST PAIN, RIGHT SIDE, RADIATES TO rv RIGHT ARM. DENIES INJURY. TENDER TO TOUCH. Coronavirus screen: At this time, the client does not indicate any symptoms associated with coronavirus-19. Ebola Screen: No symptoms or risks identified at this time. Initial Sepsis Screen: Does the patient meet any 2 criteria? No. Patient's initial sepsis screen is negative. Does the patient have a suspected source of infection? No. Patient's initial sepsis screen is negative. Risk Assessment: Do you want to hurt yourself or someone else? Patient reports no desire to harm self or others. Onset of symptoms was April 12, 2023. 00:18 Method Of Arrival: Ambulatory rv 00:18 Acuity: BROOKE 3 rv Triage Assessment: 00:19 General: Appears comfortable, Behavior is calm, cooperative. Pain: Complains of pain in rv chest. Neuro: Level of Consciousness is awake, alert, obeys commands, Oriented to person, place, time, situation. Cardiovascular: Capillary refill < 3 seconds Patient's skin is warm and dry. Respiratory: Airway is patent Respiratory effort is even, unlabored. GI: No signs and/or symptoms were reported involving the gastrointestinal system. : No signs and/or symptoms were reported regarding the genitourinary system. Derm: Skin is intact. Historical: - Allergies: 00:19 Amoxicillin; rv - PMHx: 00:19 Diabetes - IDDM; rv - Immunization history:: Adult Immunizations unknown. - Social history:: Smoking status: Patient denies any tobacco usage or history of. Screenin:21 [facility] ED Fall Risk Assessment (Adult) History of falling in the last 3 months, rv including since admission No falls in past 3 months (0 pts) Score/Fall Risk Level 0 - 2 = Low Risk Oriented to surroundings, Maintained a safe environment, Educated pt \T\ family on fall prevention, incl call for assistance when getting out of bed, Assessed \T\ reinforced patient's understanding of fall precautions. Abuse screen: Denies threats or abuse. Denies injuries from another. Nutritional screening: No deficits noted. Tuberculosis screening: No symptoms or risk factors identified. Assessment: 01:00 Reassessment: Patient appears in no apparent distress at this time. No changes from km8 previously documented assessment. Patient and/or family updated on plan of care and expected duration. Pain level reassessed. Patient is alert, oriented x 3, equal unlabored respirations, skin warm/dry/pink. 02:00 Reassessment: Patient appears in no apparent distress at this time. No changes from km8 previously documented assessment. Patient and/or family updated on plan of care and expected duration. Pain level reassessed. Patient is alert, oriented x 3, equal unlabored respirations, skin warm/dry/pink. 03:00 Reassessment: Patient appears in no apparent distress at this time. No changes from km8 previously documented assessment. Patient and/or family updated on plan of care and expected duration. Pain level reassessed. Patient is alert, oriented x 3, equal unlabored respirations, skin warm/dry/pink. Vital Signs: 00:18 BP 135 / 99; Pulse 92; Resp 18; Temp 98; Pulse Ox 99% ; Weight 54.43 kg; Height 5 ft. rv 11 in. ; 00:30 BP 139 / 105; Pulse 97; Resp 16; Pulse Ox 99% on R/A; km8 01:00 BP 121 / 88; Pulse 101; Resp 16; Pulse Ox 99% on R/A; km8 02:00 BP 91 / 57; Pulse 101; Resp 16; Pulse Ox 98% on R/A; km8 03:00 BP 94 / 70; Pulse 99; Resp 16; Pulse Ox 98% on R/A; km8 00:18 Body Mass Index 16.74 (54.43 kg, 180.34 cm) rv ED Course: 00:05 Patient arrived in ED. es 00:12 Shahid Almanza is Attending Physician. ci 00:18 Layton Pritchard, TRELL is Primary Nurse. rv 00:19 Triage completed. rv 00:19 Arm band placed on right wrist. rv 00:21 Patient has correct armband on for positive identification. Client placed on continuous rv cardiac and pulse oximetry monitoring. NIBP monitoring applied. air sampling and monitoring on. 00:21 No provider procedures requiring assistance completed. Patient maintains SpO2 rv saturation greater than 95% on room air. 00:33 Inserted saline lock: 20 gauge in right forearm, using aseptic technique. Blood 8 collected. 00:59 XRAY Chest (1 view) In Process Unspecified. EDMS 01:36 Jerry Serrano MD is Hospitalizing Provider. ci 01:45 Inserted saline lock: 20 gauge in left forearm, using aseptic technique. 8 03:45 Provided Education on: admission process. 8 03:45 Patient admitted, IV remains in place. km8 Administered Medications: 04:06 Discontinued: Insulin Drip - (insulin regular human ivp 100 units, ns 0.9% 100 ml) IV rv at calculated rate continuous; Standard concentration 1unit/ml; Dose for DKA is 0.1 units/kg/hr 00:33 Drug: Aspirin PO Chewable Tablet 324 mg PO once; 81 mg tablets x 4 Route: PO; 8 03:43 Follow up: Response: No adverse reaction 8 01:46 Drug: NS 0.9% IV 1000 ml IV at 1000 ml once Route: IV; Rate: 1000 ml; Site: right [facility] forearm; 04:07 Follow up: IV Status: Completed infusion; IV Intake: 1000ml rv 01:46 Drug: Insulin Drip - (Insulin Regular Human IVP 100 units, NS 0.9% IV 100 ml) IV at 8 calculated rate continuous; Standard concentration 1unit/ml; Dose for DKA is 0.1 units/kg/hr {Co-Signature: rv2 (GIANA Pritchard, Amari CAI).} Route: IV; Rate: calculated rate; Site: left forearm; 04:06 Follow up: IV Status: Order to discontinue infusion; pre Dr. Serrano [facility] 04:06 Follow up: IV Status: Order to discontinue infusion rv 01:46 Drug: Potassium Chloride IV 20 mEq IV at calculated rate once; administer over 1-2 km8 hours Route: IV; Rate: calculated rate; Site: right forearm; 03:44 Follow up: IV Status: Completed infusion [facility] 01:47 Drug: Insulin Regular Human IVP 10 units IVP once {Co-Signature: rv2 (GIANA Pritchard, [facility] Amari CAI).} Route: IVP; Site: left forearm; 03:44 Follow up: Response: No adverse reaction; Blood sugar is lowered km8 04:06 Drug: NS 0.9% IV 1000 ml IV at 1000 ml once Route: IV; Rate: 1000 ml; Site: left rv forearm; Medication: 00:21 VIS not applicable for this client. rv Intake: 04:07 IV: 1000ml; Total: 1000ml. rv Outcome: 01:37 Decision to Hospitalize by Provider. ci 03:46 Admitted to ER Hold. Please see [facility] for further documentation. km8 03:46 Condition: stable 03:46 Instructed on the need for admit, Demonstrated understanding of instructions, 05:04 Patient left the ED. rv Signatures: Dispatcher [employer] EDLin Cui Ronaldo RN RN rv Shahid Almanza Katie, RN RN km8 GIANA Pritchard, Amari CAI rv2 Corrections: (The following items were deleted from the chart) 04:09 04:00 Reassessment: Patient appears in no apparent distress at this time. No changes km8 from previously documented assessment. Patient and/or family updated on plan of care and expected duration. Pain level reassessed. Patient is alert, oriented x 3, equal unlabored respirations, skin warm/dry/pink. km8
--- NOTE | 2023-04-12 01:38 | EDPHYS ---
Physician Documentation [facility] Name: Chinmay Mitchell Age: 33 yrs Sex: Male : 1990 Arrival Date: 04/12/2023 Time: 00:02 Bed 7 Private MD: ED Physician Shahid Almanza HPI: 04/12 00:20 This 33 yrs old Male presents to ER via Ambulatory with complaints of Chest Pain. ci 00:20 Patient is a 33-year-old male with PMH insulin-dependent diabetes who presents with ci right-sided chest pain that began prior to arrival. Pain is sharp, radiates into the right arm and causes tingling of the right arm. No associated shortness of breath, diaphoresis, nausea/vomiting, palpitations. No aggravating or relieving factors. Denies previous episodes of chest pain. Patient was just sitting prior to chest pain onset. Patient does smoke but denies EtOH use endorses tobacco use, denies EtOH use. Denies prolonged immobility, recent travels. No history of PE/DVT.. Historical: - Allergies: 00:19 Amoxicillin; rv - PMHx: 00:19 Diabetes - IDDM; rv - Immunization history:: Adult Immunizations unknown. - Social history:: Smoking status: Patient denies any tobacco usage or history of. Vital Signs: 00:18 BP 135 / 99; Pulse 92; Resp 18; Temp 98; Pulse Ox 99% ; Weight 54.43 kg; Height 5 ft. rv 11 in. ; 00:30 BP 139 / 105; Pulse 97; Resp 16; Pulse Ox 99% on R/A; km8 01:00 BP 121 / 88; Pulse 101; Resp 16; Pulse Ox 99% on R/A; km8 02:00 BP 91 / 57; Pulse 101; Resp 16; Pulse Ox 98% on R/A; km8 03:00 BP 94 / 70; Pulse 99; Resp 16; Pulse Ox 98% on R/A; km8 00:18 Body Mass Index 16.74 (54.43 kg, 180.34 cm) rv MDM: 00:12 Patient medically screened. ci 04/12 00:12 Order name: Basic Metabolic Panel; Complete Time: 01:21 ci 04/12 01:22 Interpretation: GLUC 847; K 3.3. ci 04/12 00:12 Order name: CBC with Diff; Complete Time: 01:21 ci 04/12 00:12 Order name: Magnesium; Complete Time: 01:21 ci 04/12 00:12 Order name: NT PRO-BNP; Complete Time: 01:21 ci 04/12 00:12 Order name: Troponin HS; Complete Time: 01:21 ci 04/12 01:24 Order name: ABG ci 04/12 01:49 Order name: Osmolality, Serum ci 04/12 02:43 Order name: Urinalysis w/ reflexes EDMS 04/12 02:43 Order name: CBC with Automated Diff EDMS 04/12 02:43 Order name: CBC with Automated Diff EDMS 04/12 02:43 Order name: Comprehensive Metabolic Panel EDMS 04/12 02:43 Order name: Comprehensive Metabolic Panel EDMS 04/12 02:43 Order name: Magnesium EDMS 04/12 02:43 Order name: Magnesium EDMS 04/12 02:43 Order name: Phosphorus EDMS 04/12 02:43 Order name: Phosphorus EDMS 04/12 02:43 Order name: Troponin High Sensitivity EDMS 04/12 02:43 Order name: Troponin High Sensitivity EDMS 04/12 02:43 Order name: Troponin High Sensitivity EDMS 04/12 02:43 Order name: Troponin High Sensitivity EDMS / 02:44 Order name: BMP ci 04/12 02:44 Order name: Glucose: Glucose q1hr ci 04/12 03:06 Order name: Glucose, Ancillary Testing EDMS 04/12 00:12 Order name: XRAY Chest (1 view) ci 04/12 00:12 Order name: EKG; Complete Time: 00:13 ci 04/12 00:12 Order name: Cardiac monitoring; Complete Time: 00:24 ci 04/12 00:12 Order name: EKG - Nurse/Tech; Complete Time: 00:24 ci 04/12 00:12 Order name: IV Saline Lock; Complete Time: 00:33 ci 04/12 00:12 Order name: Labs collected and sent; Complete Time: 00:33 ci 04/12 00:12 Order name: O2 Per Protocol; Complete Time: 00:24 ci 04/12 00:12 Order name: O2 Sat Monitoring; Complete Time: 00:24 ci 04/12 02:44 Order name: Glucose Level; Complete Time: 02:47 ci Administered Medications: 04:06 Discontinued: Insulin Drip - (insulin regular human ivp 100 units, ns 0.9% 100 ml) IV rv at calculated rate continuous; Standard concentration 1unit/ml; Dose for DKA is 0.1 units/kg/hr 00:33 Drug: Aspirin PO Chewable Tablet 324 mg PO once; 81 mg tablets x 4 Route: PO; km8 03:43 Follow up: Response: No adverse reaction 8 01:46 Drug: NS 0.9% IV 1000 ml IV at 1000 ml once Route: IV; Rate: 1000 ml; Site: right [facility] forearm; 04:07 Follow up: IV Status: Completed infusion; IV Intake: 1000ml rv 01:46 Drug: Insulin Drip - (Insulin Regular Human IVP 100 units, NS 0.9% IV 100 ml) IV at km8 calculated rate continuous; Standard concentration 1unit/ml; Dose for DKA is 0.1 units/kg/hr {Co-Signature: [email or web address] (GIANA Pritchard, Amari CAI).} Route: IV; Rate: calculated rate; Site: left forearm; 04:06 Follow up: IV Status: Order to discontinue infusion; pre Dr. Palaciosun 04:06 Follow up: IV Status: Order to discontinue infusion rv 01:46 Drug: Potassium Chloride IV 20 mEq IV at calculated rate once; administer over 1-2 km8 hours Route: IV; Rate: calculated rate; Site: right forearm; 03:44 Follow up: IV Status: Completed infusion 01:47 Drug: Insulin Regular Human IVP 10 units IVP once {Co-Signature: [email or web address] (GIANA Pritchard, km8 Amari CAI).} Route: IVP; Site: left forearm; 03:44 Follow up: Response: No adverse reaction; Blood sugar is lowered 04:06 Drug: NS 0.9% IV 1000 ml IV at 1000 ml once Route: IV; Rate: 1000 ml; Site: left rv forearm; Disposition: 01:35 Critical Care:. ci Disposition Summary: 04/12/23 01:37 Hospitalization Ordered Notes: Hospitalization Status: Inpatient Admission ci Provider: Jerry Serrano Condition: Critical ci Problem: an acute exacerbation ci Symptoms: have worsened ci Bed/Room Type: Standard ci Location: Telemetry/MedSurg (Inpatient)(04/12/23 04:50) ty Room Assignment: 431(04/12/23 04:50) ty Diagnosis - Type 1 diabetes mellitus with hyperglycemia ci - Chest pain, unspecified ci Forms: - Medication Reconciliation Form ci - SBAR form ci - Leadership Thank You Letter ci Critical care time excluding procedures: 01:35 Critical care time: Bedside Care: 35 minutes. Total time: 35 minutes ci Signatures: Dispatcher [employer] Nelsy Sifuentes RN RN cg Vicente, Ronaldo RN RN rv Shahid Almanza ci Radhika Walters RN RN km8 Tim Hopkins RNII, Ron RN rv2 Corrections: (The following items were deleted from the chart) 02:18 01:37 Intensive Care Unit ci cg 02:18 01:37 ci cg 04:50 02:18 BR ER HOLD cg ty 04:50 02:18 ERHOLD- cg ty 05:04 01:24 BETA HYDROXYBUTYRATE+C.LAB.BRZ ordered. ci rv
[2023-04-12 01:44] LABS: Arterial Blood Carboxyhemoglob 4.6 % (0-1.5); Blood Gas Oxyhemoglobin 90.6 % (94-97); Blood O2 Saturation 96.7 % (92-98.5)
--- NOTE | 2023-04-12 02:37 | P.HP ---
Certification for Inpatient Patient admitted to: Inpatient With expected LOS: >2 Midnights Practitioner: I am a practitioner with admitting privileges, knowledge of patient current condition, hospital course, and medical plan of care. Services: Services provided to patient in accordance with Admission requirements found in Title 42 Section 412.3 of the Code of Federal Regulations Patient History Date of Service: 04/12/23 Reason for admission: Hyperglycemia, chest pain. History of Present Illness: 33-year-old male patient with medical history significant for insulin-dependent diabetes and anxiety disorder was evaluated for episode of chest pain and feeling unwell. He had no use his insulin for about a week and for unknown reason is stated. He came to the ED because began to have episode of weakness and chest pain. In the ED labs done revealed elevated glucose of over 800 and initial troponin was negative. ABG showed no significant acidemia and this basic metabolic panel did not show significant anion gap. He was started on insulin therapy and was admitted for inpatient care. Allergies amoxicillin Allergy (Verified 06/11/22 11:14) Unknown Home Medications: Insulin Glargine,Hum.rec.anlog [Lantus Solostar] 10 unit SQ DAILY #10 ml 03/26/22 - Past Medical/Surgical History Diabetic: Yes -: Type 1 diabetes mellitus -: Nicotine dependence -: None Psychosocial/ Personal History: , lives at home with - Family History Father -: Diabetes - Social History Alcohol use: No CD- Drugs: No Caffeine use: Yes Review of Systems General: Weakness, Malaise Eyes: Unremarkable ENT: Unremarkable Respiratory: Unremarkable Cardiovascular: Chest Pain Gastrointestinal: Unremarkable Genitourinary: Unremarkable Musculoskeletal: Unremarkable Integumentary: Unremarkable Neurological: Unremarkable Lymphatics: Unremarkable Physical Examination - Physical Exam General: Alert, Oriented x3, Cachectic HEENT: Atraumatic, Normocephalic Respiratory: Normal air movement Cardiovascular: Regular rate/rhythm, Normal S1 S2 Gastrointestinal: Soft and benign Musculoskeletal: No swelling Neurological: Normal speech, Normal strength at 5/5 x4 extr - Studies Laboratory Data (last 24 hrs) 04/12/23 04/12/23 00:31 00:31 WBC 7.40 Hgb 10.9 L Hct 32.9 L Plt Count 415 H Sodium 126 L Potassium 3.3 L BUN 8 Creatinine 0.83 Glucose 847 H* Magnesium 2.3 Assessment and Plan - Plan Poorly controlled diabetes type 1: Elevated glucose of over 800 noted. Insulin therapy has been started. Hydration with IV isotonic fluid with normal saline has been also started. Will monitor trend of blood glucose. Will continue on carb restricted diet. Will continue long-acting insulin of Lantus and sliding scale insulin for additional control. Chest pain: Concerns for ACS entertained. Will trend troponin Continue to monitor on telemetry. Malnutritionmoderately severe: Deemed due to protein/calorie related issues. Patient does have significantly reduced BMI of 16.6. Will have core machine operator evaluate. Prophylaxis: Lovenox for DVT prophylaxis CODE STATUS: Full code Disposition: We will treat his poorly controlled blood glucose and have him discharged once his deemed clinically stable. - Advance Directives Does patient have a Living Will: No Does patient have a Durable POA for Healthcare: Yes
[2023-04-12] MEDS ORDERED: ONDANSETRON 4 MG/2 ML VIAL IV PRN (02:38)
[2023-04-12] MEDS ORDERED: MAGNESIUM HYDROXIDE 8% 30 ML PO PRN (02:38)
[2023-04-12] MEDS ORDERED: ACETAMINOPHEN 325 MG TABLET PO PRN (02:38)
[2023-04-12] MEDS: NA CHLORIDE 0.9% 1,000 ML IV SCH (03:00)
[2023-04-12 04:02] VITALS: BMI 16.6
[2023-04-12] MEDS: INSULIN REGULAR (HUMAN) 100 UNIT/ML ONE (05:29)
[2023-04-12 05:30] LABS: Potassium 2.9 mEq/L (3.5-5.1)
[2023-04-12] MEDS: INSULIN REGULAR (HUMAN) 100 UNIT/ML SQ SCH (05:33)
[2023-04-12] MEDS ORDERED: GLUCAGON 1 MG/VIAL IM PRN (07:43)
[2023-04-12] MEDS ORDERED: D10W 250 ML BAG IV PRN (07:43)
[2023-04-12] MEDS: INSULIN LISPRO 100 UNIT/ML SQ SCH (08:30)
[2023-04-12] MEDS: INSULIN GLARGINE 100 UNIT/ML SQ SCH (08:31)
[2023-04-12] MEDS: ENOXAPARIN 40 MG/0.4 ML SQ SCH (08:46)
[2023-04-12] MEDS ORDERED: INSULIN GLARGINE 100 UNIT/ML SQ SCH (09:00)
--- NOTE | 2023-04-12 09:36 | P.PN ---
Subjective Date of Service: 04/12/23 Chief Complaint: Hyperglycemia, chest pain. Pt is resting comfortably in bed. His blood sugar is improving, 464 <- 800. Anion gap is 11. Will continue lantus and lispro. No other complaints. Review of Systems Unremarkable General: Other (cachectic), Unremarkable Eyes: Unremarkable ENT: Unremarkable Respiratory: Unremarkable Cardiovascular: Unremarkable Gastrointestinal: Unremarkable Genitourinary: Unremarkable Musculoskeletal: Unremarkable Integumentary: Unremarkable Neurological: Unremarkable Lymphatics: Unremarkable Physical Examination - Vital Signs Temperature: 98 F Blood Pressure: 94/70 Pulse: 99 Respirations: 16 Pulse Ox (%): 98 - Physical Exam General: Alert, In no apparent distress, Oriented x3, Cachectic HEENT: Atraumatic, Normocephalic, PERRLA Neck: Supple, 2+ carotid pulse no bruit Respiratory: Clear to auscultation bilaterally, Normal air movement Cardiovascular: No edema, Normal pulses, Regular rate/rhythm, Normal S1 S2 Capillary refill: <2 Seconds Gastrointestinal: Normal bowel sounds, Soft and benign, Non-distended Musculoskeletal: No clubbing, No swelling Integumentary: No rashes, No breakdown, No significant lesion Neurological: Normal speech, Normal strength at 5/5 x4 extr, Normal tone, Sensation intact, Cranial nerves 3-12 intact Lymphatics: No axilla or inguinal lymphadenopathy - Studies Laboratory Data (last 24 hrs) 04/12/23 04/12/23 00:31 00:31 WBC 7.40 Hgb 10.9 L Hct 32.9 L Plt Count 415 H Sodium 126 L Potassium 3.3 L BUN 8 Creatinine 0.83 Glucose 847 H* Magnesium 2.3 Assessment And Plan - Plan Poorly controlled diabetes type 1: Pt presented with blood sugar of 88, now 464. AG is 11. Will continue accuchek, SSi, lantus 18u daily, lispro 6u with meal and ADA diet. Pt stopped taking his levemir 20u daily at home. I encouraged him to be compliant. Chest pain: Will r/o ACS. troponin is 4 -> 4.1. BMP is 32. Will continue DAVID therapy. Will trend troponin Q6h and consult cardiology. Will check lipid panel Hypotension: Will bolus IVF. Monitor BP. Severe malnutrition: Pt was encouraged to eat. BMI is 16.6. Consulted Wealth Management Consultant. DVT ppx: Lovenox Code: Full code Disposition: Pending hospital course.
[2023-04-12] MEDS ORDERED: NITROGLYCERIN 0.4 MG/TAB SL PRN (09:37)
[2023-04-12] MEDS ORDERED: MORPHINE 2 MG/ML SYR IV PRN (09:37)
[2023-04-12] MEDS: NA CHLORIDE 0.9% 1,000 ML IV ONE (09:47)
[2023-04-12] MEDS: KCL 20 MEQ/100 mL IVPB 20 MEQ/100 ML BAG IV SCH (10:56)
[2023-04-12] MEDS: POTASSIUM 25 MEQ EFFERV TAB PO ONE (12:57)
--- NOTE | 2023-04-12 22:08 | RAD REPORT ---
EXAM DESCRIPTION: XR Chest 1 View AP CLINICAL HISTORY: Chest Pain COMPARISON: None. TECHNIQUE: Chest 1 View AP FINDINGS: Trachea midline. Heart size and pulmonary vessels within normal limits. Lungs clear without evidence of consolidation, mass, or significant pulmonary edema. No significant pleural effusion or pneumothorax. Bones unremarkable. IMPRESSION: Unremarkable chest radiograph. Electronically signed by: Fuad Todd MD 04/12/2023 01:07 AM ELECTRONIC INSTRUMENT TRADES WORKER Due to temporary technical issues with the PACS/Fluency reporting system, reports are being signed by the in house radiologists without review as a courtesy to insure prompt reporting. The interpreting radiologist is fully responsible for the content of the report.
[2023-04-13 06:53] LABS: Hematocrit 26.3 % (39.6-49.0); Lymphocytes % 13.7 % (15.3-44.8); MCV 89.5 fL (80-100); MPV 6.7 fL (7.6-11.3); Platelets 278 thou/uL (152-406); RBC Red Blood Cell Count 2.94 M/uL (4.33-5.43)
[2023-04-13 07:02] LABS: Albumin 2.2 g/dL (3.4-5.0); Bilirubin Total 0.2 mg/dL (0.2-1.0); Magnesium 1.7 mg/dL (1.6-2.4); Protein, Total 5.3 g/dL (6.4-8.2)
[2023-04-13] MEDS: Magnesium Sulfate 2gm IVPB 2 G/50 ML BAG IV ONE (08:45)
[2023-04-13] MEDS: POTASSIUM CL SA 10 MEQ TAB PO SCH (08:46)
[2023-04-13] MEDS: ASPIRIN 81 MG CHEWABLE TABLET PO SCH (08:46)
[2023-04-13] MEDS ORDERED: MAGNESIUM SULFATE 1 gm IVPB 1 GM/100 ML BAG IV ONE (09:00)
[2023-04-13] MEDS ORDERED: POTASSIUM CL SA 10 MEQ TAB PO ONE (09:00)
[2023-04-13] MEDS ORDERED: POTASS/SODIUM PHOSPHATE 1 PKT POWD.PACK PO SCH (09:00)
--- NOTE | 2023-04-13 10:04 | P.PN ---
Subjective Date of Service: 04/13/23 Chief Complaint: Hyperglycemia, chest pain. Pt is resting comfortably in bed. His blood sugar is improving, 199<- 464 <- 800. Anion gap is 11. Will continue lantus and lispro. No other complaints. Review of Systems Unremarkable General: Unremarkable Eyes: Unremarkable ENT: Unremarkable Respiratory: Unremarkable Cardiovascular: Unremarkable Gastrointestinal: Unremarkable Genitourinary: Unremarkable Musculoskeletal: Unremarkable Integumentary: Unremarkable Neurological: Unremarkable Lymphatics: Unremarkable Physical Examination - Vital Signs Temperature: 98.5 F Blood Pressure: 100/56 Pulse: 97 Respirations: 16 Pulse Ox (%): 99 - Physical Exam General: Alert, In no apparent distress, Oriented x3 HEENT: Atraumatic, Normocephalic, PERRLA Neck: Supple, 2+ carotid pulse no bruit Respiratory: Clear to auscultation bilaterally, Normal air movement Cardiovascular: No edema, Normal pulses, Regular rate/rhythm, Normal S1 S2 Capillary refill: <2 Seconds Gastrointestinal: Normal bowel sounds, Soft and benign, Non-distended Musculoskeletal: No clubbing, No swelling Integumentary: No rashes, No breakdown Neurological: Normal gait, Normal speech, Normal strength at 5/5 x4 extr, Normal tone, Sensation intact, Cranial nerves 3-12 intact Lymphatics: No axilla or inguinal lymphadenopathy Assessment And Plan - Plan Poorly controlled diabetes type 1: Pt presented with blood sugar of 800, now 199 <- 464. AG is 11. Will continue accuchek, SSi, lantus 18u daily, lispro 6u with meal and ADA diet. Pt stopped taking his levemir 20u daily at home. I encouraged him to be compliant. Chest pain: Will r/o ACS. troponin is 4 -> 4.1. BMP is 32. Will continue DAVID therapy. Will trend troponin Q6h and consult cardiology. Lipid panel is within Hypotension: s/p bolus of 1L IVF. Monitor BP. Hypokalemia: K is 3.0. Will replete. mag is 1.7 Hypomagnesemia: Mag is 1.7. Will replete and monitor. Anemia: Hgb is 9.0. Will monitor H/H. Severe malnutrition: Pt was encouraged to eat. BMI is 16.6. Consulted Server Developer. DVT ppx: Lovenox Code: Full code Disposition: Pending hospital course.
[2023-04-13] MEDS: NA CHLORIDE 0.9% 1,000 ML IV ONE (11:05)
[2023-04-13] MEDS: NA CHLORIDE 0.9% 500 ML IV ONE (13:29)
[2023-04-13] MEDS: MIDODRINE HCL 5 MG TABLET PO SCH (14:19)
[2023-04-14 07:26] LABS: Absolute Lymphocytes (CBC) 0.8 K/uL (0.7-4.9); Hematocrit 27.6 % (39.6-49.0); Lymphocytes % 10.8 % (15.3-44.8); MCV 90.4 fL (80-100); MPV 6.8 fL (7.6-11.3); Platelets 300 thou/uL (152-406); RBC Red Blood Cell Count 3.06 M/uL (4.33-5.43)
[2023-04-14 07:29] LABS: Magnesium 1.9 mg/dL (1.6-2.4); Potassium 3.7 mEq/L (3.5-5.1)
[2023-04-14] MEDS: INSULIN LISPRO 100 UNIT/ML SQ SCH (09:19)
[2023-04-14] MEDS: POTASSIUM CL SA 10 MEQ TAB PO ONE (09:20)
[2023-04-14] MEDS: NA CHLORIDE 0.9% 1,000 ML IV ONE (09:21)
[2023-04-14] MEDS: POTASS/SODIUM PHOSPHATE 1 PKT POWD.PACK PO ONE (09:21)
[2023-04-14 09:30] VITALS: BP 112/66; TEMP 98.6
[2023-04-14] MEDS: INSULIN GLARGINE 100 UNIT/ML SQ SCH (10:16)
--- NOTE | 2023-04-14 11:00 | P.DS ---
Admission Date: 04/12/23 Discharge Date: 04/14/23 Disposition: ROUTINE DISCHARGE Discharge Condition: FAIR Reason for Admission: Hyperglycemia, chest pain. Brief History of Present Illness: - Physical Exam General: Alert, In no apparent distress, Oriented x3 HEENT: Atraumatic, Normocephalic, PERRLA Neck: Supple, 2+ carotid pulse no bruit Respiratory: Clear to auscultation bilaterally, Normal air movement Cardiovascular: No edema, Normal pulses, Regular rate/rhythm, Normal S1 S2 Capillary refill: <2 Seconds Gastrointestinal: Normal bowel sounds, Soft and benign, Non-distended Musculoskeletal: No clubbing, No swelling Integumentary: No rashes, No breakdown Neurological: Normal gait, Normal speech, Normal strength at 5/5 x4 extr, Normal tone, Sensation intact, Cranial nerves 3-12 intact Lymphatics: No axilla or inguinal lymphadenopathy Hospital Course: 33-year-old male patient presented with hyperglycemia. He has Past medical history of type 1 diabetes, reports being out of his insulin. Was noted to have . Was treated with IV, Subcutaneous insulin. Condition improved with IV fluids, and insulin. Elevated glucose of over 800 on admission Insulin therapy has been started. Hydration with IV isotonic fluid with normal saline has been also started. blood glucose monitoring, with Will carb restricted diet. Stable for discharge to home with follow-up appointment with primary care physician. PROBLEM: Poorly controlled diabetes type 1: significantly reduced BMI of 16.6 protein malnutrition Continue home medicines as previously prescribed refill home long acting insulin, and 70/30 insulin TID GOAL: Clear understanding of disease process INSTRUCTIONS: Physician Discharge Instructions: -DC IV and DC home -Follow-up with PCP in 1 to 2 weeks, call if any questions regarding hospital stay -Please call nursing station at [phone] if any nursing or medication questions -Return to the emergency room if symptoms worsen Diet: ADA, low sodium Activity: Fall precautions DME: Date Ordered: Name of Company: [employer] Services Needed: None Date or Referral: IMMUNIZATION Influenza Vaccine Indicated: Influenza Vaccine Given: Date Given: Pneumonia Vaccine Indicated: Pneumonia Vaccine Given: Date Given: Vital Signs/Physical Exam: Temp Pulse Resp BP Pulse Ox 98.6 F 94 H 17 112/66 96 04/14/23 08:00 04/14/23 08:00 04/14/23 08:00 04/14/23 08:00 04/14/23 08:00 Laboratory Data at Discharge: WBC 7.40 thou/uL (4.3-10.9) 04/14/23 06:57 Hgb 9.3 g/dL (13.6-17.9) L 04/14/23 06:57 Hct 27.6 % (39.6-49.0) L 04/14/23 06:57 Plt Count 300 thou/uL (152-406) 04/14/23 06:57 Sodium 133 mEq/L (136-145) L 04/14/23 06:57 Potassium 3.7 mEq/L (3.5-5.1) 04/14/23 06:57 BUN 8 mg/dL (7-18) 04/14/23 06:57 Creatinine 0.41 mg/dL (0.70-1.30) L 04/14/23 06:57 Glucose 240 mg/dL (74-106) H 04/14/23 06:57 Phosphorus 2.0 mg/dL (2.5-4.9) L 04/14/23 06:57 Magnesium 1.9 mg/dL (1.6-2.4) 04/14/23 06:57 Total Bilirubin 0.2 mg/dL (0.2-1.0) 04/13/23 06:12 AST 9 U/L (15-37) L 04/13/23 06:12 ALT 18 U/L (16-61) 04/13/23 06:12 Alkaline Phosphatase 78 U/L (45-117) 04/13/23 06:12 Triglycerides 84 mg/dL (<150) 04/12/23 08:32 Cholesterol 123 mg/dL (<200) 04/12/23 08:32 HDL Cholesterol 51 mg/dL (40-60) 04/12/23 08:32 Cholesterol/HDL Ratio 2.41 04/12/23 08:32 Home Medications: Insulin Detemir [Levemir] 30 units SQ BEDTIME 04/12/23 Diet: ADA Activity: Fall precautions Followup: NONE,NONE [Primary Care Provider] - Time spent managing pt's care (in minutes): 55
[2023-04-14 11:18] VITALS: O2SAT 96
--- NOTE | 2023-04-14 11:46 | P.DS ---
Admission Date: 04/12/23 Discharge Date: 04/14/23 Disposition: ROUTINE DISCHARGE Discharge Condition: GOOD Reason for Admission: Hyperglycemia, chest pain. Brief History of Present Illness: 33-year-old male patient with medical history significant for insulin-dependent diabetes and anxiety disorder was evaluated for episode of chest pain and feeling unwell. He had no use his insulin for about a week and for unknown reason is stated. He came to the ED because began to have episode of weakness and chest pain. In the ED labs done revealed elevated glucose of over 800 and initial troponin was negative. ABG showed no significant acidemia and this basic metabolic panel did not show significant anion gap. He was started on insulin therapy and was admitted for inpatient care. Hospital Course: Pt is a 33 yo male with past medical history of DM II and anxiety who presented with chest pain and feeling unwell. He stopped using his insulin about 1 week ago fo unknown reasons. On admission, lab studies showed elevated glucose of over 800 and initial troponin was negative. ABG showed no significant acidemia and this basic metabolic panel did not show significant anion gap. We admitted him for hyperglycemia and started lantus 18u qhs , lispro 6u TID meal, accuchek and ADA diet. We advised pt to take levemir 20u BID. Troponin was negative ax 3 and chest pain resolved. We repleted potassium and magnesium. Pt was advised to eat more. We consulted the .net programmer due to severe malnutrition (BMI 16.6). We gave IVF for hypotension. Cortisol was 11.96. His BP improved and pt requested to be discharged. Pt was in NAD prior to discharge. Vital Signs/Physical Exam: Temp Pulse Resp BP Pulse Ox 98.6 F 94 H 17 112/66 96 04/14/23 08:00 04/14/23 08:00 04/14/23 08:00 04/14/23 08:00 04/14/23 08:00 Laboratory Data at Discharge: WBC 7.40 thou/uL (4.3-10.9) 04/14/23 06:57 Hgb 9.3 g/dL (13.6-17.9) L 04/14/23 06:57 Hct 27.6 % (39.6-49.0) L 04/14/23 06:57 Plt Count 300 thou/uL (152-406) 04/14/23 06:57 Sodium 133 mEq/L (136-145) L 04/14/23 06:57 Potassium 3.7 mEq/L (3.5-5.1) 04/14/23 06:57 BUN 8 mg/dL (7-18) 04/14/23 06:57 Creatinine 0.41 mg/dL (0.70-1.30) L 04/14/23 06:57 Glucose 240 mg/dL (74-106) H 04/14/23 06:57 Phosphorus 2.0 mg/dL (2.5-4.9) L 04/14/23 06:57 Magnesium 1.9 mg/dL (1.6-2.4) 04/14/23 06:57 Total Bilirubin 0.2 mg/dL (0.2-1.0) 04/13/23 06:12 AST 9 U/L (15-37) L 04/13/23 06:12 ALT 18 U/L (16-61) 04/13/23 06:12 Alkaline Phosphatase 78 U/L (45-117) 04/13/23 06:12 Triglycerides 84 mg/dL (<150) 04/12/23 08:32 Cholesterol 123 mg/dL (<200) 04/12/23 08:32 HDL Cholesterol 51 mg/dL (40-60) 04/12/23 08:32 Cholesterol/HDL Ratio 2.41 04/12/23 08:32 Home Medications: Insulin Detemir [Levemir] 20 units SQ BID 30 Days #15 ml 04/14/23 Midodrine HCl [Proamatine*] 5 mg PO TID 30 Days #90 tab 04/14/23 New Medications: Insulin Detemir [Levemir] 20 units SQ BID 30 Days #15 ml Midodrine HCl [Proamatine*] 5 mg PO TID 30 Days #90 tab Physician Discharge Instructions: Continue ad jaun activity. Take home meds as prescribed. Take levemir 20u subq BID. Follow up with PCP within 1 week Diet: ADA Activity: Ad jaun Followup: NONE,NONE [Primary Care Provider] -
--- NOTE | 2023-04-14 15:06 | EKG ---
Test Date: 2023-04-12 Test Time: 00:21:24 Seam Rubbing Machine Operator: DARRIAN MEASUREMENT RESULTS: Intervals: Rate: 92 WA: 238 QRSD: 90 QT: 394 QTc: 487 [place]: P: 31 WA: 238 QRS: 85 T: 63 INTERPRETIVE STATEMENTS: Sinus rhythm with 1st degree AV block Right atrial enlargement Nonspecific T wave abnormality Prolonged QT Abnormal ECG Compared to ECG 10/19/2022 18:14:14 First degree AV block now present Atrial abnormality now present Prolonged QT interval now present Possible ischemia no longer present T-wave abnormality still present Electronically Signed On 04-14-23 15:01:13 BINDING MACHINE OPERATOR by Milo Elizabeth
== END 2023-04-14 12:29 | disposition home or self-care (01) | DRG 637 ==
LOC: ER 00:02 → ERHOLD 02:38 → 4TH 04:57
PROVIDERS: ADMIT Internal Medicine Nephrology; ATTEND Hospitalist
DX: E10.65 Type 1 diabetes mellitus with hyperglycemia (principal); E43 Unspecified severe protein-calorie malnutrition; R64 Cachexia; Z68.1 Body mass index [BMI] 19.9 or less, adult; D64.9 Anemia, unspecified; E87.6 Hypokalemia; E83.42 Hypomagnesemia; T38.3X6A Underdosing of insulin and oral hypoglycemic [antidiabetic] drugs, initial encounter; Z79.4 Long term (current) use of insulin; Z88.1 Allergy status to other antibiotic agents; Z91.138 Patient's unintentional underdosing of medication regimen for other reason; Z91.148 Patient's other noncompliance with medication regimen for other reason
CPT/HCPCS: 36415; 36600; 71045; 80048; 80053; 80061; 82533; 82805; 82947; 83735; 83880; 83930; 84100; 84132; 84484; 85025; 93005; J1650; J1815; J3475; J3480; J7030; J7040

== ENCOUNTER 2023-07-15 14:49 | Inpatient (IN) | payer OTHER ==
--- OUTSIDE RECORDS SUMMARY | 2023-07-15 14:55 | XMS REPORT | Continuity of Care Document ---
Author Name Unknown Address [address] [place] [address] [place] [address] [employer] Address [address] [place] [address] [address] [place] [address] Care Team Providers Care Director Of Accreditation Name Role Phone ALAINA PEÑA Attending Clinician Unavailable ANA CASTELLON Attending Clinician Unavailab le Payers Payer Name Policy Type Policy Number Effective Date Expirati on Date Source BCBS 2 [id number] 2022 00:00:00 Social History Social Habit Start Date Stop Date Quantity Comments Source Gender identity Carmina Adams - External Sexual orientation K piotr Adams - External Sex Assigned At 1990 00:00:00 1990 00:00:00 Rajani Adams - External Smoking Status Start Date Stop Date Source Tobacco smoking consumption unknown Rajani Adams - External Encounters Start Date/Time End Date/Time Encounter Type Admission Type Attending Clinicians Care Facility Care Department Encounter ID Source 2022-08-14 11:15:00 2022-08-14 11:15:00 Outpatient ALAINA PEÑA [id number] Rajani Adams 2022-07-15 08:00:00 2022-07-15 08:00:00 Outpatient AAN CASTELLON [id number] Rajani Adams 2022-04-01 09:15:00 2022-04-01 09:15:00 Outpatient ALAINA PEÑA [id number] Rajani Adams Results Test Description Test Time Test Comments Results Result Co mments Source LIPID [id number] 09:19:37* Test Item Value Reference Range Interpretation Comme nts CHOLESTEROL (test code = 2210) 140 MG/DL <200 TRIGLYCERIDES (test code = 2232) 209 MG/DL <150 H HDL CHOLESTEROL (test code = 2220) 35 MG/DL >39 L CALC LDL CHOL (test code = 2237) 75 MG/DL <100 NOTE: CALCULATED LDL IS BASED ON PERCY-HOLLINS METHOD WHICHINCLUDES ADJUSTABLE TRIGLYCERIDE:VLDL CHOLESTEROL RATIO.THIS FACTOR VARIES BY MEASURED TRIGLYCERIDE AND NON-HDLCHOLESTEROL CONCENTRATIONS WITH INCREASED CALCULATED LDL SEENIN HIGHER TRIGLYCERIDE OR LOWER NON-HDL SPECIMENS. FOR MOREINFORMATION, SEE CLIENT ANNOUNCEMENT AT [email or web address] RATIO LDL/HDL (test code = 2238) 2.14 RATIO <3.22 HEMOGLOBIN [id number] 06:49:19* Test Item Value Reference Range Interpretation Comme nts HEMOGLOBIN A1c (test code = 86674) 13.9 % 4.2-5.6 H [employer] GUIDELINES FOR HGB A1C: [...] TESTING PERFORMED AT [facility] [address] [place] [id number] AUGER MACHINE OFFBEARER: DAWOOD DUARTE M.D. CLIA NUMBER [id number] [facility] [place]. [id number]
[2023-07-15] MEDS ORDERED: INSULIN REGULAR (HUMAN) 100 UNIT/ML ONE (15:01)
[2023-07-15] MEDS ORDERED: NA CHLORIDE 0.9% 1,000 ML ONE ×3 (15:02→17:22)
[2023-07-15 15:16] LABS: Absolute Basophils 0.1 K/uL (0-0.5); Absolute Lymphocytes (CBC) 0.7 K/uL (0.7-4.9); Absolute Monocytes 0.6 K/uL (0.1-1.3); Basophils % 0.8 % (0-1.3); Eosinophils % 0.1 % (0-4.4); Hematocrit 23.2 % (39.6-49.0); Hemoglobin 7.5 g/dL (13.6-17.9); MCH 25.4 pg (27.0-35.0); MCHC 32.3 g/dL (32.0-36.0); MCV 78.5 fL (80-100); MPV 7.2 fL (7.6-11.3); Neutrophils % 88.1 % (41.7-73.7); Nucleated Red Blood Cells % 0.2 % (0-0); Platelets 390 thou/uL (152-406); RBC Red Blood Cell Count 2.95 M/uL (4.33-5.43); Red Cell Distribution Width 16.4 % (12.1-15.2)
[2023-07-15 15:33] LABS: ALT/SGPT 30 U/L (16-61); Albumin 2.6 g/dL (3.4-5.0); Albumin/Globulin Ratio 0.9 (1.1-1.8); Alkaline Phosphatase 86 U/L (45-117); Anion Gap 7.5 mEq/L (5.0-15.0); BETA HYDROXYBUTYRATE 0.76 mmol/L (0.02-0.27); BUN Blood Urea Nitrogen 10 mg/dL (7-18); Bicarbonate 31 mEq/L (21-32); Bilirubin Total 0.2 mg/dL (0.2-1.0); Globulin 2.9 g/dL (2.3-3.5); Glomerular Filtration Rate 133 ml/min (=/>90); Lipase 24 U/L (13-75); Protein, Total 5.5 g/dL (6.4-8.2); Sodium Level 130 mEq/L (136-145)
[2023-07-15 15:37] LABS: AST/SGOT < 10 U/L (15-37)
[2023-07-15 15:39] LABS: Glucose Level 405 mg/dL (74-106); Potassium 2.5 mEq/L (3.5-5.1)
[2023-07-15] MEDS ORDERED: KCL 20 MEQ/100 mL IVPB 100 ML IV ONE (16:01)
[2023-07-15 16:34] LABS: Blood Morphology Comment NOT SEEN (NOT SEEN); Platelet Estimate ADEQ; White Blood Cell Scan OK (OK)
[2023-07-15 16:42] LABS: Blood O2 Saturation 95.3 % (92-98.5)
[2023-07-15 16:43] LABS: Arterial Blood Carboxyhemoglob 6.7 % (0-1.5); Blood Gas THB 7.5 g/dl (12-18)
--- NOTE | 2023-07-15 17:14 | RAD REPORT ---
EXAM DESCRIPTION: RADChest Single View07/15/2023 3:40 pm CLINICAL HISTORY: possible DKA COMPARISON: Chest Single View dated 04/12/2023; Chest Single View dated 03/25/2022; CHEST SINGLE VIEW d ated 06/28/2011 TECHNIQUE: Portable AP view of the chest. FINDINGS: Patchy mild right upper lung opacities. No pneumothorax or effusion. The cardiomediastina l contours are unremarkable. IMPRESSION: Mild patchy right upper lung opacities, suggesting early pneumonitis.
[2023-07-15 17:52] LABS: Specific Gravity 1.028 (1.005-1.030); Urine Bilirubin NEGATIVE (Negative); Urine Blood Negative (Negative); Urine Clarity Clear (Clear); Urine Color Colorless (Yellow); Urine Glucose 4+ (Over) (Negative); Urine Ketones 2+ (Negative); Urine Microscopic Reflex YN NO UMIC; Urine Nitrite NEGATIVE (Negative); Urine Protein NEGATIVE (Negative); Urine Urobilinogen Normal (Normal); Urine pH 5.5 (5.0-7.0)
--- NOTE | 2023-07-15 18:17 | RAD REPORT ---
EXAM DESCRIPTION: CT - Abdomen Pelvis W Contrast - 07/15/2023 4:42 pm CLINICAL HISTORY: weak, anemia, possible GI bleed COMPARISON: Abdomen Pelvis W Contrast dated 05/31/2020; Abdomen Pelvis W Contrast dated 03/27/2020 ; Abdomen Pelvis W Contrast dated 10/19/2019; Chest Single View dated 07/15/2023 TECHNIQUE: Thin cut axial CT imaging of the abdomen and pelvis was performed following intravenous a dministration of iodinated contrast. Multiplanar reformats were generated and reviewed. All CT scans are performed using dose optimization technique as appropriate and may include automated exposure control or mA/KV adjustment according to patient size. FINDINGS: Patchy predominantly peripheral airspace opacities in the right lower lobe, and to lesser extent in the right middle lobe. The liver, spleen, and pancreas show no suspicious findings. Gallbladder and biliary tree are also wi thout suspicious finding. Symmetric renal function is seen with no hydronephrosis or suspicious renal mass. No dilated bowel loops or bowel wall thickening. Diffuse edema throughout the retroperitoneum. Fluid throughout the ascending and transverse colon. Subtle mural gas along the rivas of the ascending colo n, see axial image 52 among others. No free air, free fluid or inflammatory stranding. No hernia, mas s or bulky lymphadenopathy. The urinary bladder is markedly distended. No suspicious bony findings. Diffuse body wall edema. IMPRESSION: Diffuse body wall edema and edema throughout the retroperitoneum with trace effusions. F indings may relate to fluid overload. Patchy airspace opacities in the right lung as above, concerning for pneumonia. Fluid filling of the ascending and transverse colon, nonspecific, and may relate to colitis or diarrh eal state. Subtle mural gas along the rivas of the ascending colon, nonspecific, could relate to ongoing colitis , either infectious/inflammatory or possibility of ischemia should be considered. Markedly distended urinary bladder, could be a neurogenic nature. The findings were communicated to Param Walden on 07/15/2023 at 18:12 hours.
--- NOTE | 2023-07-15 18:24 | EDPHYS ---
Physician Documentation [facility] Name: Chinmay Mitchell Age: 33 yrs Sex: Male : 1990 Arrival Date: 07/15/2023 Time: 14:49 Bed 2 Private MD: ED Physician Param Walden HPI: 07/14 14:53 This 33 yrs old Male presents to ER via EMS with complaints of High Blood Sugar, rn General Weakness. 14:53 The patient or guardian reports hyperglycemia. Onset: The symptoms/episode rn began/occurred today. Associated signs and symptoms: Pertinent positives: polydipsia, polyuria. Current symptoms: In the emergency department the patient's symptoms are unchanged from the initial presentation. The patient has experienced similar episodes in the past. Patient reports high blood sugar has started today. States compliant with his insulin regimen. Denies feeling ill. No fever. No cough. No abdominal pain or vomiting. Patient reports body aches but states gets like that we do sugars high like this. Reports polyuria and polydipsia.. Historical: - Allergies: 14:54 Amoxicillin; db - Home Meds: 14:54 Levemir 100 unit/mL subcutaneous soln 20 unit nightly for Type 1 Diabetes Mellitus db [Active]; - PMHx: 14:54 Diabetes - IDDM; db - Immunization history:: Adult Immunizations unknown. - Infectious Disease History:: Denies. - Social history:: Smoking status: Patient reports the use of cigarette tobacco products, smokes one pack cigarettes per day. - Family history:: not pertinent. - Hospitalizations: : No recent hospitalization is reported. ROS: 14:53 Constitutional: Negative for fever, chills, and weight loss, Cardiovascular: Negative rn for chest pain, palpitations, and edema, Respiratory: Negative for shortness of breath, cough, wheezing, and pleuritic chest pain, Abdomen/GI: Negative for abdominal pain, nausea, vomiting, diarrhea, and constipation, Back: Negative for injury and pain, : Negative for injury, bleeding, discharge, and swelling, MS/Extremity: Negative for injury and deformity, Skin: Negative for injury, rash, and discoloration, Neuro: Positive for generalized weakness Exam: 14:56 Constitutional: Thin patient, appears pale and weak Head/Face: Normocephalic, rn atraumatic. ENT: Dry mucous membranes Cardiovascular: Tachycardic, regular. No pulse deficits Respiratory: No increased work of breathing, no retractions or nasal flaring. Abdomen/GI: Soft, nontender, nondistended no guarding or rebound MS/ Extremity: Pulses equal, no cyanosis. Neuro: Awake and alert, GCS 15, moves all 4 extremities with equal strength 15:06 ECG was reviewed by the Attending Physician. rn Vital Signs: 14:51 BP 95 / 61; Pulse 100; Resp 16; Temp 98.5(O); Pulse Ox 98% on R/A; Weight 54.43 kg; db Height 5 ft. 11 in. ; 15:30 BP 90 / 57; Pulse 92; Resp 13; Pulse Ox 100% on R/A; db 16:13 BP 87 / 54; Pulse 94; Resp 14; Pulse Ox 96% ; db 16:20 BP 88 / 68; Pulse 96; Resp 12; Pulse Ox 97% on R/A; db 16:55 BP 105 / 69; Pulse 92; Resp 14; Pulse Ox 99% on R/A; db 17:10 BP 100 / 69; Pulse 100; Resp 16; Pulse Ox 96% on R/A; db 17:30 BP 92 / 66; Pulse 98; Resp 12; Pulse Ox 98% on R/A; db 18:12 BP 96 / 68; Pulse 97; Resp 16; Pulse Ox 100% ; db 19:20 BP 91 / 62; Pulse 93; Resp 18 S; Pulse Ox 99% on R/A; ha1 19:45 BP 87 / 55; Pulse 85; Resp 17 S; Pulse Ox 98% on R/A; ha1 20:00 BP 146 / 80; Pulse 90; Resp 18; Pulse Ox 98% on R/A; ha1 20:15 BP 89 / 59; Pulse 87; Resp 17 S; Pulse Ox 98% on R/A; ha1 20:30 BP 122 / 87; Pulse 92; Resp 18 S; Pulse Ox 100% on R/A; MAP 95 mmHg; ha1 20:45 BP 105 / 59; Pulse 93; Resp 17 S; Pulse Ox 98% on R/A; ha1 21:00 BP 92 / 64; Pulse 90; Resp 17 S; Pulse Ox 100% on R/A; MAP 74 mmHg; ha1 21:15 BP 97 / 58; Pulse 92; Resp 17 S; Pulse Ox 98% on R/A; MAP 67 mmHg; ha1 21:30 BP 108 / 58; Pulse 93; Resp 17 S; Pulse Ox 96% on R/A; MAP 68 mmHg; ha1 21:45 BP 93 / 58; Pulse 89; Resp 17 S; Pulse Ox 98% on R/A; ha1 22:00 BP 105 / 67; Pulse 92; Resp 17 S; Pulse Ox 98% on R/A; ha1 22:15 BP 107 / 69; Pulse 91; Resp 15 S; Pulse Ox 98% on R/A; MAP 78 mmHg; ha1 14:51 Body Mass Index 16.74 (54.43 kg, 180.34 cm) db 16:[address] WALDEN OF PT BP db Procedures: 19:18 Central Line: the site was prepped with Betadine, in sterile fashion, a triple lumen rn catheter was inserted, in the right femoral vein, in 2 attempts. placement was verified, by blood return, the site was dressed with Tegaderm, using sterile technique, the patient tolerated the procedure, well. MDM: 14:50 Patient medically screened. rn 15:16 ED course: ABG shows pH 7.411, PCO2 48, HCo3 29.9. rn 18:21 Differential diagnosis: DKA, hyperglycemia, Colitis, dehydration, viral illness. Data rn reviewed: vital signs, nurses notes, lab test result(s), EKG, radiologic studies, CT scan, plain films, and as a result, I will admit patient. Consideration of Admission/Observation Patient was admitted/placed on observation. Escalation of care including admission/observation considered. Management of patient was discussed with the following: Hospitalist: Case discussed with hospitalist, will admit for further care. Counseling: I had a detailed discussion with the patient and/or guardian regarding the historical points, exam findings, and any diagnostic results supporting the discharge/admit diagnosis, lab results, radiology results, the need for further work-up and treatment in the hospital. Response to treatment: the patient's symptoms have mildly improved after treatment, and as a result, I will admit patient. ED course: Patient with evidence of colitis and pneumonia. Had 2 blood pressures under 90 systolic. Triggered septic workup. 3 L bolus administered which is greater than 30 mL/kg for this thin male. Blood pressure has improved, currently 96/68. Antibiotics ordered empirically. Lactic acid still pending. Will admit to hospitalist service for further care. Sepsis reevaluation completed.. ED course: I personally spent 35 minutes engaged in work directly related to the individual patient's care. This does not include any time spent performing procedures. The patient has been deemed critically ill because of hypotension secondary to volume depletion/pneumonia/colitis as well as hyperglycemia.. 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 07/14 14:52 Order name: CBC with Diff; Complete Time: 18:11 07/14 14:52 Order name: Urinalysis w/ reflexes; Complete Time: 18:11 07/14 14:52 Order name: ABG: ok to do VBG; Complete Time: 18:11 07/14 14:56 Order name: CMP; Complete Time: 15:41 07/14 14:56 Order name: Lipase; Complete Time: 15:41 07/14 15:11 Order name: Glucose, Ancillary Testing; Complete Time: 15:41 EDMO 07/14 15:18 Order name: BETA HYDROXYBUTYRATE; Complete Time: 15:41 EDMO 07/14 16:34 Order name: CBC Smear Scan; Complete Time: 18:11 EDMO 07/14 16:36 Order name: Glucose, Ancillary Testing; Complete Time: 18:11 EDMO 07/14 16:59 Order name: Blood Culture Adult (2) 07/14 16:59 Order name: Lactate w/ 2H reflex if indic.; Complete Time: 18:39 07/14 16:59 Order name: Protime (+inr); Complete Time: 18:39 07/14 16:59 Order name: Ptt, Activated; Complete Time: 18:39 07/14 18:33 Order name: Glucose, Ancillary Testing; Complete Time: 18:39 EDMO 07/14 19:40 Order name: Type And Screen rn 07/14 21:41 Order name: Lactate w/ 2H reflex if indic. EDMO 07/14 21:43 Order name: Basic Metabolic Panel EDMO 07/14 21:43 Order name: Magnesium EDMO 07/14 22:10 Order name: ABO/RH no charge EDMO 07/14 14:56 Order name: XRAY Chest (1 view); Complete Time: 18:11 rn 07/14 15:42 Order name: CT Abd/Pelvis - IV Contrast Only; Complete Time: 18:18 rn 07/14 20:16 Order name: CONS Physician Consult [facility] 07/14 14:52 Order name: IV Start; Complete Time: 15:38 rn 07/14 14:52 Order name: EKG - Nurse/Tech; Complete Time: 14:58 rn 07/14 14:56 Order name: Labs collected and sent; Complete Time: 15:09 rn 07/14 16:59 Order name: Accucheck; Complete Time: 17:35 rn 07/14 16:59 Order name: Cardiac monitoring; Complete Time: 17:35 rn 07/14 16:59 Order name: IV Saline Lock - Large Bore; Complete Time: 17:35 rn 07/14 16:59 Order name: O2 Per Protocol; Complete Time: 17:35 rn 07/14 16:59 Order name: O2 Sat Monitoring; Complete Time: 17:35 rn 07/14 16:59 Order name: Vital Signs; Complete Time: 17:35 rn EC:06 Rate is 98 beats/min. Rhythm is regular. QRS [place] is Normal. AR interval is normal. QRS rn interval is normal. No Q waves. T waves are Normal. No ST changes noted. Clinical impression: NSR w/ Non-specific ST/T Changes. Interpreted by me. Reviewed by me. Administered Medications: 14:55 Drug: Insulin Regular Human IVP 10 units IVP once {Co-Signature: db (Gay Chavez rs5 RN).} Route: IVP; Site: left antecubital; 17:36 Follow up: Response: No adverse reaction db 15:00 Drug: NS 0.9% IV 1000 ml IV at 1000 ml once Route: IV; Rate: 1000 ml; Site: left rs5 forearm; 17:36 Follow up: Response: No adverse reaction; IV Status: Completed infusion; IV Intake: db 1000ml 15:00 Drug: NS 0.9% IV 1000 ml IV at 1000 ml once Route: IV; Rate: 1000 ml; Site: left rs5 forearm; 16:00 Drug: Potassium Chloride IV 20 mEq IV at calculated rate once; administer over 1-2 rs5 hours Route: IV; Rate: calculated rate; Site: right forearm; 19:19 Follow up: Response: No adverse reaction; IV Status: Completed infusion; IV Intake: db 100ml 16:45 Drug: NS 0.9% IV 1000 ml IV at 1000 ml once Route: IV; Rate: 1000 ml; Site: left db antecubital; 18:25 Follow up: Response: No adverse reaction; IV Status: Completed infusion; IV Intake: db 1000ml 17:35 Drug: NS 0.9% IV 1000 ml IV at 75 ml/hr continuous Route: IV; Rate: 75 ml/hr; Site: db left forearm; 19:19 Follow up: Response: No adverse reaction; IV Status: Completed infusion db 18:28 Drug: levofloxacin IVPB 750 mg 150 ml IVPB once over 90 mins Volume: 150 ml; Route: db IVPB; Infused Over: 90 mins; Site: right antecubital; 20:00 Follow up: Response: No adverse reaction; IV Status: Completed infusion; IV Intake: ha1 250ml 19:33 Drug: vancoMYCIN IVPB 1 grams IVPB once over 2 hrs Route: IVPB; Infused Over: 2 hrs; ha1 Site: left antecubital; 21:30 Follow up: Response: No adverse reaction; IV Status: Completed infusion; IV Intake: ha1 250ml 19:45 Drug: Norepinephrine IV 0.1 mcg/kg/min IV at calculated rate Per protocol; (Standard ha1 concentration 4 mg / 250 mL D5W); Recommended max rate 3 mcg/kg/min; Titrate 0.05 mcg/kg/min as often as every 5 minutes to achieve goal (see titration policy); Goal parameter MAP greater than 65 mmHg. Route: IV; Rate: calculated rate; Site: right femoral; 20:30 Follow up: Response: No adverse reaction; IV Status: Infusion continued ha1 Point of Care Testing: Blood Glucose: 14:59 Blood Glucose: 428 mg/dL; db 18:20 Blood Glucose: 322 mg/dL; db Ranges: Critical Glucose Levels:Adult <50 mg/dl or >400 mg/dl <40 mg/dl or >180 mg/dl Disposition Summary: 07/15/23 18:23 Hospitalization Ordered Notes: Hospitalization Status: Inpatient Admission rn Provider: Nesha Howard rn Location: Intensive Care Unit rn Condition: Stable rn Problem: new rn Symptoms: have improved rn Bed/Room Type: Standard rn Room Assignment: 7-(07/15/23 21:09) shahida Diagnosis - Infectious gastroenteritis and colitis, unspecified rn - Pneumonia, unspecified organism rn - Hypotension, unspecified rn - Hyperglycemia, unspecified rn Forms: - Medication Reconciliation Form rn - SBAR form rn - Leadership Thank You Letter groover and turner time excluding procedures: 18:21 Critical care time: Bedside Care: 30 minutes, Consultation: 5 minutes. Total time: 35 rn minutes Signatures: Dispatcher [employer] EDMS Tresa Bee RN Param Tucker MD MD rn Bryson, James, RN RN Meli Barton, RN RN ha1 Gay Chavez, RN RN db rGegorio Pelaez RN RN rs5 Gay Chavez RN db Corrections: (The following items were deleted from the chart) 14:53 14:52 CBC+H.LAB.BRZ ordered. EDMS EDMS 14:53 14:52 Urinalysis+U.LAB.BRZ ordered. EDMS EDMS 15:17 14:52 BASIC METABOLIC PANEL+C.LAB.BRZ ordered. EDMS EDMS 15:17 14:52 BETA HYDROXYBUTYRATE+C.LAB.BRZ ordered. EDMS EDMS 16:59 16:59 BLOOD CULTURE*+BA.LAB.BRZ ordered. EDMS EDMS 16:59 16:59 LACTATE+C.LAB.BRZ ordered. EDMS EDMS 16:59 16:59 PROTIME (+INR)+COAG.LAB.BRZ ordered. EDMS EDMS 16:59 16:59 PTT, ACTIVATED+COAG.LAB.BRZ ordered. EDMS EDMS 19:47 19:21 Femur Right+RAD.RAD.BRZ ordered. EDMS EDMS 20:47 18:23 rn jb4 21:09 20:47 1- jb4
--- NOTE | 2023-07-15 18:24 | ER ---
Nurse's Notes [facility] Name: Chinmay Mitchell Age: 33 yrs Sex: Male : 1990 Arrival Date: 07/15/2023 Time: 14:49 Bed 2 Private MD: Diagnosis: Infectious gastroenteritis and colitis, unspecified;Pneumonia, unspecified organism;Hypotension, unspecified;Hyperglycemia, unspecified Presentation: 07/14 14:51 Chief complaint: EMS states: FEELING WEAK STARTED TODAY. GLUCOSE READ HIGH FOR EMS. BP db 70/40 UPON EMS ARRIVAL THEN 90/60 AFTER 500 ML BOLUS LR. Coronavirus screen: Vaccine status:. Coronavirus screen: Client denies travel out of the [place] in the last 14 days. At this time, the client does not indicate any symptoms associated with coronavirus-19. Ebola Screen: Patient negative for fever greater than or equal to 101.5 degrees Fahrenheit, and additional compatible Ebola Virus Disease symptoms Patient denies exposure to infectious person. Patient denies travel to an Ebola-affected area in the 21 days before illness onset. No symptoms or risks identified at this time. Initial Sepsis Screen: Does the patient meet any 2 criteria? No. Patient's initial sepsis screen is negative. Does the patient have a suspected source of infection? No. Patient's initial sepsis screen is negative. Risk Assessment: Do you want to hurt yourself or someone else? Patient reports no desire to harm self or others. Onset of symptoms was July 15, 2023. 14:51 Method Of Arrival: EMS: [facility] db 14:51 Acuity: BROOKE 2 db 14:51 Care prior to arrival: Medication(s) given: 500 ML LR IV initiated. 20 GA, in the left db antecubital area. Triage Assessment: 14:51 General: Appears in no apparent distress. uncomfortable, slender, emaciated, Behavior db is calm, cooperative. Pain: Denies pain. Neuro: Level of Consciousness is awake, alert, obeys commands, Oriented to person, place, time, situation. Respiratory: Airway is patent Respiratory effort is even, unlabored, Respiratory pattern is regular, symmetrical. Derm: Skin is pale. Historical: - Allergies: 14:54 Amoxicillin; db - Home Meds: 14:54 Levemir 100 unit/mL subcutaneous soln 20 unit nightly for Type 1 Diabetes Mellitus db [Active]; - PMHx: 14:54 Diabetes - IDDM; db - Immunization history:: Adult Immunizations unknown. - Infectious Disease History:: Denies. - Social history:: Smoking status: Patient reports the use of cigarette tobacco products, smokes one pack cigarettes per day. - Family history:: not pertinent. - Hospitalizations: : No recent hospitalization is reported. Screenin:[address] [facility] ED Fall Risk Assessment (Adult) History of falling in the last 3 months, db including since admission No falls in past 3 months (0 pts) Confusion or Disorientation No (0 pts) Intoxicated or Sedated No (0 pts) Impaired Gait No (0 pts) Mobility Assist Device Used No (0 pt) Altered Elimination No (0 pt) Score/Fall Risk Level 0 - 2 = Low Risk Oriented to surroundings, Maintained a safe environment. Abuse screen: Denies threats or abuse. Denies injuries from another. Nutritional screening: No deficits noted. Tuberculosis screening: No symptoms or risk factors identified. Assessment: 14:51 General: Appears in no apparent distress. uncomfortable, Behavior is calm, cooperative. rs5 Pain: Denies pain. Neuro: Level of Consciousness is awake, alert, obeys commands, Oriented to person, place, time, situation, Reports generalized weakness. Cardiovascular: Patient's skin is warm and dry. Rhythm is regular. Respiratory: Airway is patent Respiratory effort is even, unlabored, Respiratory pattern is regular, symmetrical. GI: Abdomen is round non-distended, Abd is soft and non tender X 4 quads. : No signs and/or symptoms were reported regarding the genitourinary system. EENT: No signs and/or symptoms were reported regarding the EENT system. Derm: Skin is intact, Skin is pink, warm \\T\\ dry. Musculoskeletal: Range of motion: intact in all extremities. 14:56 Reassessment: RT NOTIFIED OF NEED FOR ABG. db 16:01 Reassessment: No changes from previously documented assessment. rs5 16:24 Reassessment: To bedside for blood sugar check, blood sugar results 323 \\T\\1623. rs5 18:24 Reassessment: Patient appears in no apparent distress at this time. Patient and/or db family updated on plan of care and expected duration. Pain level reassessed. Patient is alert, oriented x 3, equal unlabored respirations, skin warm/dry/pink. PATIENT CHANGED INTO A GOWN AND CLEANED. LINEN CLEANED. PT INCONTINENT OF STOOL. NOTED DIARRHEA. 19:00 Reassessment: CENTRAL LINE KIT AT PATIENT BEDSIDE PER DR. WALDEN. db 19:00 Reassessment: Patient appears in no apparent distress at this time. Patient and/or db family updated on plan of care and expected duration. Pain level reassessed. Patient is alert, oriented x 3, equal unlabored respirations, skin warm/dry/pink. 19:15 General: Appears uncomfortable, ill, Behavior is calm, cooperative. Pain: Denies pain. ha1 Neuro: Level of Consciousness is awake, alert, obeys commands, Oriented to person, place, time, situation. Cardiovascular: Heart tones S1 S2 present Capillary refill < 3 seconds Patient's skin is warm and dry. Respiratory: Airway is patent Respiratory effort is even, unlabored, Respiratory pattern is regular, symmetrical. GI: Abdomen is flat, non-distended. : No signs and/or symptoms were reported regarding the genitourinary system. Derm: Skin is pale. Musculoskeletal: Circulation, motion, and sensation intact. Range of motion: intact in all extremities. 20:00 Reassessment: Notified Dr. Walden of new blood pressure. states " pause medication and ha1 get it restarted as need it.". 20:15 Reassessment: medication continue. ha1 21:00 Reassessment: attempted to give report. ha1 21:00 Reassessment: Patient and/or family updated on plan of care and expected duration. Pain ha1 level reassessed. Patient is alert, oriented x 3, equal unlabored respirations, skin warm/dry/pink. 21:30 Reassessment: report given to TRELL Hopson. ha1 22:00 Reassessment: Patient and/or family updated on plan of care and expected duration. Pain ha1 level reassessed. Patient is alert, oriented x 3, equal unlabored respirations, skin warm/dry/pink. Vital Signs: 14:51 BP 95 / 61; Pulse 100; Resp 16; Temp 98.5(O); Pulse Ox 98% on R/A; Weight 54.43 kg; db Height 5 ft. 11 in. ; 15:30 BP 90 / 57; Pulse 92; Resp 13; Pulse Ox 100% on R/A; db 16:13 BP 87 / 54; Pulse 94; Resp 14; Pulse Ox 96% ; db 16:20 BP 88 / 68; Pulse 96; Resp 12; Pulse Ox 97% on R/A; db 16:55 BP 105 / 69; Pulse 92; Resp 14; Pulse Ox 99% on R/A; db 17:10 BP 100 / 69; Pulse 100; Resp 16; Pulse Ox 96% on R/A; db 17:30 BP 92 / 66; Pulse 98; Resp 12; Pulse Ox 98% on R/A; db 18:12 BP 96 / 68; Pulse 97; Resp 16; Pulse Ox 100% ; db 19:20 BP 91 / 62; Pulse 93; Resp 18 S; Pulse Ox 99% on R/A; ha1 19:45 BP 87 / 55; Pulse 85; Resp 17 S; Pulse Ox 98% on R/A; ha1 20:00 BP 146 / 80; Pulse 90; Resp 18; Pulse Ox 98% on R/A; ha1 20:15 BP 89 / 59; Pulse 87; Resp 17 S; Pulse Ox 98% on R/A; ha1 20:30 BP 122 / 87; Pulse 92; Resp 18 S; Pulse Ox 100% on R/A; MAP 95 mmHg; ha1 20:45 BP 105 / 59; Pulse 93; Resp 17 S; Pulse Ox 98% on R/A; ha1 21:00 BP 92 / 64; Pulse 90; Resp 17 S; Pulse Ox 100% on R/A; MAP 74 mmHg; ha1 21:15 BP 97 / 58; Pulse 92; Resp 17 S; Pulse Ox 98% on R/A; MAP 67 mmHg; ha1 21:30 BP 108 / 58; Pulse 93; Resp 17 S; Pulse Ox 96% on R/A; MAP 68 mmHg; ha1 21:45 BP 93 / 58; Pulse 89; Resp 17 S; Pulse Ox 98% on R/A; ha1 22:00 BP 105 / 67; Pulse 92; Resp 17 S; Pulse Ox 98% on R/A; ha1 22:15 BP 107 / 69; Pulse 91; Resp 15 S; Pulse Ox 98% on R/A; MAP 78 mmHg; ha1 14:51 Body Mass Index 16.74 (54.43 kg, 180.34 cm) db 16:[address] WALDEN OF PT BP db ED Course: 14:50 Patient arrived in ED. db 14:50 Param Walden MD is Attending Physician. rn 14:51 Arm band placed on Patient placed in an exam room. db 14:52 Triage completed. db 14:56 Gay Chavez, RN is Primary Nurse. db 14:56 Maintain EMS IV. Dressing intact. Good blood return noted. Site clean \\T\\ dry. Gauge \\T\\ db site: 20 G LAC. 15:04 Initial lab(s) drawn, by me, sent to lab. ABG drawn. by RT staff, on room air. db 15:42 XRAY Chest (1 view) In Process Unspecified. EDMS 16:14 Inserted saline lock: 20 gauge in right forearm, using aseptic technique. rs5 16:20 Radiology exam delayed due to Per Gregorio patient not ready at this time. nj 16:[address] via stretcher. db 16:39 Patient has correct armband on for positive identification. Bed in low position. Call db light in reach. Side rails up X 1. Client placed on continuous cardiac and pulse oximetry monitoring. NIBP monitoring applied. monitor technician on. Pulse ox on. NIBP on. Warm blanket given. 16:44 CT Abd/Pelvis - IV Contrast Only In Process Unspecified. EDMS 17:10 Urine collected: clean catch specimen, clear. db 18:23 Nesha Howard MD is Hospitalizing Provider. rn 19:13 Report given to TRELL APPIAH. db 19:15 Provided Education on: need for central . ha1 19:20 Assisted provider with central line placement. Set up central line tray. Triple lumen ha1 line placed in right femoral. Line placed by Param Walden MD Placement verified by CXR, blood return, Dressed with Tape, Tegaderm, Patient tolerated well. Before procedure, did Practitioner(s) obtain informed consent? Yes. Patient \\T\\ family education about procedure, CLABSI prevention and S/S of infection? Yes. Time-out/Briefing performed prior to start of procedure? Yes. Was handwashing/sanitizing done immediately prior to procedure? Yes. Was procedure site sterilized? Yes, with chlorhexidine. Was the site allowed to dry? Yes. Was local anesthetic and/or sedation utilized? Yes. During the procedure, did the Practitioner(s) maintain a sterile field? Yes. Was blood aspirated from each lumen? Yes. After the procedure, did the Practitioner(s) clean the site and apply a sterile dressing? Yes. 22:25 Patient admitted, IV remains in place. ha1 Administered Medications: 14:55 Drug: Insulin Regular Human IVP 10 units IVP once {Co-Signature: cassi (Gay Chavez rs5 RN).} Route: IVP; Site: left antecubital; 17:36 Follow up: Response: No adverse reaction db 15:00 Drug: NS 0.9% IV 1000 ml IV at 1000 ml once Route: IV; Rate: 1000 ml; Site: left rs5 forearm; 17:36 Follow up: Response: No adverse reaction; IV Status: Completed infusion; IV Intake: db 1000ml 15:00 Drug: NS 0.9% IV 1000 ml IV at 1000 ml once Route: IV; Rate: 1000 ml; Site: left rs5 forearm; 16:00 Drug: Potassium Chloride IV 20 mEq IV at calculated rate once; administer over 1-2 rs5 hours Route: IV; Rate: calculated rate; Site: right forearm; 19:19 Follow up: Response: No adverse reaction; IV Status: Completed infusion; IV Intake: db 100ml 16:45 Drug: NS 0.9% IV 1000 ml IV at 1000 ml once Route: IV; Rate: 1000 ml; Site: left db antecubital; 18:25 Follow up: Response: No adverse reaction; IV Status: Completed infusion; IV Intake: db 1000ml 17:35 Drug: NS 0.9% IV 1000 ml IV at 75 ml/hr continuous Route: IV; Rate: 75 ml/hr; Site: db left forearm; 19:19 Follow up: Response: No adverse reaction; IV Status: Completed infusion db 18:28 Drug: levofloxacin IVPB 750 mg 150 ml IVPB once over 90 mins Volume: 150 ml; Route: db IVPB; Infused Over: 90 mins; Site: right antecubital; 20:00 Follow up: Response: No adverse reaction; IV Status: Completed infusion; IV Intake: ha1 250ml 19:33 Drug: vancoMYCIN IVPB 1 grams IVPB once over 2 hrs Route: IVPB; Infused Over: 2 hrs; ha1 Site: left antecubital; 21:30 Follow up: Response: No adverse reaction; IV Status: Completed infusion; IV Intake: ha1 250ml 19:45 Drug: Norepinephrine IV 0.1 mcg/kg/min IV at calculated rate Per protocol; (Standard ha1 concentration 4 mg / 250 mL D5W); Recommended max rate 3 mcg/kg/min; Titrate 0.05 mcg/kg/min as often as every 5 minutes to achieve goal (see titration policy); Goal parameter MAP greater than 65 mmHg. Route: IV; Rate: calculated rate; Site: right femoral; 20:30 Follow up: Response: No adverse reaction; IV Status: Infusion continued ha1 Medication: 15:17 VIS not applicable for this client. db Point of Care Testing: Blood Glucose: 14:59 Blood Glucose: 428 mg/dL; db 18:20 Blood Glucose: 322 mg/dL; db Ranges: Intake: 17:36 IV: 1000ml; Total: 1000ml. db 18:25 IV: 1000ml; Total: 2000ml. db 19:19 IV: 100ml; Total: 2100ml. db 20:00 IV: 250ml; Total: 2350ml. ha1 21:30 IV: 250ml; Total: 2600ml. ha1 Output: 17:30 Urine: 750ml (Voided); Total: 750ml. db Outcome: 18:23 Decision to Hospitalize by Provider. rn 22:25 Condition: stable ha1 22:25 Admitted to ICU accompanied by nurse, via stretcher, room 7, on monitor, with chart, ha1 Report called to terll Hopson 22:25 Instructed on the need for admit, 22:28 Patient left the ED. jb4 Signatures: Dispatcher [employer] EDMS Param Walden MD MD rn Bryson, James, RN RN jb4 Freddie Black Heidy, RN RN ha1 Gay Chavez RN RN db Gregorio Pelaez RN RN rs5 Gay Chavez RN db Corrections: (The following items were deleted from the chart) 16:43 14:54 Reassessment: SEE TRIAGE FOR INITIAL ASSESSMENT db rs5
[2023-07-15 18:27] LABS: PT Prothrombin Time 11.4 SECONDS (9.5-12.5); PTT, Activated Partial Thromb 29.2 SECONDS (24.3-36.9); Protime INR 1.04
[2023-07-15] MEDS ORDERED: NA CHLORIDE 0.9% 250 ML ONE (18:29)
[2023-07-15] MEDS ORDERED: VANCOMYCIN 1 GM/VIAL ONE (18:29)
[2023-07-15] MEDS ORDERED: Levofloxacin 750mg IV 750 MG/150 ML BAG IV ONE (18:29)
[2023-07-15] MEDS ORDERED: NOREPINEPHRINE BITARTRATE/D5W 4 MG/250 ML BAG IV ONE (19:18)
[2023-07-15] MEDS ORDERED: ONDANSETRON 4 MG/2 ML VIAL IV PRN (20:14)
--- NOTE | 2023-07-15 20:26 | P.HP ---
Certification for Inpatient Patient admitted to: Inpatient <Renetta Kolb - Last Filed: 07/16/23 05:02> Patient History Date of Service: 07/16/23 Reason for admission: Hyperglycemia, hypotension History of Present Illness: 33-year-old male with a past medical history of diabetes type 1 presents to the emergency room with hyperglycemia. He reports polydipsia, polyuria. He reports having similar symptoms in the past. He reports blood sugars were high today. He denies fever, cough, abdominal pain, nausea vomiting diarrhea. Blood glucose 428, vital sign BP 88 / 68; Pulse 96; Resp 12; Pulse Ox 97% on R/A; patient was treated with sepsis bolus, x 3 later was still hypotensive. Central line was placed in the emergency room, was started on a Levophed drip for hypotension. Patient with evidence of colitis and pneumonia. Plan to admit to ICU for septic shock, right upper lobe pneumonia. Chest x-ray IMPRESSION: Mild patchy right upper lung opacities, suggesting early pneumonitis. CT of the abdomen pelvis IMPRESSION: Diffuse body wall edema and edema throughout the retroperitoneum with trace effusions. Findings may relate to fluid overload. Patchy airspace opacities in the right lung as above, concerning for pneumonia. Fluid filling of the ascending and transverse colon, nonspecific, and may relate to colitis or diarrheal state. Subtle mural gas along the rivas of the ascending colon, nonspecific, could relate to ongoing colitis, either infectious/inflammatory or possibility of ischemia should be considered. - Past Medical/Surgical History Diabetic: Yes -: Type 1 diabetes mellitus -: Nicotine dependence -: None Psychosocial/ Personal History: , lives at home with - Family History Father -: Diabetes - Social History Alcohol use: No CD- Drugs: No Caffeine use: Yes <Renetta Kolb - Last Filed: 07/16/23 05:02> Date of Service: 07/16/23 <Nesha Howard - Last Filed: 07/16/23 22:23> Allergies amoxicillin Allergy (Intermediate, Verified 04/12/23 05:12) Itching/Hives/Rash Home Medications: Insulin Detemir [Levemir] 20 units SQ BID 30 Days #15 ml 04/14/23 Review of Systems per HPI <Renetta Kolb - Last Filed: 07/16/23 05:02> Physical Examination - Physical Exam General: Alert, In no apparent distress, Oriented x3, Other (thin) HEENT: Atraumatic, Normocephalic Neck: Supple, JVD not distended Respiratory: Normal air movement, Diminished (RLL) Cardiovascular: Normal pulses, Regular rate/rhythm, Other (Hypotensive) Gastrointestinal: Non-distended, Tenderness Musculoskeletal: No clubbing, No swelling Integumentary: Other (multiple skin abrasions bue, ble) Neurological: Normal speech, Normal strength at 5/5 x4 extr - Studies Laboratory Data (last 24 hrs) 07/15/23 07/15/23 07/15/23 17:50 15:03 15:03 WBC Hgb Hct Plt Count PT 11.4 INR 1.04 APTT 29.2 Sodium 130 L Cancelled Potassium 2.5 L* Cancelled BUN 10 Cancelled Creatinine 0.57 L Cancelled Glucose 405 H* Cancelled Total Bilirubin 0.2 AST < 10 L ALT 30 Alkaline Phosphatase 86 Lipase 24 07/15/23 15:03 WBC 12.40 H Hgb 7.5 L Hct 23.2 L Plt Count 390 PT INR APTT Sodium Potassium BUN Creatinine Glucose Total Bilirubin AST ALT Alkaline Phosphatase Lipase <Renetta Kolb - Last Filed: 07/16/23 05:02> Assessment and Plan - Plan Assessment plan Septic shock likely secondary to pneumonia versus colitis acute Acute hypoxic respiratory failure secondary to pneumonia acute vital sign BP 88 / 68; Pulse 96; Resp 12; Pulse Ox 97% on R/A; patient was treated with sepsis bolus, x 3 later was still hypotensive. Central line was placed in the emergency room, was started on a Levophed drip for hypotension. Patient with evidence of colitis and pneumonia. Plan to admit to ICU for septic shock, right upper lobe pneumonia. Chest x-ray IMPRESSION: Mild patchy right upper lung opacities, suggesting early pneumonitis. CT of the abdomen pelvis IMPRESSION: Diffuse body wall edema and edema throughout the retroperitoneum with trace effusions. Findings may relate to fluid overload. Patchy airspace opacities in the right lung as above, concerning for pneumonia. Fluid filling of the ascending and transverse colon, nonspecific, and may relate to colitis or diarrheal state. Subtle mural gas along the rivas of the ascending colon, nonspecific, could relate to ongoing colitis, either infectious/inflammatory or possibility of ischemia should be considered Pulmonary consult, IV antibiotics, vancomycin, Levaquin Levophed, Nebs, O2 keep sats greater than 90 Trend lactic WBC 12.40 Microcytic anemia Colitis acute Crohn's disease, Dr. Velasco consult colitis/worsening anemia Type and cross, transfuse less than 7 Hemoglobin 7.5/23 point Checked in the emergency room stools negative for bleeding Lipase normal at 24 diabetes type 1 with hyperglycemia- Accu-Chek every 6, high sliding scale insulin Resume home long-acting insulin presents to the emergency room with hyperglycemia. He reports polydipsia, polyuria. He reports having similar symptoms in the past. He reports blood sugars were high today. He denies fever, cough, abdominal pain, nausea vomiting diarrhea. Blood glucose 428, beta hydroxybutyrate 0.76 UA 4+ glucosuria Multiple skin of right abrasion bilateral upper extremity bilateral lower extremity skin abrasion Likely secondary to uncontrolled type diabetes Full code Diet n.p.o. except ice chips SCDs- Disposition Home independent prior Discharge Plan: Home - Advance Directives Does patient have a Living Will: No Does patient have a Durable POA for Healthcare: Yes Critical Care: Yes Time Spent Managing Pts Care (In Minutes): 65 <Renetta Kolb - Last Filed: 07/16/23 05:02> - Plan Pt seen and examined. I agree with the note by the HARDWARE SALES ASSISTANT. Pt is a 33 yo male with past medical history of DM I and anemia who presents with septic shock due to hyperglycemia, pna and colitis. CT abd shows colitis in the transverse and ascending colon. Pt has strong family hx of crohn's disease. Will r/o C diff. Consulted GI. <Nesha Howard - Last Filed: 07/16/23 22:23>
[2023-07-15 21:41] LABS: Anion Gap 5.6 mEq/L (5.0-15.0); Magnesium 1.8 mg/dL (1.6-2.4)
[2023-07-15 21:43] LABS: Potassium 2.6 mEq/L (3.5-5.1)
[2023-07-15] MEDS ORDERED: ALBUTEROL 2.5 MG/3 ML NEB SOL NEB PRN (22:49)
[2023-07-15] MEDS: Levofloxacin 750mg IV 750 MG/150 ML BAG IV SCH (22:51)
[2023-07-15 22:52] VITALS: BMI 17.2
[2023-07-15] MEDS: NA CHLORIDE 0.9% 1,000 ML ONE (22:54)
[2023-07-15] MEDS ORDERED: NA CHLORIDE 0.9% 1,000 ML IV SCH (23:00)
[2023-07-15] MEDS: LORazepam 2 MG/ML VIAL IV ONE (23:00)
[2023-07-15] MEDS: KCL 20 MEQ/100 mL IVPB 20 MEQ/100 ML BAG IV SCH (23:00)
[2023-07-15] MEDS: NA CHLORIDE 0.9% 100 ML ONE (23:12)
[2023-07-15] MEDS: INSULIN REGULAR (HUMAN) 100 UNIT/ML ONE (23:17)
[2023-07-15] MEDS: INSULIN REGULAR (HUMAN) 100 UNIT/ML SQ SCH (23:20)
[2023-07-15] MEDS: INSULIN GLARGINE 100 UNIT/ML SQ SCH (23:20)
[2023-07-15] MEDS: NOREPINEPHRINE 4 MG in D5W 250 ML IV SCH (23:50)
[2023-07-16 04:51] LABS: Absolute Basophils 0.1 K/uL (0-0.5); Absolute Lymphocytes (CBC) 1.5 K/uL (0.7-4.9); Absolute Monocytes 0.5 K/uL (0.1-1.3); Basophils % 0.8 % (0-1.3); Eosinophils % 0.4 % (0-4.4); Hematocrit 22.4 % (39.6-49.0); Hemoglobin 7.3 g/dL (13.6-17.9); Lymphocytes % 14.7 % (15.3-44.8); MCH 25.5 pg (27.0-35.0); MCHC 32.5 g/dL (32.0-36.0); MCV 78.5 fL (80-100); MPV 7.2 fL (7.6-11.3); Neutrophils % 79.1 % (41.7-73.7); Platelets 443 thou/uL (152-406); RBC Red Blood Cell Count 2.86 M/uL (4.33-5.43); Red Cell Distribution Width 16.3 % (12.1-15.2)
[2023-07-16 05:08] LABS: Anion Gap 5.1 mEq/L (5.0-15.0); Potassium 3.1 mEq/L (3.5-5.1)
[2023-07-16] MEDS: KCL 20 MEQ/100 mL IVPB 20 MEQ/100 ML BAG IV SCH ×2 (05:25)
[2023-07-16] MEDS: VANCOMYCIN 1 GM in NA CHLORIDE 0.9% 250 ML IVPB SCH (08:00)
[2023-07-16 08:44] LABS: Anion Gap 4.2 mEq/L (5.0-15.0); Magnesium 1.8 mg/dL (1.6-2.4); Potassium 3.2 mEq/L (3.5-5.1)
[2023-07-16] MEDS: POTASSIUM CL SA 10 MEQ TAB PO SCH (08:53)
[2023-07-16] MEDS: INSULIN GLARGINE 100 UNIT/ML SQ SCH (08:57)
[2023-07-16] MEDS ORDERED: VANCOMYCIN 1 GM in NA CHLORIDE 0.9% 250 ML IVPB SCH (09:00)
--- NOTE | 2023-07-16 10:59 | P.PN ---
Subjective Date of Service: 07/16/23 Chief Complaint: Hyperglycemia, hypotension Pt is resting comfortably in bed. He is asking for food. BP is hypotensive. Still on levophed. Waiting for GI eval. Blood sugar is better. Will replete potassium. CT scan is concerning for RUL opacity and colitis in the transverse and ascending colon. No other complaints. Review of Systems General: Unremarkable Eyes: Unremarkable ENT: Unremarkable Respiratory: Unremarkable Cardiovascular: Unremarkable Gastrointestinal: Unremarkable Genitourinary: Unremarkable Musculoskeletal: Unremarkable Neurological: Unremarkable Lymphatics: Unremarkable Physical Examination - Vital Signs Temperature: 98.8 F Blood Pressure: 98/54 Pulse: 94 Respirations: 12 Pulse Ox (%): 100 - Physical Exam General: Alert, In no apparent distress, Oriented x3, Cachectic HEENT: Atraumatic, Normocephalic, PERRLA Neck: Supple, 2+ carotid pulse no bruit, JVD not distended Respiratory: Clear to auscultation bilaterally, Normal air movement Cardiovascular: No edema, Normal pulses, Regular rate/rhythm, Normal S1 S2 Capillary refill: <2 Seconds Gastrointestinal: Normal bowel sounds, Soft and benign, Non-distended Musculoskeletal: No clubbing, No swelling Integumentary: No rashes, No breakdown Neurological: Normal speech, Normal strength at 5/5 x4 extr, Normal tone, Sensation intact, Cranial nerves 3-12 intact Lymphatics: No axilla or inguinal lymphadenopathy - Studies Laboratory Data (last 24 hrs) 07/15/23 07/15/23 07/15/23 17:50 15:03 15:03 WBC Hgb Hct Plt Count PT 11.4 INR 1.04 APTT 29.2 Sodium 130 L Cancelled Potassium 2.5 L* Cancelled BUN 10 Cancelled Creatinine 0.57 L Cancelled Glucose 405 H* Cancelled Total Bilirubin 0.2 AST < 10 L ALT 30 Alkaline Phosphatase 86 Lipase 24 07/15/23 15:03 WBC 12.40 H Hgb 7.5 L Hct 23.2 L Plt Count 390 PT INR APTT Sodium Potassium BUN Creatinine Glucose Total Bilirubin AST ALT Alkaline Phosphatase Lipase Assessment And Plan - Plan Septic shock likely secondary to pneumonia versus acute colitis: Per CT abd. Will continue levophed, flagyl and levaquin. Keep MAP > 65. WBC is 10.1 <- 12.4. Will trend lactate and f/u C diff toxin Chest x-ray IMPRESSION: Mild patchy right upper lung opacities, suggesting early pneumonitis. CT of the abdomen pelvis IMPRESSION: Diffuse body wall edema and edema throughout the retroperitoneum with trace effusions. Findings may relate to fluid overload. Patchy airspace opacities in the right lung as above, concerning for pneumonia. Fluid filling of the ascending and transverse colon, nonspecific, and may relate to colitis or diarrheal state. Subtle mural gas along the rivas of the ascending colon, nonspecific, could relate to ongoing colitis, either infectious/inflammatory or possibility of ischemia should be considered Microcytic anemia/ Iron def anemia: Hgb is 7.3. Will f/u iron studies. MCV is low ( 75). Continue ferrous sulfate. Will transfuse when Hgb < 7. Colitis acute/ Crohn's disease: CT abd shows colitis in the ascending and transverse colon. Pt has strong family history of Crohn's disease. Consulted GI. Lipase normal at 24 Hypokalemia: K is 3.1. Will replete and monitor. Diabetes type 1 with hyperglycemia: Blood sugar is under control. Will continue accuchek, SSI, lantus 20u BID, and ADA diet. On admission, blood glucose was 428, beta hydroxybutyrate 0.76 with UA 4+ glucosuria Multiple skin abrasions: Located on bilateral upper extremity and bilateral lower extremity. DVT ppx: SCD Code: full Dispo: Pending hospital course.
[2023-07-16] MEDS: METRONIDAZOLE 500mg IVPB 500 MG/100 ML BAG IV SCH (12:00)
--- NOTE | 2023-07-16 13:08 | EKG ---
Test Date: 2023-07-15 Test Time: 14:55:33 Carding Supervisor: JILLIAN MEASUREMENT RESULTS: Intervals: Rate: 98 HI: 146 QRSD: 94 QT: 388 QTc: 495 [place]: P: 72 HI: 146 QRS: 76 T: 86 INTERPRETIVE STATEMENTS: Normal sinus rhythm Nonspecific ST abnormality Prolonged QT Abnormal ECG Compared to ECG 04/12/2023 00:21:24 ST (T wave) deviation now present First degree AV block no longer present Atrial abnormality no longer present T-wave abnormality no longer present Electronically Signed On 07-16-23 13:06:24 CDT by Milo Elizabeth
--- NOTE | 2023-07-16 15:53 | CON ---
Date of Consultation: 07/16/2023 Reason For Consultation: Colitis with diarrhea. History Of Present Illness: The patient is a 33-year-old white male with history of type 1 diabetes and tobacco abuse, came to the hospital not feeling well. Found to have diabetic ketoacidosis. Also found to have right upper and right lower lobe pneumonia by CT scan and chest x-ray. Sepsis with a white count of 12.4 down to 10.[address] scan revealing fluid filled ascending, transverse col on with subtle mural gas findings in the ascending colon wall suspicious for infection, ischemia, or other. Of note, the patient has 3 maternal aunts who have Crohn disease. He has never been diagnose d with this. He says he has had diarrhea over the past 3 years, has increased somewhat recently. He says the diarrhea can be decreased, he gets somewhat constipated if he eats cottage cheese. He does smoke tobacco a pack per day for many years. Past Medical History: Significant for diabetes type 1 since the age of 20 and tobacco abuse. Medications: He says he takes diabetic medications at home. He does not know what those are. Allergies: AMOXICILLIN. 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 Positive for tobacco 1 pack per day. No alcohol. Family History: Father alive with diabetes type 2, coronary artery disease, myocardial infarction an d a stent in his leg. Mother has no major diseases as he reports. However, mother has 3 of 7 sister s who are positive for Crohn disease by his verbal report today. is at bedside. Physical Examination: Vital Signs: The patient is 5 foot 11, 123 pounds, BMI 17 kg/m2. He has a temperature of 98.8 degre es Fahrenheit, pulse 94, respirations 12, blood pressure 90/54, O2 saturation 100%. General: He is a thin male, lying in bed, in no acute distress. HEENT: Normocephalic, atraumatic. Anicteric. Pupils equal, round, and reactive to light. Extraocu lar movements are intact. Oropharynx is clear. Neck: Supple. No masses. Respiratory: Clear to auscultation bilaterally. Cardiac: Regular rate and rhythm. No gallops. Abdomen: Positive bowel sounds. Soft, nontender, nondistended. No hepatosplenomegaly. No peritone al or Lawson sign. No rebound. Extremities: No clubbing, cyanosis, or edema. 2+ pulses. Neuro: Alert and oriented x3. Grossly nonfocal. 5/5 motor. Sensation intact to light touch. Data: The patient's white count of 12.4, down to 10.1 today, hemoglobin 7.5, down to 7.3, hematocrit of 22.4, MCV of 79, platelet count of 443, polys of 79%, lymphs 15%, monocytes 5%. PT of 11.4, INR of 1.04, PTT of 29.2. Had a blood gas 7.41, pCO2 of 48, PaO2 of 72, bicarb on room air. He had a sodium 137, potassium 3.2, chloride 104, bicarb 32, BUN 4, creatinine of 0.3, glucose 122. Hemoglobin A1c greater than 14. Calcium 7.9, magnesium 1.8. On admission, he had a glucose of 405. Lactic acid less than 0.8. . AST of less than 10, ALT of 30, alkaline phosphatase 86, to brittaney protein 5.5, albumin 2.6, lipase 24. Beta hydroxybutyrate acetoacetate was 0.76, which was eleva cj. UA showed 2+ ketones, 4+ glucose, specific gravity 1.028, pH is 5.5. CT scan reveals fluid meg l in the ascending transverse colon secondary to colitis or diarrhea or other. Subtle gas findings o n the rivas of ascending colon consistent with colitis due to infection, ischemia, or other. Also ri ght lower lobe pneumonia noted on the CT finding and on chest x-ray, he had a right upper lobe infilt rate consistent with possible right upper lobe pneumonia. Impression: 1.Colitis. CT scan revealing fluid filled ascending transverse consistent with possible colitis wit h diarrhea. Subtle mural gas finding in ascending colon consistent with possible infection, ischemic or other. The patient reports diarrhea over the past 3 years, increased recently, somewhat better a fter eating cottage cheese. He also has a right lower lobe pneumonia. 2.Right lower lobe pneumonia on CT scan, abdomen, pelvis, right upper lobe pneumonia on chest x-ray. 3.Sepsis. White count 12.4, down to 10.1 overnight with IV antibiotics, polys of 88% down to 79%, o n antibiotics. 4.Diabetic ketoacidosis with history of diabetes type 1, probably induced by infection and poor diab etes control. 5.History of diabetes type 1 since 20 years of age. 6.History of tobacco abuse. Recommendation: 1.Continue IV fluids and DKA resuscitation. 2.Continue IV antibiotics, p.o. antibiotics as indicated if C diff diagnosed. 3.Check stool studies. 4.Check IBD panel with family history of Crohn disease in 3 maternal aunts. 5.Consider colonoscopy with biopsies as indicated and also EGD and further small bowel evaluation if Crohn's is highly suspected. LUCAS/NINFA Voice ID: [id number] Report ID: [id number]
[2023-07-16] MEDS: INSULIN REGULAR (HUMAN) 100 UNIT/ML ONE (20:11)
[2023-07-16] MEDS: FERROUS SULFATE 325 MG TAB PO SCH (20:13)
[2023-07-16] MEDS: ZOLPIDEM TARTRATE 5 MG TABLET PO PRN (21:51)
[2023-07-17] MEDS: LORazepam 2 MG/ML VIAL IV ONE (01:08)
[2023-07-17 01:49] LABS: C.diff Antigen/Toxin Ag neg : Tox neg (NEG : NEG); CDIFF INTERNAL NEG CONTROL White Background (WHITE BKGD); STOOL CONSISTENCY Liquid/Semi-Solid
[2023-07-17 05:15] LABS: Absolute Lymphocytes (CBC) 1.4 K/uL (0.7-4.9); Absolute Monocytes 0.5 K/uL (0.1-1.3); Absolute Neutrophil 4.8 K/uL (1.8-8.0); Basophils % 0.6 % (0-1.3); Eosinophils % 0.6 % (0-4.4); Hematocrit 22.1 % (39.6-49.0); Hemoglobin 6.9 g/dL (13.6-17.9); Lymphocytes % 20.7 % (15.3-44.8); MCHC 31.3 g/dL (32.0-36.0); MCV 79.9 fL (80-100); MPV 7.1 fL (7.6-11.3); Monocytes % 7.9 % (3.3-12.3); Neutrophils % 70.2 % (41.7-73.7); Nucleated Red Blood Cells % 0.1 % (0-0); Platelets 375 thou/uL (152-406); RBC Red Blood Cell Count 2.76 M/uL (4.33-5.43); Red Cell Distribution Width 16.4 % (12.1-15.2)
[2023-07-17 05:21] LABS: Anion Gap 6.1 mEq/L (5.0-15.0); Magnesium 2.1 mg/dL (1.6-2.4); Phosphorus 1.6 mg/dL (2.5-4.9); Potassium 4.1 mEq/L (3.5-5.1)
[2023-07-17] MEDS: NOREPINEPHRINE BITARTRATE/D5W 4 MG/250 ML BAG IV ONE (06:29)
[2023-07-17] MEDS ORDERED: POTASS/SODIUM PHOSPHATE 1 PKT POWD.PACK PO SCH (08:00)
[2023-07-17 08:25] LABS: Ferritin 7.2 ng/mL (26-388)
[2023-07-17] MEDS: INSULIN REGULAR (HUMAN) 100 UNIT/ML SQ SCH (08:28)
[2023-07-17] MEDS: POTASS/SODIUM PHOSPHATE 1 PKT POWD.PACK PO SCH (08:28)
[2023-07-17] MEDS: NA CHLORIDE 0.9% 100 ML ONE ×2 (10:00→13:35)
--- NOTE | 2023-07-17 10:10 | P.PN ---
Subjective Date of Service: 07/17/23 Chief Complaint: Hyperglycemia, hypotension Pt is resting comfortably in bed. Hemoglobin dropped to 6.9. Will give blood. Pt still has abd pain. C diff is negative. Waiting for GI recommendation. BP is hypotensive. Still on levophed. CT scan is concerning for RUL opacity and colitis in the transverse and ascending colon. No other complaints. Review of Systems General: Unremarkable Eyes: Unremarkable ENT: Unremarkable Respiratory: Unremarkable Gastrointestinal: Abdominal Pain Genitourinary: Unremarkable Musculoskeletal: Unremarkable Integumentary: Unremarkable Neurological: Unremarkable Lymphatics: Unremarkable Physical Examination - Vital Signs Temperature: 98.0 F Blood Pressure: 113/77 Pulse: 104 Respirations: 16 Pulse Ox (%): 96 - Physical Exam General: Alert, In no apparent distress, Oriented x3 HEENT: Atraumatic, Normocephalic, PERRLA Neck: Supple, 2+ carotid pulse no bruit, JVD not distended Respiratory: Clear to auscultation bilaterally, Normal air movement, Diminished Cardiovascular: No edema, Normal pulses, Regular rate/rhythm, Normal S1 S2 Capillary refill: <2 Seconds Gastrointestinal: Normal bowel sounds, Soft and benign, Non-distended, Tenderness Musculoskeletal: No clubbing, No swelling, No contractures Integumentary: No rashes, No breakdown Neurological: Normal speech, Normal strength at 5/5 x4 extr, Normal tone, Sensation intact Lymphatics: No axilla or inguinal lymphadenopathy Assessment And Plan - Plan Septic shock likely secondary to pneumonia versus acute colitis: Per CT abd. Will continue levophed, flagyl and levaquin. Keep MAP > 65. WBC is 6.9<- 10.1 <- 12.4. C. diff is negative. Will trend lactate. Will follow up GI recommendation. Chest x-ray IMPRESSION: Mild patchy right upper lung opacities, suggesting early pneumonitis. CT of the abdomen pelvis IMPRESSION: Diffuse body wall edema and edema throughout the retroperitoneum with trace effusions. Findings may relate to fluid overload. Patchy airspace opacities in the right lung as above, concerning for pneumonia. Fluid filling of the ascending and transverse colon, nonspecific, and may relate to colitis or diarrheal state. Subtle mural gas along the rivas of the ascending colon, nonspecific, could relate to ongoing colitis, either infectious/inflammatory or possibility of ischemia should be considered Microcytic anemia/ Iron def anemia: Hgb is 6.9<- 7.3. Will give 2 units of blood. Will f/u iron studies. MCV is low ( 75). Continue ferrous sulfate. Will transfuse when Hgb < 7. Colitis acute/ Crohn's disease: CT abd shows colitis in the ascending and transverse colon. Pt has strong family history of Crohn's disease. Consulted GI. Lipase normal at 24 Hypokalemia: K is 4.1<- 3.1. Will monitor. Diabetes type 1 with hyperglycemia: Blood sugar is under control. Will continue accuchek, SSI, lantus 20u BID, and ADA diet. On admission, blood glucose was 428, beta hydroxybutyrate 0.76 with UA 4+ glucosuria Multiple skin abrasions: Located on bilateral upper extremity and bilateral lower extremity. DVT ppx: SCD Code: full Dispo: Pending hospital course.
[2023-07-17 19:30] LABS: Hematocrit 29.3 % (39.6-49.0); Hemoglobin 9.4 g/dL (13.6-17.9)
[2023-07-18 04:52] LABS: Absolute Basophils 0.1 K/uL (0-0.5); Absolute Lymphocytes (CBC) 1.3 K/uL (0.7-4.9); Absolute Monocytes 0.6 K/uL (0.1-1.3); Absolute Neutrophil 5.4 K/uL (1.8-8.0); Basophils % 0.9 % (0-1.3); Eosinophils % 0.5 % (0-4.4); Hematocrit 33.5 % (39.6-49.0); Hemoglobin 10.6 g/dL (13.6-17.9); Lymphocytes % 17.9 % (15.3-44.8); MCH 25.8 pg (27.0-35.0); MCHC 31.6 g/dL (32.0-36.0); MCV 81.7 fL (80-100); MPV 7.2 fL (7.6-11.3); Monocytes % 8.2 % (3.3-12.3); Neutrophils % 72.5 % (41.7-73.7); Platelets 344 thou/uL (152-406); Red Cell Distribution Width 17.5 % (12.1-15.2)
[2023-07-18 05:08] LABS: Anion Gap 5.8 mEq/L (5.0-15.0); Potassium 3.8 mEq/L (3.5-5.1)
[2023-07-18] MEDS: POTASSIUM CL SA 10 MEQ TAB PO ONE (08:09)
--- NOTE | 2023-07-18 09:45 | P.PN ---
Subjective Date of Service: 07/18/23 Chief Complaint: Hyperglycemia, hypotension Pt is resting comfortably in bed. Hemoglobin improved to 10.6 from 6.9 s/p blood transfusion. Pt still has abd pain. C diff is negative. Waiting for GI recommendation. Pt is off levophed. CT scan is concerning for RUL opacity and colitis in the transverse and ascending colon. No other complaints. Review of Systems General: Unremarkable Eyes: Unremarkable ENT: Unremarkable Respiratory: Unremarkable Cardiovascular: Unremarkable Gastrointestinal: Unremarkable Genitourinary: Unremarkable Musculoskeletal: Unremarkable Integumentary: Unremarkable Neurological: Unremarkable Lymphatics: Unremarkable Physical Examination - Vital Signs Temperature: 98.0 F Blood Pressure: 95/62 Pulse: 95 Respirations: 20 Pulse Ox (%): 96 - Physical Exam General: Alert, In no apparent distress, Oriented x3 HEENT: Atraumatic, Normocephalic, PERRLA Neck: Supple, 2+ carotid pulse no bruit, JVD not distended Respiratory: Clear to auscultation bilaterally, Normal air movement Cardiovascular: No edema, Normal pulses, Regular rate/rhythm, Normal S1 S2 Capillary refill: <2 Seconds Gastrointestinal: Normal bowel sounds, Soft and benign, Non-distended Musculoskeletal: No clubbing, No swelling, No contractures Integumentary: No rashes, No breakdown, No significant lesion Neurological: Normal speech, Normal strength at 5/5 x4 extr, Normal tone, Sensation intact Lymphatics: No axilla or inguinal lymphadenopathy Assessment And Plan - Plan Septic shock likely secondary to pneumonia versus acute colitis: Per CT abd. Will continue levophed, flagyl and levaquin. Keep MAP > 65. WBC is 7.5<- 6.9<- 10.1 <- 12.4. C. diff is negative. Will trend lactate. Will follow up GI recommendation. Chest x-ray IMPRESSION: Mild patchy right upper lung opacities, suggesting early pneumonitis. CT of the abdomen pelvis IMPRESSION: Diffuse body wall edema and edema throughout the retroperitoneum with trace effusions. Findings may relate to fluid overload. Patchy airspace opacities in the right lung as above, concerning for pneumonia. Fluid filling of the ascending and transverse colon, nonspecific, and may relate to colitis or diarrheal state. Subtle mural gas along the rivas of the ascending colon, nonspecific, could relate to ongoing colitis, either infectious/inflammatory or possibility of ischemia should be considered Microcytic anemia/ Iron def anemia: Hgb is 10.6<- 6.9<- 7.3. s/p 2 units of blood. Will f/u iron studies. MCV is low ( 75). Continue ferrous sulfate. Will transfuse when Hgb < 7. Colitis acute/ Crohn's disease: CT abd shows colitis in the ascending and transverse colon. Pt has strong family history of Crohn's disease. Consulted GI. Lipase normal at 24 Hypokalemia: K is 3.8<- 4.1<- 3.1. Will monitor. Diabetes type 1 with hyperglycemia: Blood sugar is under control. Will continue accuchek, SSI, lantus 20u BID, and ADA diet. On admission, blood glucose was 428, beta hydroxybutyrate 0.76 with UA 4+ glucosuria Multiple skin abrasions: Located on bilateral upper extremity and bilateral lower extremity. DVT ppx: SCD Code: full Dispo: Pending hospital course.
[2023-07-18] MEDS: NA CHLORIDE 0.9% 1,000 ML IV SCH (16:10)
[2023-07-18 17:14] VITALS: O2SAT 100
[2023-07-19 05:19] LABS: Anion Gap 5.6 mEq/L (5.0-15.0)
[2023-07-19 05:21] LABS: Potassium 4.6 mEq/L (3.5-5.1)
[2023-07-19] MEDS ORDERED: D50W 25 GM/50 ML SYRINGE IV PRN (07:37)
[2023-07-19] MEDS ORDERED: GLUCAGON 1 MG/VIAL IM PRN (07:37)
[2023-07-19 08:58] VITALS: BP 114/86; TEMP 97.8
--- NOTE | 2023-07-19 10:12 | P.DS ---
Admission Date: 07/15/23 Discharge Date: 07/19/23 Disposition: ROUTINE DISCHARGE Discharge Condition: GOOD Reason for Admission: Hyperglycemia, hypotension Brief History of Present Illness: 33-year-old male with a past medical history of diabetes type 1 presents to the emergency room with hyperglycemia. He reports polydipsia, polyuria. He reports having similar symptoms in the past. He reports blood sugars were high today. He denies fever, cough, abdominal pain, nausea vomiting diarrhea. Blood glucose 428, vital sign BP 88 / 68; Pulse 96; Resp 12; Pulse Ox 97% on R/A; patient was treated with sepsis bolus, x 3 later was still hypotensive. Central line was placed in the emergency room, was started on a Levophed drip for hypotension. Patient with evidence of colitis and pneumonia. Plan to admit to ICU for septic shock, right upper lobe pneumonia. Chest x-ray IMPRESSION: Mild patchy right upper lung opacities, suggesting early pneumonitis. CT of the abdomen pelvis IMPRESSION: Diffuse body wall edema and edema throughout the retroperitoneum with trace effusions. Findings may relate to fluid overload. Patchy airspace opacities in the right lung as above, concerning for pneumonia. Fluid filling of the ascending and transverse colon, nonspecific, and may relate to colitis or diarrheal state. Subtle mural gas along the rivas of the ascending colon, nonspecific, could relate to ongoing colitis, either infectious/inflammatory or possibility of ischemia should be considered. Hospital Course: Pt is a 33yo male with past medical history of diabetes type 1 who presented with hyperglycemia. On admission blood sugar was 428, vital sign BP 88 / 68; Pulse 96; Resp 12; Pulse Ox 97% on R/A. We gave pt 3L bolus and he remained hypotensive. CT chest and abd showed RLL pneumonia and colitis. C diff was negative. He was admitted in the ICU for septic shock due to pna and colitis. We gave levophed. GI evaluated pt for the colitis and recommended outpt follow up for colonoscopy after resolution of infection. We also started ferrous sulfate for iron deficiency anemia and repleted potassium. Pt was in NAD prior ot discharge. Vital Signs/Physical Exam: Temp Pulse Resp BP Pulse Ox 97.8 F 93 H 14 114/86 100 07/19/23 08:00 07/19/23 08:00 07/19/23 08:00 07/19/23 08:00 07/19/23 08:00 Laboratory Data at Discharge: WBC 7.50 thou/uL (4.3-10.9) 07/18/23 04:07 Hgb 10.6 g/dL (13.6-17.9) L D 07/18/23 04:07 Hct 33.5 % (39.6-49.0) L 07/18/23 04:07 Plt Count 344 thou/uL (152-406) 07/18/23 04:07 PT 11.4 SECONDS (9.5-12.5) 07/15/23 17:50 INR 1.04 07/15/23 17:50 APTT 29.2 SECONDS (24.3-36.9) 07/15/23 17:50 Sodium 132 mEq/L (136-145) L D 07/19/23 04:42 Potassium 4.6 mEq/L (3.5-5.1) D 07/19/23 04:42 BUN 10 mg/dL (7-18) 07/19/23 04:42 Creatinine 0.45 mg/dL (0.70-1.30) L 07/19/23 04:42 Glucose 270 mg/dL (74-106) H 07/19/23 04:42 Phosphorus 1.6 mg/dL (2.5-4.9) L 07/17/23 04:46 Magnesium 2.1 mg/dL (1.6-2.4) 07/17/23 04:46 Total Bilirubin 0.2 mg/dL (0.2-1.0) 07/15/23 15:03 AST < 10 U/L (15-37) L 07/15/23 15:03 ALT 30 U/L (16-61) 07/15/23 15:03 Alkaline Phosphatase 86 U/L (45-117) 07/15/23 15:03 Lipase 24 U/L (13-75) 07/15/23 15:03 Home Medications: Ferrous Sulfate [Ferrous Sulfate*] 325 mg PO BID 30 Days #60 tab 07/19/23 Insulin Detemir [Levemir] 25 units SQ BID 30 Days #15 ml 07/19/23 levoFLOXacin [Levaquin] 500 mg PO DAILY 6 Days #6 tab 07/19/23 metroNIDAZOLE [Flagyl] 500 mg PO Q8H 6 Days #18 tab 07/19/23 New Medications: Ferrous Sulfate [Ferrous Sulfate*] 325 mg PO BID 30 Days #60 tab metroNIDAZOLE [Flagyl] 500 mg PO Q8H 6 Days #18 tab levoFLOXacin [Levaquin] 500 mg PO DAILY 6 Days #6 tab Insulin Detemir [Levemir] 25 units SQ BID 30 Days #15 ml Physician Discharge Instructions: Continue ad jaun activity. Take Home meds as prescribed. Take levaquin and flagyl for 6 more days. Follow up with PCP and GI within 1 - 2 weeks Followup: NONE,NONE [Primary Care Provider] - Idris Faust MD [ASSOCIATE-ACTIVE - CAN ADMIT] -
[2023-07-19] MEDS ORDERED: INSULIN LISPRO 100 UNIT/ML SQ SCH (11:30)
== END 2023-07-19 12:13 | disposition home or self-care (01) | DRG 871 ==
LOC: ER 14:49 → ERHOLD 20:12 → 3RD-ICU 20:53 → 2ND 07-18 17:40
PROVIDERS: ADMIT Hospitalist; ATTEND Hospitalist
PROC: 06HY33Z Insertion of Infusion Device into Lower Vein, Percutaneous Approach (ICD-10-PCS; principal; 2023-07-15)
PROC: 30233N1 Transfusion of Nonautologous Red Blood Cells into Peripheral Vein, Percutaneous Approach (ICD-10-PCS; 2023-07-17)
PROC: 3E033XZ Introduction of Vasopressor into Peripheral Vein, Percutaneous Approach (ICD-10-PCS; 2023-07-17)
DX: A41.9 Sepsis, unspecified organism (principal); E10.10 Type 1 diabetes mellitus with ketoacidosis without coma; J18.9 Pneumonia, unspecified organism; R65.21 Severe sepsis with septic shock; J96.01 Acute respiratory failure with hypoxia; A09 Infectious gastroenteritis and colitis, unspecified; K50.90 Crohn's disease, unspecified, without complications; R64 Cachexia; Z68.1 Body mass index [BMI] 19.9 or less, adult; E87.6 Hypokalemia; D50.9 Iron deficiency anemia, unspecified; E86.9 Volume depletion, unspecified; I95.9 Hypotension, unspecified; S80.812A Abrasion, left lower leg, initial encounter; S80.811A Abrasion, right lower leg, initial encounter; Z79.4 Long term (current) use of insulin; Z88.1 Allergy status to other antibiotic agents; Z79.899 Other long term (current) drug therapy
CPT/HCPCS: 36415; 71045; 74177; 80048; 80053; 81003; 82010; 82728; 82805; 82947; 83036; 83540; 83605; 83690; 83735; 84100; 84466; 85014; 85018; 85025; 85610; 85730; 86850; 86900; 86901; 86920; 87040; 87045; 87046; 87177; 87209; 87324; 89055; 93005; 99285; J1815; J3480; J7030; J7050; P9016; Q9967

== ENCOUNTER 2023-12-25 17:08 | Emergency (ER) | payer OTHER ==
[2023-12-25] MEDS ORDERED: NA CHLORIDE 0.9% 1,000 ML ONE ×2 (17:22→19:24)
[2023-12-25 17:42] LABS: Absolute Lymphocytes (CBC) 0.6 K/uL (0.7-4.9); Absolute Monocytes 0.6 K/uL (0.1-1.3); Absolute Neutrophil 13.7 K/uL (1.8-8.0); Basophils % 0.3 % (0-1.3); Hematocrit 28.6 % (39.6-49.0); Hemoglobin 9.3 g/dL (13.6-17.9); MCH 28.5 pg (27.0-35.0); MCHC 32.5 g/dL (32.0-36.0); MCV 87.9 fL (80-100); MPV 5.9 fL (7.6-11.3); Monocytes % 4.1 % (3.3-12.3); Neutrophils % 91.6 % (41.7-73.7); Platelets 501 thou/uL (152-406); RBC Red Blood Cell Count 3.25 M/uL (4.33-5.43); Red Cell Distribution Width 14.8 % (12.1-15.2)
--- NOTE | 2023-12-25 17:44 | RAD REPORT ---
EXAMINATION: ONE VIEW CHEST XR CLINICAL INDICATION: CHEST PAIN TECHNIQUE: Frontal chest projection is submitted. Examination is limited by patient positioning and t echnique. COMPARISON: 12/25/2023 FINDINGS: There is significant opacification of the left lung with loculated pleural fluid collection also pres ent left thoracic cage. This could be infectious or neoplastic. The heart is normal in size. CT chest recommended for further evaluation.
[2023-12-25 18:02] LABS: Albumin 2.1 g/dL (3.4-5.0); Albumin/Globulin Ratio 0.5 (1.1-1.8); Alkaline Phosphatase 121 U/L (45-117); Anion Gap 14.6 mEq/L (5.0-15.0); BETA HYDROXYBUTYRATE 3.52 mmol/L (0.02-0.27); BUN Blood Urea Nitrogen 6 mg/dL (7-18); Bicarbonate 21 mEq/L (21-32); Bilirubin Total 0.4 mg/dL (0.2-1.0); Globulin 4.5 g/dL (2.3-3.5); Glomerular Filtration Rate 132 ml/min (=/>90); Glucose Level 387 mg/dL (74-106); Potassium 2.6 mEq/L (3.5-5.1); Protein, Total 6.6 g/dL (6.4-8.2)
[2023-12-25 18:03] LABS: ALT/SGPT < 14 U/L (16-61); AST/SGOT < 10 U/L (15-37); Bilirubin Direct < 0.2 mg/dL (0-0.2); Bilirubin Indirect, Calculated 0.2 mg/dL (0.2-0.8); Troponin High Sensitivity < 3.0 pg/mL (<58.9)
[2023-12-25 18:05] LABS: Sodium Level 131 mEq/L (136-145)
[2023-12-25] MEDS ORDERED: NA CHLORIDE 0.9% 100 ML ONE (18:11)
[2023-12-25] MEDS ORDERED: CEFEPIME 2 GM VIAL ONE (18:11)
[2023-12-25] MEDS ORDERED: VANCOMYCIN 1 GM/VIAL ONE (18:11)
[2023-12-25] MEDS ORDERED: NA CHLORIDE 0.9% 250 ML ONE (18:12)
[2023-12-25] MEDS ORDERED: POTASSIUM 25 MEQ EFFERV TAB ONE (18:44)
[2023-12-25] MEDS ORDERED: KCL 20 MEQ/100 mL IVPB 200 ML IV ONE (18:45)
[2023-12-25 18:47] LABS: PT Prothrombin Time 14.4 SECONDS (9.4-12.5); PTT, Activated Partial Thromb 33.9 SECONDS (24.3-36.9); Protime INR 1.3
--- NOTE | 2023-12-25 19:17 | RAD REPORT ---
EXAMINATION: CTA CHEST PE CLINICAL INDICATION: CHEST PAIN TECHNIQUE: This examination was performed according to an angiographic protocol with 3D post-processi ng. This involves 3D reconstructions, MIPs, volume rendered images and/or shaded surface rendering. One or more of the following dose reduction techniques were used: Automated exposure control, adjustm ent of the mA and/or kV according to patient size, and/or iterative reconstruction. Unless otherwise specified, incidental findings do not require dedicated imaging follow-up. COMPARISON: No prior exam. FINDINGS: PULMONARY ARTERIES: Normal caliber. No evidence of pulmonary emboli to the subsegmental level. THORACIC AORTA: Normal caliber and configuration. LUNGS: Moderate area of lung consolidation is seen involving the left mid and lower lung. PLEURA: Moderate to large loculated left pleural effusion. MEDIASTINUM AND LYMPH NODES: Mildly prominent mediastinal lymph nodes, largest in the AP window regio n measuring 10 mm. OSSEOUS STRUCTURES AND CHEST WALL: Intact. UPPER ABDOMEN: No significant abnormalities. IMPRESSION: No evidence of pulmonary emboli to the subsegmental level. Moderate-sized area of lung consolidation left lung with moderate to large loculated left pleural eff usion. Findings likely related to infection/pneumonia.
--- NOTE | 2023-12-25 19:33 | EDPHYS ---
Physician Documentation [facility] Name: Chinmay Mitchell Age: 33 yrs Sex: Male : 1990 Arrival Date: 12/25/2023 Time: 17:08 Bed 16 Private MD: ED Physician Jaren Greenberg HPI: 12/24 18:20 This 33 yrs old Male presents to ER via EMS with complaints of cough. rt 18:20 Patient who is an insulin-dependent diabetic presents to the ED with about 1 week of rt cough, left-sided chest pain, shortness of breath, worsening today. Patient has had similar symptoms previously. Denies other acute complaints at this time, symptoms are moderate in severity, no other aggravating or alleviating factors.. Historical: - Allergies: 17:39 Amoxicillin; db - PMHx: 17:39 Crohn's Disease; Diabetes - IDDM; db - Immunization history:: Adult Immunizations unknown. - Infectious Disease History:: Denies. - Social history:: Smoking status: Patient denies any tobacco usage or history of. - Family history:: not pertinent. ROS: 18:20 Constitutional: Negative for fever, chills, and weight loss, Abdomen/GI: Negative for rt abdominal pain, nausea, vomiting, diarrhea, and constipation, MS/Extremity: Negative for injury and deformity, Skin: Negative for injury, rash, and discoloration, Neuro: Negative for headache, weakness, numbness, tingling, and seizure, 18:20 Cardiovascular: Positive for chest pain, Negative for edema, 18:20 Respiratory: Positive for cough, shortness of breath, Exam: 18:20 Constitutional: This is a well developed, well nourished patient who is awake, alert, rt and in no acute distress. Head/Face: Normocephalic, atraumatic. Chest/axilla: Normal chest wall appearance and motion. Nontender with no deformity. No lesions are appreciated. Cardiovascular: Regular rate and rhythm with a normal S1 and S2. No gallops, murmurs, or rubs. Normal PMI, no JVD. No pulse deficits. Abdomen/GI: Soft, non-tender, with normal bowel sounds. No distension or tympany. No guarding or rebound. No evidence of tenderness throughout. Skin: Warm, dry with normal turgor. Normal color with no rashes, no lesions, and no evidence of cellulitis. MS/ Extremity: Pulses equal, no cyanosis. Neurovascular intact. Full, normal range of motion. Neuro: Awake and alert, GCS 15, oriented to person, place, time, and situation. Cranial nerves II-XII grossly intact. Motor strength 5/5 in all extremities. Sensory grossly intact. Cerebellar exam normal. Normal gait. 18:20 ECG was reviewed by the Attending Physician. 18:20 Respiratory: Diminished breath sounds in left lung bah, right side clear, Vital Signs: 17:20 BP 124 / 93; Pulse 94; Resp 16; Temp 97.9; Pulse Ox 94% ; Weight 52.16 kg; Height 5 ft. db 11 in. ; 18:00 BP 129 / 97; Pulse 91; Resp 18; Pulse Ox 94% on R/A; db 18:30 BP 113 / 87; Pulse 89; Resp 18; Pulse Ox 94% on R/A; db 19:30 BP 121 / 88; Pulse 96; Resp 18; Temp 98(O); Pulse Ox 94% on R/A; Pain 0/10; rg5 20:40 BP 104 / 81; Pulse 96; Resp 18 S; Pulse Ox 95% ; Pain 0/10; rg5 21:25 BP 109 / 87; Pulse 95; Resp 18; Pulse Ox 94% on R/A; Pain 0/10; rg5 17:20 Body Mass Index 16.04 (52.16 kg, 180.34 cm) db 19:30 Pain Scale: Adult rg5 20:40 Pain Scale: Adult rg5 21:25 Pain Scale: Adult rg5 MDM: 17:16 Medical Screening Exam initiated rt 20:05 Differential Diagnosis altered mental status, sepsis, flu. Data reviewed: vital signs, sp4 nurses notes. 20:07 Consideration of Admission/Observation Escalation of care including rt admission/observation considered. Patient requires CT surgery evaluation, requires transfer. I considered the following discharge prescriptions or medication management in the emergency department Medications were administered in the Emergency Department. See MAR. Independent interpretation of the following test(s) in the Emergency Department CT Scan: My interpretation is Loculated pleural effusion seen on interpretation of CT scan images. Care significantly affected by the following chronic conditions: Diabetes. Counseling: I had a detailed discussion with the patient and/or guardian regarding the historical points, exam findings, and any diagnostic results supporting the discharge/admit diagnosis, lab results, radiology results, the need to transfer to another facility. Response to treatment: the patient's symptoms have mildly improved after treatment. 20:54 ED course: Was reevaluated he is a emaciated white male with multiple skin sores and sp4 signs of weight loss and physical deconditioning. However vital signs are stable and patient stable for transfer to [facility] via EMS ground transport. 20:56 ED course: EXAMINATION: CTA CHEST PE CLINICAL INDICATION: CHEST PAIN TECHNIQUE: This sp4 examination was performed according to an angiographic protocol with 3D postprocessing. This involves 3D reconstructions, MIPs, volume rendered images and/or shaded surface rendering. One or more of the following dose reduction techniques were used: Automated exposure control, adjustment of the mA and/or kV according to patient size, and/or iterative reconstruction. Unless otherwise specified, incidental findings do not require dedicated imaging follow-up. COMPARISON: No prior exam. FINDINGS: PULMONARYARTERIES: Normal caliber. No evidence of pulmonary emboli to the subsegmental level. THORACIC AORTA: Normal caliber and configuration. LUNGS: Moderate area of lung consolidation is seen involving the left mid and lower lung. PLEURA: Moderate to large loculated left pleural effusion. MEDIASTINUM AND LYMPH NODES: Mildly prominent mediastinal lymph nodes, largest in the AP window region measuring 10 mm. OSSEOUS STRUCTURES AND CHEST WALL: Intact. UPPER ABDOMEN: No significant abnormalities. IMPRESSION: No evidence of pulmonary emboli to the subsegmental level. Moderate-sized area of lung consolidation left lung with moderate to large loculated left pleural effusion. Findings likely related to infection/pneumonia. . ED course: EXAMINATION: ONE VIEW CHEST XR CLINICAL INDICATION: CHEST PAIN TECHNIQUE: Frontal chest projection is submitted. Examination is limited by patient positioning and technique. COMPARISON: 12/25/2023 FINDINGS: There is significant opacification of the left lung with loculated pleural fluid collection also present left thoracic cage. This could be infectious or neoplastic. The heart is normal in size. CT chest recommended for further evaluation. . 12/24 17:16 Order name: Basic Metabolic Panel; Complete Time: 18:19 rt 12/24 17: Order name: CBC with Diff; Complete Time: 19:55 rt 12/24 17:17 Order name: D-Dimer; Complete Time: 17:51 rt 12/24 17:17 Order name: LFT's; Complete Time: 18:19 rt 12/24 17:17 Order name: Troponin HS; Complete Time: 18:19 rt 12/24 17:17 Order name: BHB; Complete Time: 18:19 rt 12/24 18:00 Order name: Blood Culture Adult (2) rt 12/24 18:00 Order name: Lactate w/ 2H reflex if indic.; Complete Time: 18:58 rt 12/24 18:00 Order name: Protime (+inr); Complete Time: 18:58 rt 12/24 18:00 Order name: Ptt, Activated; Complete Time: 18:58 rt 12/24 19:48 Order name: CBC Smear Scan; Complete Time: 19:55 EDMS 12/24 17:17 Order name: XRAY Chest (1 view); Complete Time: 17:50 rt 12/24 18:00 Order name: CT Chest For PE Angio; Complete Time: 19:18 rt 12/24 17:17 Order name: EKG; Complete Time: 17:17 rt 12/24 17:17 Order name: Cardiac monitoring; Complete Time: 17:35 rt 12/24 17:17 Order name: EKG - Nurse/Tech; Complete Time: 18:08 rt 12/24 17:17 Order name: IV Saline Lock; Complete Time: 17:35 rt 12/24 17:17 Order name: Labs collected and sent; Complete Time: 17:35 rt 12/24 17:17 Order name: O2 Per Protocol; Complete Time: 17:35 rt 12/24 17:17 Order name: O2 Sat Monitoring; Complete Time: 17:35 rt 12/24 18:00 Order name: IV Saline Lock - Large Bore; Complete Time: 18:08 rt 12/24 18:00 Order name: Vital Signs; Complete Time: 18:08 rt EC:20 Rate is 88 beats/min. Rhythm is regular, Normal Sinus Rhythm with No ectopy. QRS [place] rt is Normal. MT interval is normal. QRS interval is normal. QT interval is normal. No Q waves. Administered Medications: 17:30 Drug: NS 0.9% IV 1000 ml IV at 1 bolus Per protocol; to be given as a bolus over 60 db minutes Route: IV; Rate: 1 bolus; Site: left forearm; 18:30 Drug: Cefepime IVPB 2 grams IVPB at 200 ml/hr once over 30 mins; (mix in NS 100 mL) db Route: IVPB; Rate: 200 ml/hr; Infused Over: 30 mins; Site: left forearm; 21:46 Follow up: Response: No adverse reaction; IV Status: Completed infusion; IV Intake: rg5 100ml 19:20 Drug: vancoMYCIN IVPB 1 grams IVPB once over 2 hrs Route: IVPB; Infused Over: 2 hrs; rg5 Site: left forearm; 21:46 Follow up: IV Status: Completed infusion; IV Intake: 250ml rg5 19:20 Drug: Potassium PO Effervescent Tablet 50 mEq PO once; dissolve in 4 ounces of water or rg5 juice Route: PO; 21:47 Follow up: Response: No adverse reaction rg5 19:20 Drug: Potassium Chloride IV 40 mEq IV at 40 calculated rate once; administer over 4 rg5 hours Route: IV; Rate: 40 calculated rate; Site: right forearm; 21:45 Follow up: Response: No adverse reaction rg5 21:46 Follow up: IV Status: Infusion continued upon transfer rg5 20:53 Drug: NS 0.9% IV (30 ml/kg) 30 ml/kg IV at bolus once; Sepsis Protocol; to be given as rg5 a bolus over 90 minutes Route: IV; Rate: bolus; Site: right forearm; 21:45 Follow up: IV Status: Infusion continued upon transfer rg5 Disposition Summary: 12/25/23 19:33 Transfer Ordered Notes: Transfer Location: [facility] rt Reason: Higher level of care rt Condition: Fair rt Problem: new rt Symptoms: have improved rt Accepting Physician: (12/25/23 21:47) rg5 Diagnosis - Loculated pleural effusion rt - Left-sided pneumonia rt - Hyperglycemia rt - Sepsis rt - Hypokalemia rt Forms: - Medication Reconciliation Form rt - SBAR form rt Critical care time excluding procedures: 20:07 Critical care time: Bedside Care: 35 minutes. Total time: 35 minutes rt Signatures: Dispatcher [employer] Gay Blake RN RN db Reza Cain MD MD rt Jaren Greenberg MD MD sp4 Adan King RN RN rg5 Corrections: (The following items were deleted from the chart) 18:01 18:01 Chest For PE Angio+CT.RAD.BRZ ordered. EDMS EDMS 18:08 18:00 Acceliceo ordered. rt ss 21:47 19:33 Dr. shahid rg5
--- NOTE | 2023-12-25 19:33 | ER ---
Nurse's Notes [facility] Name: Chinmay Mitchell Age: 33 yrs Sex: Male : 1990 Arrival Date: 12/25/2023 Time: 17:08 Bed 16 Private MD: Diagnosis: Loculated pleural effusion;Left-sided pneumonia;Hyperglycemia;Sepsis;Hypokalemia Presentation: 12/24 17:20 Chief complaint: EMS states: COUGH, DIARRHEA AND FEELING SICK X 4 TO 5 DAYS. INCREASED db LEFT SIDE PAIN WITH INHALATION. Coronavirus screen: Client denies travel out of the [place] in the last 14 days. At this time, the client does not indicate any symptoms associated with coronavirus-19. Ebola Screen: Patient negative for fever greater than or equal to 101.5 degrees Fahrenheit, and additional compatible Ebola Virus Disease symptoms Patient denies exposure to infectious person. Patient denies travel to an Ebola-affected area in the 21 days before illness onset. No symptoms or risks identified at this time. Initial Sepsis Screen: Does the patient meet any 2 criteria? No. Patient's initial sepsis screen is negative. Does the patient have a suspected source of infection? No. Patient's initial sepsis screen is negative. Risk Assessment: Do you want to hurt yourself or someone else? Patient reports no desire to harm self or others. Onset of symptoms was December 21, 2023. Care prior to arrival: Medication(s) given: Normal saline infusion, 1000 mL, zofran 4 mg, FENTANYL 100 MCG IV initiated. 18 GA, in the left forearm, Glucose check: 408. 17:20 Method Of Arrival: EMS: [facility] db 17:20 Acuity: BROOKE 3 db 18:35 Acuity: BROOKE 2 db Triage Assessment: 17:39 General: Appears in no apparent distress. comfortable, Behavior is calm, cooperative, db appropriate for age. Pain: Complains of pain in abdomen. Neuro: Level of Consciousness is awake, alert, obeys commands, Oriented to person, place, time, situation. Respiratory: Airway is patent Respiratory effort is even, unlabored, Respiratory pattern is regular, symmetrical. Historical: - Allergies: 17:39 Amoxicillin; db - PMHx: 17:39 Crohn's Disease; Diabetes - IDDM; db - Immunization history:: Adult Immunizations unknown. - Infectious Disease History:: Denies. - Social history:: Smoking status: Patient denies any tobacco usage or history of. - Family history:: not pertinent. Screenin:36 [facility] ED Fall Risk Assessment (Adult) History of falling in the last 3 months, db including since admission No falls in past 3 months (0 pts) Confusion or Disorientation No (0 pts) Intoxicated or Sedated No (0 pts) Impaired Gait No (0 pts) Mobility Assist Device Used No (0 pt) Altered Elimination No (0 pt) Score/Fall Risk Level 0 - 2 = Low Risk Oriented to surroundings, Maintained a safe environment. Abuse screen: Denies threats or abuse. Denies injuries from another. Nutritional screening: No deficits noted. Tuberculosis screening: No symptoms or risk factors identified. Assessment: 17:45 General: Appears in no apparent distress. comfortable, Behavior is calm, cooperative. db Neuro: Level of Consciousness is awake, alert, obeys commands, Oriented to person, place, time, situation. 18:37 Reassessment: Patient appears in no apparent distress at this time. Patient and/or db family updated on plan of care and expected duration. Pain level reassessed. Patient is alert, oriented x 3, equal unlabored respirations, skin warm/dry/pink. 19:10 General: Appears in no apparent distress. comfortable, Behavior is calm, cooperative, rg5 appropriate for age. 19:10 Pain: Denies pain. Neuro: Level of Consciousness is awake, alert, obeys commands, rg5 Oriented to person, place, time, situation. Cardiovascular: Denies chest pain, shortness of breath, Heart tones S1 S2 Capillary refill < 3 seconds Patient's skin is warm and dry. Rhythm is sinus rhythm. Respiratory: Airway is patent Trachea midline Respiratory effort is even, unlabored, Respiratory pattern is regular, symmetrical. GI: Abdomen is flat, Bowel sounds present X 4 quads. : No signs and/or symptoms were reported regarding the genitourinary system. : No deficits noted. EENT: No deficits noted. Derm: Skin is intact, Skin is dry, Skin is normal, Skin temperature is warm. Musculoskeletal: Circulation, motion, and sensation intact. Vital Signs: 17:20 BP 124 / 93; Pulse 94; Resp 16; Temp 97.9; Pulse Ox 94% ; Weight 52.16 kg; Height 5 ft. db 11 in. ; 18:00 BP 129 / 97; Pulse 91; Resp 18; Pulse Ox 94% on R/A; db 18:30 BP 113 / 87; Pulse 89; Resp 18; Pulse Ox 94% on R/A; db 19:30 BP 121 / 88; Pulse 96; Resp 18; Temp 98(O); Pulse Ox 94% on R/A; Pain 0/10; rg5 20:40 BP 104 / 81; Pulse 96; Resp 18 S; Pulse Ox 95% ; Pain 0/10; rg5 21:25 BP 109 / 87; Pulse 95; Resp 18; Pulse Ox 94% on R/A; Pain 0/10; rg5 17:20 Body Mass Index 16.04 (52.16 kg, 180.34 cm) db 19:30 Pain Scale: Adult rg5 20:40 Pain Scale: Adult rg5 21:25 Pain Scale: Adult rg5 ED Course: 17:16 Patient arrived in ED. rt 17:16 Reza Cain MD is Attending Physician. rt 17:23 Gay Chavez, TRELL is Primary Nurse. db 17:39 Triage completed. db 17:39 Arm band placed on Patient placed in an exam room. db 17:41 XRAY Chest (1 view) In Process Unspecified. EDMS 17:46 Maintain EMS IV. Dressing intact. Good blood return noted. Site clean \T\ dry. Gauge \T\ db site: 18 G LFA. 18:05 Notified ED physician of a critical lab result(s). POTASSIUM 2.6. db 18:06 EKG done, by ED staff. db 18:11 First set of blood cultures drawn by me. db 18:27 Initial lab(s) drawn, by me, sent to lab. Second set of blood cultures drawn by me. db Inserted saline lock: 20 gauge in right forearm, using aseptic technique. Blood collected. Flushed with 10 mL NS. 18:[address] via stretcher. db 19:10 Patient has correct armband on for positive identification. rg5 19:10 No provider procedures requiring assistance completed. rg5 19:12 CT Chest For PE Angio In Process Unspecified. EDMS 19:20 Adan King, TRELL is Primary Nurse. rg5 19:50 Initiated transfer with Kimberli at [facility]. rv1 20:05 Attending Physician role handed off by Reza Cain MD sp4 20:05 Jaren Greenberg MD is Attending Physician. sp4 20:11 Doc to Doc with Thoracic Sx. rv1 20:26 Doc to Doc with Hospitalist. rv1 20:[address] Lewis to [facility] 1419 Report # [phone]. rv1 20:40 Nurse to nurse report give to Adan CAI. rv1 20:57 Lorraine with [place] gave 20 min ETA. rv1 21:45 Provided Education on: needs for transfer. rg5 21:45 Patient transferred, IV remains in place. intact, No redness/swelling at site. rg5 Administered Medications: 17:30 Drug: NS 0.9% IV 1000 ml IV at 1 bolus Per protocol; to be given as a bolus over 60 db minutes Route: IV; Rate: 1 bolus; Site: left forearm; 18:30 Drug: Cefepime IVPB 2 grams IVPB at 200 ml/hr once over 30 mins; (mix in NS 100 mL) db Route: IVPB; Rate: 200 ml/hr; Infused Over: 30 mins; Site: left forearm; 21:46 Follow up: Response: No adverse reaction; IV Status: Completed infusion; IV Intake: rg5 100ml 19:20 Drug: vancoMYCIN IVPB 1 grams IVPB once over 2 hrs Route: IVPB; Infused Over: 2 hrs; rg5 Site: left forearm; 21:46 Follow up: IV Status: Completed infusion; IV Intake: 250ml rg5 19:20 Drug: Potassium PO Effervescent Tablet 50 mEq PO once; dissolve in 4 ounces of water or rg5 juice Route: PO; 21:47 Follow up: Response: No adverse reaction rg5 19:20 Drug: Potassium Chloride IV 40 mEq IV at 40 calculated rate once; administer over 4 rg5 hours Route: IV; Rate: 40 calculated rate; Site: right forearm; 21:45 Follow up: Response: No adverse reaction rg5 21:46 Follow up: IV Status: Infusion continued upon transfer rg5 20:53 Drug: NS 0.9% IV (30 ml/kg) 30 ml/kg IV at bolus once; Sepsis Protocol; to be given as rg5 a bolus over 90 minutes Route: IV; Rate: bolus; Site: right forearm; 21:45 Follow up: IV Status: Infusion continued upon transfer rg5 Medication: 19:10 VIS not applicable for this client. rg5 Intake: 21:46 IV: 250ml; Total: 250ml. rg5 21:46 IV: 100ml; Total: 350ml. rg5 Outcome: 19:33 ER care complete, transfer ordered by . rt 21:44 Transferred by ground EMS to [facility], rg5 21:44 Condition: stable 21:44 Instructed on the need for transfer, 21:47 Patient left the ED. rg5 Signatures: Dispatcher [employer] EDGay Bella RN RN db Reza Cain MD MD rt Dariana Dorsey rv1 Jaren Greenberg MD MD sp4 Adan King RN RN rg5 Corrections: (The following items were deleted from the chart) 20:48 20:46 Doc to Doc with Thoracic SX rv1 rv1 20:48 20:11 Doc to Doc with Thoracic SX rv1 rv1 20:49 20:[address] Lewis to [facility] RM 1419 rv1 rv1
[2023-12-25 19:47] LABS: White Blood Cell Scan OK (OK)
[2023-12-25 19:48] LABS: Blood Morphology Comment NOT SEEN (NOT SEEN); Platelet Estimate INCR
[2023-12-26 00:57] VITALS: TEMP 98
[2023-12-26 01:00] VITALS: BP 109/87; O2SAT 94
== END 2023-12-25 21:47 | disposition short-term general hospital (02) ==
LOC: ER 17:08
DX: J18.9 Pneumonia, unspecified organism (principal); A41.9 Sepsis, unspecified organism; J91.8 Pleural effusion in other conditions classified elsewhere; E87.6 Hypokalemia; E11.65 Type 2 diabetes mellitus with hyperglycemia
CPT/HCPCS: 93005; 87040 ×2; 85025; 80048; 36415; 85610; 82947; 85379; 80076; 83605; 85730; 84484; 82010; 71275; 71045; 99285; Q9967; J3480; J0692; J7050; J7030 ×2